=== PATIENT | female | born 1935 | race Caucasian/White ===

== ENCOUNTER 2016-10-31 10:20 | Inpatient (IN) | payer OTHER ==
[~2016-10-31] VITALS: Ht 147.3 cm; Wt 66.2 kg
[2016-10-31 10:36] VITALS: BP 153/90
[2016-10-31] MEDS ORDERED: NACL 0.9% 1,000 ML IV SCH ×2 (10:38)
[2016-10-31] MEDS ORDERED: ONDANSETRON 4 MG/2 ML VIAL IVP ONE ×2 (10:40)
[2016-10-31] MEDS ORDERED: MORPHINE SULFATE 4 MG/ML SYR IVP ONE (10:40)
--- NOTE | 2016-10-31 10:50 | NUR ---
Patient to bed 04.
--- NOTE | 2016-10-31 10:53 | NUR ---
Dr. Mccoy evaluating patient at bedside.
--- NOTE | 2016-10-31 10:55 | NUR ---
PT PRESENTS TO ED DUE TO RUQ PAIN RADIATING TO RIGHT FLANK X 3 DAYS DENIES N/V/D;HX-HTN, HYPERLIPIDEMIA;RX - VIT D3, LOSARTAN/HCT 50-12.5MG, METOPROLOL, ISOSORBIDE, MOTRIN, SIMVASTATIN, ALENDRONATED; SKIN IS PINK/WARM/DRY; AAOX4 WITH EVEN AND STEADY GAIT; LUNGS CLEAR BL; HR EVEN AND REGULAR; PT DENIES ANY FEVER, CP, SOB, OR COUGH AT THIS TIME; PATIENT STATES PAIN OF 10/10 AT THIS TIME;PATIENT POSITIONED FOR COMFORT; HOB ELEVATED; BEDRAILS UP X2; BED DOWN.
--- NOTE | 2016-10-31 10:57 | NUR ---
Patient taken to CT via wheelchair per tech.
[2016-10-31 11:00] LABS: BASOPHILS # (AUTO) 0.2 K/uL (0.00-0.22); BASOPHILS % (AUTO) 1.5 % (0.0-2.0); EOSINOPHILS # (AUTO) 0.2 K/uL (0-0.4); EOSINOPHILS % (AUTO) 1.8 % (0.0-4.0); HEMOGLOBIN 13.9 g/dL (12.0-16.0); LYMPHOCYTES # (AUTO) 2.6 K/uL (2.5-16.5); MEAN CORPUSCULAR HEMOGLOBIN 28 pg (27-31); MEAN CORPUSCULAR HGB CONC 32 g/dL (33-37); MEAN CORPUSCULAR VOLUME 88 fL (80-94); MONOCYTES # (AUTO) 0.9 K/uL (0.8-1.0); MONOCYTES % (AUTO) 7.3 % (1.7-9.3); NEUTROPHILS # (AUTO) 8.6 K/uL (1.8-7.7); NEUTROPHILS % (AUTO) 68.4 % (42.2-75.2); PLATELET COUNT (AUTO) 205 K/uL (140-450); RED CELL DISTRIBUTION WIDTH 13.1 % (11.6-13.7); WHITE BLOOD COUNT (AUTO) 12.5 K/uL (4.8-10.8)
[2016-10-31 11:04] LABS: APPEARANCE,URINE CLEAR (CLEAR); BILIRUBIN,URINE NEGATIVE (NEGATIVE); BLOOD, URINE NEGATIVE (NEGATIVE); COLOR,URINE YELLOW (YELLOW); LEUKOCYTE ESTERASE ,URINE NEGATIVE (NEGATIVE); NITRITE, URINE NEGATIVE (NEGATIVE); PH,URINE 6.5 (5.0-9.0); PROTEIN,URINE NEGATIVE (NEGATIVE); UGLUCOSE NEGATIVE (NEGATIVE); UROBILINOGEN,URINE 0.2 EU/dL (0.2 - 1)
--- NOTE | 2016-10-31 11:07 | NUR ---
Patient back from CT via wheelchair per tech.
[2016-10-31 11:10] LABS: CALCIUM 8.4 mg/dL (8.5-10.1); CARBON DIOXIDE 29.5 mmol/L (21-32); CHLORIDE 103 mmol/L (98-107); CREATININE 0.9 mg/dL (0.6-1.3); GLUCOSE 85 mg/dL (74-106); POTASSIUM 3.5 mmol/L (3.5-5.1); SODIUM SERUM 139 mmol/L (136-145); UREA NITROGEN, BLOOD 14 mg/dL (7-18)
[2016-10-31 11:16] LABS: ALANINE AMINOTRANSFERASE 28 U/L (12-78); ALBUMIN 3.8 g/dL (3.4-5.0); ALKALINE PHOSPHATASE 72 U/L (46-116); AMYLASE 43 U/L (25-115); ASPARTATE AMINOTRANSFERASE 23 U/L (15-37); LIPASE 104 U/L (73-393); TOTAL BILIRUBIN 0.4 mg/dL (0.0-1.0); TOTAL PROTEIN, SERUM 7.8 g/dL (6.4-8.2)
--- NOTE | 2016-10-31 11:24 | NUR ---
ASKED DR BAEZ IF I HAVE TO GIVE THE OTHER DOSE OF ZOFRAN SAID GIVE HER 4 MG ZOFRAN FOR NOW.NO N/V NOTED TO PT.
--- NOTE | 2016-10-31 12:20 | NUR ---
PT RESTING ON BED;VERBALIZES DECREASE OF PAIN FROM 10/10 TO 6/10;NO FACIAL GRIMMACING/MOANING NOTED;
--- NOTE | 2016-10-31 12:41 | NUR ---
Patient will be admitted to care of DR WELLS. Admited to TELE. Will go to room 122 A. Belongings list completed. Report to OFELIA MEDLEY.
[2016-10-31] MEDS: NACL 0.9% 1,000 ML IV SCH (12:42)
[2016-10-31] MEDS ORDERED: ACETAMINOPHEN 325 MG TAB PO PRN (12:45)
[2016-10-31] MEDS ORDERED: ONDANSETRON 4 MG/2 ML VIAL IVP PRN (12:45)
[2016-10-31 13:10] VITALS: BP 156/85
--- NOTE | 2016-10-31 13:10 | NUR ---
PATIENT ADMITTED TO THE UNIT FROM ER. PATIENT AWAKE, ALERT, ORIENTED AND AMBULATORY. NO S/S OF DISTRESS NOTED. NO C/O PAIN AT THIS MOMENT. PATIENT ON 2L O2 VIA NC. SKIN IS INTACT. PATIENT'S GRANDDAUGHTER AT BEDSIDE PROVIDING PATIENT HX. IV LINE NOTED TO THE LEFT AC. PATIENT PLACED ON TELE MONITORING. BED LOWERED WITH CALL LIGHT WITHIN REACH. WILL CONTINUE TO MONITOR
[2016-10-31] MEDS ORDERED: AMPICILLIN/SULBACTAM 3 GM in NACL 0.9% 100 ML IV SCH (13:21)
[2016-10-31 13:22] LABS: PARTIAL THROMBOPLASTIN TIME 26.3 secs (22-35.6); PROTHROMBIN TIME 10.1 secs (10.8-13.4)
[2016-10-31 13:33] LABS: FREE T4 (FREE THYROXINE) 1.01 ng/dL (0.76-1.46); PHOSPHORUS 2.7 mg/dL (2.5-4.9); THYROID STIMULATING HORMONE 9.23 uIU/mL (0.34-3.76)
[2016-10-31] MEDS ORDERED: PNEUMOCOCCAL VACCINE 23 MCG/0.5 ML VIAL IMVAC SCH (14:40)
[2016-10-31 16:00] VITALS: BP 146/78
[2016-10-31] MEDS: MORPHINE SULFATE 2 MG/ML SYR IVP PRN ×2 (16:03→20:59)
--- NOTE | 2016-10-31 16:51 | NUR ---
PATIENT RESTING COMFORTABLY IN BED. GRANDDAUGHTER PRESENT AT BEDSIDE. NO S/S OF DISTRESS NOTED
[2016-10-31] MEDS: AMPICILLIN/SULBACTAM 3 GM in NACL 0.9% 100 ML IV SCH ×2 (17:21→23:55)
[2016-10-31] MEDS: HYDROcodone/APAP 5/325 MG 1 TAB TAB PO PRN (17:21)
[2016-10-31] MEDS ORDERED: CHOL20005 PO (17:54)
[2016-10-31] MEDS ORDERED: HYDR-3423 PO (17:55)
[2016-10-31] MEDS ORDERED: METO25TE2 PO (17:55)
[2016-10-31] MEDS ORDERED: ISOS30TE35 PO (17:56)
[2016-10-31] MEDS ORDERED: SIMV20TA6 PO (17:58)
[2016-10-31] MEDS ORDERED: ALEN70TA52 PO (17:58)
--- NOTE | 2016-10-31 19:25 | NUR ---
PATIENT REPORT GIVEN AT BEDSIDE. PATIENT ENDORSED IN STABLE CONDITION
--- NOTE | 2016-10-31 19:26 | NUR ---
RECEIVED REPORT, ASSUMED CARE. PT AAOX4, CROATIAN SPEAKING. FAMILY AT BEDSIDE. RESPIRATION EVEN AND UNLABORED,NO SOB,NO S/S OF RESPIRATORY DISTRESS AT THIS TIME. IV ACCESS TO LT AC, GAUGE 22, INTACT AND PATENT WITH NO S/S OF INFILTRATION. INFUSING NS @ 70ML/HR. CONTINUE TO MONITOR FOR S/P OVERDOSED. PT ADMITS MARITAL PROBLEM. DENIES FEELING SUICIDAL OR THOUGHTS OF HARMING HERSELF AT THIS TIME. PT ABLE TO CONTRACT FOR SAFETY. EDUCATION PROVIDED RE: SAFETY AD FALL PREVENTION. INSTRUCTED TO SEEK HELP FROM STAFF FOR ANY ONSET OF SI. PT VERBALIZED UNDERSTANDING. ALL NEEDS ANTICIPATED. CALL LIGHT WITHIN EASY REACH. WILL CONTINUE TO MONITOR. Addendum: 10/31/16 at 2245 by Cari Velez RN DISREGARD PREVIOUS CHARTING.
--- NOTE | 2016-10-31 19:27 | NUR ---
RECEIVED REPORT, ASSUMED CARE. PT AAOX4, MALIAN SPEAKING. FAMILY AT BEDSIDE. DENIES PAIN AT THIS TIME. RESPIRATION EVEN AND UNLABORED,NO SOB,NO S/S OF RESPIRATORY DISTRESS AT THIS TIME. IV ACCESS TO LT AC, GAUGE 22, INTACT AND PATENT WITH NO S/S OF INFILTRATION. INFUSING NS @ 70ML/HR. EDUCATION PROVIDED RE: SAFETY AD FALL PREVENTION. INSTRUCTED TO CALL FOR STAFF WHEN GOING TO THE BATHROOM TO PREVENT FROM FALLING. DISCUSSED PLAN OF CARE, TRANSLATED BY STAFF. PT VERBALIZED UNDERSTANDING. ALL NEEDS ANTICIPATED. CALL LIGHT WITHIN EASY REACH. WILL CONTINUE TO MONITOR.
--- NOTE | 2016-10-31 19:55 | NUR ---
CAROTID US BEING DONE AT BEDSIDE.
[2016-10-31 20:00] VITALS: BP 144/72
--- NOTE | 2016-10-31 20:09 | NUR ---
DR. QUINTANILLA IN THE UNIT, SPOKE WITH THE PATIENT AND FAMILY ABOUT THE PLAN SURGERY TOMORROW. PT VERBALIZED UNDERSTANDING AND SIGNED THE CONSENT.
--- NOTE | 2016-10-31 20:50 | NUR ---
SCHEDULED MEDS GIVEN, PT TOLERATED WELL. NO AR.
[2016-10-31] MEDS: SIMVASTATIN 20 MG TAB PO SCH (20:52)
--- NOTE | 2016-10-31 21:21 | NUR ---
PAGED DR. QUINTANILLA TO OBTAIN ORDER FOR TYPE AND SCREEN FOR POSSIBLE BLOOD TRANSFUSION FOR TOMORROW'S SURGERY. MESSAGE LEFT TO ELYSIA. AWAITING FOR CALL BACK.
--- NOTE | 2016-10-31 21:29 | NUR ---
DR. QUINTANILLA CALLED BACK AND ORDERED FOR TYPE AND SCREEN IN AM. NOTED AND CARRIED OUT.
--- NOTE | 2016-10-31 22:20 | NUR ---
ROUTINE ROUNDS, PT SLEEPING AT THIS TIME. RESPIRATION EVEN AND UNLABORED, NO SOB, NO S/S RESPIRATORY DISTRESS. CALL LIGHT KEPT WITHIN REACH. WILL CONTINUE TO MONITOR.
[2016-11-01] VITALS: BP 132/76
[2016-11-01] MEDS: NACL 0.9% 1,000 ML IV SCH (03:00)
[2016-11-01 04:00] VITALS: BP 142/74
--- NOTE | 2016-11-01 04:00 | NUR ---
PT AWAKE AT THIS TIME, WATCHING TV. NO C/O PAIN, NO S/S RESPIRATORY DISTRESS. ENCOURAGED TO GO BACK TO SLEEP. PT VERBALIZED UNDERSTANDING. WILL CONTINUE TO MONITOR.
[2016-11-01] MEDS: AMPICILLIN/SULBACTAM 3 GM in NACL 0.9% 100 ML IV SCH ×3 (05:26→17:56)
--- NOTE | 2016-11-01 07:15 | NUR ---
RECEIVED PATIENT REPORT AT BEDSIDE. PATIENT AWAKE, ALERT AND ORIENTED. NO S/S OF DISTRESS NOTED. PATIENT C/O ABDOMINAL PAIN. WILL MEDICATE. IV LINE TO THE LEFT AC INTACT WITH IVF INFUSING WELL. PATIENT ON TELE MONITORING. BED LOWERED WITH CALL LIGHT WITHIN REACH. WILL CONTINUE TO MONITOR
--- NOTE | 2016-11-01 07:17 | NUR ---
PT AWAKE AND VERBALLY RESPONSIVE. BREATHING EVEN AND UNLABORED,NO SOB, NO S/S OF RESPIRATORY DISTRESS AT THIS TIME. DENIES PAIN. FOR LAP CHOLECYSTECTOMY TODAY. CXR DONE TODAY. ENDORSED TO NEXT SHIFT FOR CONTINUITY OF CARE.
[2016-11-01 07:29] LABS: MAGNESIUM 1.9 mg/dL (1.8-2.4); PHOSPHORUS 2.8 mg/dL (2.5-4.9)
[2016-11-01 07:31] LABS: BASOPHILS # (AUTO) 0.1 K/uL (0.00-0.22); BASOPHILS % (AUTO) 1.5 % (0.0-2.0); EOSINOPHILS # (AUTO) 0.2 K/uL (0-0.4); EOSINOPHILS % (AUTO) 3.1 % (0.0-4.0); HEMOGLOBIN 12.8 g/dL (12.0-16.0); LYMPHOCYTES % (AUTO) 24.6 % (20.5-51.1); MEAN CORPUSCULAR HEMOGLOBIN 30 pg (27-31); MEAN CORPUSCULAR HGB CONC 34 g/dL (33-37); MEAN CORPUSCULAR VOLUME 89 fL (80-94); MONOCYTES # (AUTO) 0.7 K/uL (0.8-1.0); MONOCYTES % (AUTO) 8.2 % (1.7-9.3); NEUTROPHILS % (AUTO) 62.6 % (42.2-75.2); PLATELET COUNT (AUTO) 177 K/uL (140-450); RED CELL DISTRIBUTION WIDTH 13.1 % (11.6-13.7)
[2016-11-01 07:33] LABS: ANION GAP 11.8 (8-16); CALCIUM 7.5 mg/dL (8.5-10.1); CHLORIDE 105 mmol/L (98-107); CREATININE 0.8 mg/dL (0.6-1.3); GLUCOSE 90 mg/dL (74-106); POTASSIUM 3.8 mmol/L (3.5-5.1); SODIUM SERUM 141 mmol/L (136-145); UREA NITROGEN, BLOOD 11 mg/dL (7-18)
[2016-11-01 08:00] VITALS: BP 162/77
[2016-11-01] MEDS: METOPROLOL SUCCINATE 50 MG TABER PO SCH (08:08)
[2016-11-01] MEDS: MORPHINE SULFATE 2 MG/ML SYR IVP PRN (08:09)
[2016-11-01] MEDS: ISOSORBIDE MONONITRATE 30 MG TABER PO SCH (08:09)
[2016-11-01] MEDS ORDERED: NON-FORMULARY ITEM (Losartan/Hydrochlorothiazide (Losartan-Hctz 50-12.5 mg Tab) 1 TAB) PO SCH (09:00)
[2016-11-01] MEDS: CHOLECALCIFEROL 1,000 IU TAB PO SCH (09:02)
[2016-11-01] MEDS: HYDROCHLOROTHIAZIDE 25 MG TAB PO SCH (09:02)
[2016-11-01] MEDS: LOSARTAN 50 MG TAB PO SCH (09:03)
--- NOTE | 2016-11-01 10:15 | NUR ---
PATIENT LEFT THE UNIT FOR SURGERY. PATIENT LEFT IN STABLE CONDITION
[2016-11-01] MEDS ORDERED: ONDANSETRON 4 MG/2 ML VIAL ONE (10:41)
[2016-11-01] MEDS ORDERED: LIDOCAINE 2% 100 MG/5 ML SYR IVP ONE (10:41)
[2016-11-01] MEDS ORDERED: ePHEDrine 50 MG/ML VIAL ONE (10:41)
[2016-11-01] MEDS ORDERED: PROPOFOL 200 MG/20 ML VIAL IV ONE (10:41)
[2016-11-01] MEDS ORDERED: DESFLURANE 240 ML BTL INH ONE (10:41)
[2016-11-01] MEDS ORDERED: DEXAMETHASONE 4 MG/ML VIAL ONE (10:41)
[2016-11-01] MEDS ORDERED: SUCCINYLCHOLINE CHLORIDE 200 MG/10 ML VIAL IVP ONE (10:41)
[2016-11-01] MEDS ORDERED: ROCURONIUM 50 MG/5 ML VIAL IV ONE (10:41)
[2016-11-01] MEDS ORDERED: BUPIVACAINE-MPF 0.25% 30 ML VIAL INJ ONE (10:44)
[2016-11-01] MEDS ORDERED: fentaNYL 0.05 MG/ML VIAL ONE (10:47)
[2016-11-01] MEDS ORDERED: ONDANSETRON 4 MG/2 ML VIAL IVP PRN (11:45)
[2016-11-01] MEDS ORDERED: THROMBIN KIT 20 MU VIAL TP ONE (12:01)
[2016-11-01] MEDS: HYDROmorphone 1 MG/ML AMP IVP PRN ×4 (12:43→13:13)
[2016-11-01] MEDS ORDERED: HYDROmorphone PFS 2 MG/ML SYR ONE (12:56)
--- NOTE | 2016-11-01 13:55 | NUR ---
PATIENT BACK IN THE UNIT FROM SURGERY. PATIENT AWAKE AND ALERT. PATIENT DENIES PAIN AT THIS TIME. 5 LAPAROSCOPIC INCISIONS NOTED TO THE ABD. INCISIONS CLEAN DRY AND INTACT. PATIENT PLACED ON 2L O2. TEMP 97.5 BP: 142/77 HR: 74 O2 SAT: 93%. WILL CONTINUE TO MONITOR
[2016-11-01] MEDS: DEXT 5% / NACL 0.45% 1,000 ML IV SCH (14:27)
[2016-11-01 16:00] VITALS: BP 108/71
--- NOTE | 2016-11-01 18:09 | NUR ---
PATIENT TOLERATED CLEAR LIQUID DIET WELL. NO C/O PAIN
--- NOTE | 2016-11-01 19:25 | NUR ---
PATIENT REPORT GIVEN AT BEDSIDE. PATIENT ENDORSED IN STABLE CONDITION
--- NOTE | 2016-11-01 19:26 | NUR ---
RECEIVED REPORT, ASSUMED CARE. PT AAOX4. RESPIRATION EVEN AND UNLABORED,NO SOB,NO S/S OF RESPIRATORY DISTRESS AT THIS TIME. IV ACCESS TO LT AC, GAUGE 22, INTACT AND PATENT WITH NO S/S OF INFILTRATION. INFUSING D5 1/2 NS @ 90ML/HR. CONTINUE TO MONITOR FOR S/P CHOLECYSTECTOMY. 5 ABDOMINAL SURGICAL INCISION NOTED, CLEAN, NO ACTIVE BLEEDING NOR DRAINAGE AT THIS TIME. OPEN TO AIR. BRUISE NOTED TO RIGHT ABDOMINAL SIDE SURGICAL INCISION. ALL NEEDS ANTICIPATED. PT DENIES PAIN AT THIS TIME. CALL LIGHT WITHIN EASY REACH. WILL CONTINUE TO MONITOR.
[2016-11-01 20:00] VITALS: BP 146/90
--- NOTE | 2016-11-01 20:15 | NUR ---
PT AMBULATES IN THE HALLWAY, ASSISTED BY 2 FAMILY MEMBERS. EDUCATED RE: SAFETY AND FALL PREVENTION. PT VERBALIZED UNDERSTANDING. WILL CONTINUE TO MONITOR.
[2016-11-01] MEDS: SIMVASTATIN 20 MG TAB PO SCH (20:37)
[2016-11-02] VITALS: BP 155/91
[2016-11-02] MEDS: AMPICILLIN/SULBACTAM 3 GM in NACL 0.9% 100 ML IV SCH ×5 (00:24→23:35)
[2016-11-02 04:00] VITALS: BP 158/85
[2016-11-02 06:37] LABS: BASOPHILS % (AUTO) 0.3 % (0.0-2.0); EOSINOPHILS # (AUTO) 0.2 K/uL (0-0.4); EOSINOPHILS % (AUTO) 1.5 % (0.0-4.0); HEMATOCRIT 37.3 % (36-48); HEMOGLOBIN 12.7 g/dL (12.0-16.0); LYMPHOCYTES # (AUTO) 1.3 K/uL (2.5-16.5); LYMPHOCYTES % (AUTO) 9.3 % (20.5-51.1); MEAN CORPUSCULAR HEMOGLOBIN 30 pg (27-31); MEAN CORPUSCULAR HGB CONC 34 g/dL (33-37); MEAN CORPUSCULAR VOLUME 87 fL (80-94); MONOCYTES # (AUTO) 1.1 K/uL (0.8-1.0); MONOCYTES % (AUTO) 7.8 % (1.7-9.3); NEUTROPHILS # (AUTO) 11.8 K/uL (1.8-7.7); NEUTROPHILS % (AUTO) 81.1 % (42.2-75.2); PLATELET COUNT (AUTO) 172 K/uL (140-450); RED BLOOD CELL COUNT(AUTO) 4.29 MIL/uL (4.20-5.40); RED CELL DISTRIBUTION WIDTH 12.7 % (11.6-13.7); WHITE BLOOD COUNT (AUTO) 14.4 K/uL (4.8-10.8)
[2016-11-02 07:08] LABS: ALANINE AMINOTRANSFERASE 86 U/L (12-78); ALBUMIN 3.1 g/dL (3.4-5.0); ALKALINE PHOSPHATASE 52 U/L (46-116); ANION GAP 13.8 (8-16); ASPARTATE AMINOTRANSFERASE 88 U/L (15-37); CARBON DIOXIDE 25.7 mmol/L (21-32); CHLORIDE 97 mmol/L (98-107); GLUCOSE 178 mg/dL (74-106); POTASSIUM 4.5 mmol/L (3.5-5.1); SODIUM SERUM 132 mmol/L (136-145); TOTAL BILIRUBIN 0.7 mg/dL (0.0-1.0); TOTAL PROTEIN, SERUM 7.1 g/dL (6.4-8.2); UREA NITROGEN, BLOOD 12 mg/dL (7-18)
--- NOTE | 2016-11-02 07:16 | NUR ---
PT AWAKE AND VERBALLY RESPONSIVE. NO S/S OF RESPIRATORY DISTRESS. PT C/O ABDOMINAL CRAMPING AND REPORTS OF NOT PASSING GAS YET. OFFERED PAIN MEDS, PT DECLINES. "I AM OKAY." PT IN STABLE CONDITION. ENDORSED TO NEXT SHIFT FOR CONTINUITY OF CARE.
--- NOTE | 2016-11-02 07:17 | NUR ---
PT IS AWAKE, ALERT AN ORIENTED X 4, NIGERIEN SPEAKING. SPEAKS VERY LITTLE [place]. PT C/O SOME DISCOMFORT IN THE ABDOMEN, S/P LAP RHEA 11/01. PT IS AMBULATING WELL. PT WEARS NC 2L O2, HAS SCD'S ON. NOTED THE IV L AC 22G 1/2 NS AT 20ML/HR. WBC INCREASED, SODIUM DECREASED, AST AND ALT ELEVATED. WILL TALK TO MD WHEN THEY GET HERE. ASSISTED TO THE RESTROOM. WILL CONTINUE TO MONITOR PT.
[2016-11-02 08:00] VITALS: BP 174/79
--- NOTE | 2016-11-02 08:30 | NUR ---
DR. QUINTANILLA CAME AND SAW PT. INCISIONAL SITE GOOD. SHE IS CLEARED FOR D/C.
[2016-11-02] MEDS: ISOSORBIDE MONONITRATE 30 MG TABER PO SCH (09:40)
[2016-11-02] MEDS: CHOLECALCIFEROL 1,000 IU TAB PO SCH (09:40)
[2016-11-02] MEDS: LOSARTAN 50 MG TAB PO SCH (09:41)
[2016-11-02] MEDS: HYDROCHLOROTHIAZIDE 25 MG TAB PO SCH (09:41)
[2016-11-02] MEDS: METOPROLOL SUCCINATE 50 MG TABER PO SCH (09:42)
--- NOTE | 2016-11-02 09:45 | NUR ---
ADMINISTERED MORNING MEDS. PT TOLERATED WELL. WILL CONTINUE TO MONITOR PT.
--- NOTE | 2016-11-02 10:15 | NUR ---
AWAKE AND ALERT RESPONSIVE TO IMPRESSION PRINTER VERBAL COMMANDS TOLERATED INCENTIVE SPIROMETRY (IS) WELL WITHOUT INCIDENT ENCOURAGED PATIENT TO USE IS EVERY 2 HOURS WHILE AWAKE
[2016-11-02] MEDS: DEXT 5% / NACL 0.45% 1,000 ML IV SCH (10:32)
[2016-11-02] MEDS: SIMETHICONE 80 MG TAB.CHEW PO PRN ×2 (10:54→14:02)
--- NOTE | 2016-11-02 11:07 | NUR ---
PT LYING IN BED, PRACTICING HER INCENTIVE SPIROMETER. AMBULATED TO THE BATHROOM. PT STILL VERY BLOATED. ADMINISTERED MYLICON. PT TOLERATED WELL. [place] [facility] [place]INUE TO MONIT[place].
--- NOTE | 2016-11-02 13:00 | NUR ---
PT AMBULATING UP AND DOWN THE HALLWAY WITH FAMILY AT SIDE. C/O BLOATING AND UNABLE TO PASS GAS. TALKED TO . DR EXAMINED HER. ORDERED PAIN MED AND GAS RELIEVER.
[2016-11-02 13:22] LABS: BASOPHILS # (AUTO) 0.2 K/uL (0.00-0.22); BASOPHILS % (AUTO) 1.4 % (0.0-2.0); EOSINOPHILS # (AUTO) 0.2 K/uL (0-0.4); EOSINOPHILS % (AUTO) 1.3 % (0.0-4.0); HEMATOCRIT 38.7 % (36-48); HEMOGLOBIN 12.7 g/dL (12.0-16.0); LYMPHOCYTES # (AUTO) 1.8 K/uL (2.5-16.5); MEAN CORPUSCULAR HEMOGLOBIN 29 pg (27-31); MEAN CORPUSCULAR HGB CONC 33 g/dL (33-37); MEAN CORPUSCULAR VOLUME 88 fL (80-94); MONOCYTES # (AUTO) 1.1 K/uL (0.8-1.0); MONOCYTES % (AUTO) 7.1 % (1.7-9.3); NEUTROPHILS # (AUTO) 11.6 K/uL (1.8-7.7); NEUTROPHILS % (AUTO) 78.2 % (42.2-75.2); PLATELET COUNT (AUTO) 190 K/uL (140-450); RED CELL DISTRIBUTION WIDTH 12.8 % (11.6-13.7); WHITE BLOOD COUNT (AUTO) 14.9 K/uL (4.8-10.8)
[2016-11-02] MEDS: MORPHINE SULFATE 2 MG/ML SYR IVP PRN ×2 (14:03→18:07)
--- NOTE | 2016-11-02 14:35 | NUR ---
PT HAVING AN EKG DONE. PT STATES THAT PAIN IS LITTLE BIT BETTER. SHE WILL TRY AND SLEEP. FAMILY IS AT THE LOBBY TO LET PT REST. WILL CONTINUE TO MONITOR PT.
--- NOTE | 2016-11-02 16:00 | NUR ---
PT SLEEPING SOUNDLY. WILL CONTINUE TO MONITOR PT.
--- NOTE | 2016-11-02 18:10 | NUR ---
ADMINISTERED IV ABX AND PAIN MED. PT TOLERATED WELL. FAMILY AT BEDSIDE. WILL CONTINUE TO MONITOR PT.
[2016-11-02 18:15] VITALS: BP 152/82
--- NOTE | 2016-11-02 19:15 | NUR ---
ENDORSED PT TO THE POULTRY PICKING MACHINE TENDER NURSE AT BEDSIDE FOR CONTINUITY OF CARE. PT IS IN STABLE CONDITION.
--- NOTE | 2016-11-02 19:30 | NUR ---
RECEIVED REPORT FROM AM NURSE. PT FAMILY AT BEDSIDE. PT RESTING IN BED, HOB 30 DEGREES, AOX4, ABLE TO VERBALIZED NEEDS. PT DENIES CHEST PAIN, SOB OR S/S OF ACUTE DISTRESS. ABD SOFT AND NONTENDER, HEALING INCISIONS NOTED WITH PINK SURROUNDING TISSUE. PT REPORTS NO GAS AND NO BM SINCE 10/29/16. IV ACCESS ASYMPTOMATIC, PATENT AND INTACT. IVF INFUSING WELL. DISCUSSED AND REVIEWED PLAN OF CARE WITH PT. PT ENCOURAGED TO USE IS HOURLY. PT ENCOURAGED TO AMBULATE TOLERATED. PT VERBALIZED UNDERSTANDING. SAFETY MEASURES ENSURED. CALL LIGHT WITHIN REACH. WILL CONTINUE TO MONITOR.
[2016-11-02 20:00] VITALS: BP 146/70
[2016-11-02] MEDS: SIMVASTATIN 20 MG TAB PO SCH (20:18)
--- NOTE | 2016-11-02 20:21 | NUR ---
PT OBSERVED AMBULATING WELL WITH STANDBY ASSIST. PT BACK SITTING AT BEDSIDE, ADMINISTERED DUE MEDICATION WITH EDUCATION. PT VERBALIZED UNDERSTANDING. PT C/O ABD PAIN, INFORMED PT THAT PAIN MED WAS GIVEN 2 HOURS AGO AND IS NOT DUE YET, PT VERBALIZED THAT SHE IS ABLE TO TOLERATE PAIN AT THIS TIME. PROVIDED CLEAR SODA PER PT REQUEST. SAFETY MEASURES ENSURED. CALL LIGHT WITHIN REACH. WILL CONTINUE TO MONITOR.
[2016-11-03] VITALS: BP 150/69
[2016-11-03] MEDS: MORPHINE SULFATE 2 MG/ML SYR IVP PRN (00:09)
--- NOTE | 2016-11-03 00:15 | NUR ---
TEMP 99.7, COOLING MEASURES AND ICE PACKS ENSURED. WILL CONTINUE TO MONITOR. PT C/O PAIN. SEE PAIN ASSESSMENT. ADMINISTERED IVP MORPHINE 2MG ORDERED. PT RESTING IN BED, SAFETY MEASURES ENSURED. CALL LIGHT WITHIN REACH. WILL CONTINUE TO MONITOR.
--- NOTE | 2016-11-03 02:00 | NUR ---
TEMP RECHECK 98.7; CONDITION STABLE. PT SLEEPING COMFORTABLY.
--- NOTE | 2016-11-03 03:25 | NUR ---
PT SLEEPING COMFORTABLY. CONDITION STABLE. IVF INFUSING WELL. SAFETY MEASURES ENSURED. CALL LIGHT WITHIN REACH. WILL CONTINUE TO MONITOR.
[2016-11-03] MEDS: AMPICILLIN/SULBACTAM 3 GM in NACL 0.9% 100 ML IV SCH ×2 (05:02→12:18)
[2016-11-03 06:31] LABS: BASOPHILS # (AUTO) 0.1 K/uL (0.00-0.22); BASOPHILS % (AUTO) 0.7 % (0.0-2.0); EOSINOPHILS # (AUTO) 0.2 K/uL (0-0.4); EOSINOPHILS % (AUTO) 1.6 % (0.0-4.0); HEMATOCRIT 36.8 % (36-48); HEMOGLOBIN 12.4 g/dL (12.0-16.0); LYMPHOCYTES # (AUTO) 1.5 K/uL (2.5-16.5); LYMPHOCYTES % (AUTO) 14.9 % (20.5-51.1); MEAN CORPUSCULAR HEMOGLOBIN 30 pg (27-31); MEAN CORPUSCULAR HGB CONC 34 g/dL (33-37); MEAN CORPUSCULAR VOLUME 88 fL (80-94); MONOCYTES # (AUTO) 0.8 K/uL (0.8-1.0); MONOCYTES % (AUTO) 8.2 % (1.7-9.3); NEUTROPHILS # (AUTO) 7.8 K/uL (1.8-7.7); NEUTROPHILS % (AUTO) 74.6 % (42.2-75.2); PLATELET COUNT (AUTO) 166 K/uL (140-450); RED CELL DISTRIBUTION WIDTH 12.8 % (11.6-13.7); WHITE BLOOD COUNT (AUTO) 10.4 K/uL (4.8-10.8)
[2016-11-03 07:14] LABS: ANION GAP 11.5 (8-16); CARBON DIOXIDE 27.3 mmol/L (21-32); CHLORIDE 103 mmol/L (98-107); CREATININE 0.8 mg/dL (0.6-1.3); GLUCOSE 107 mg/dL (74-106); POTASSIUM 3.8 mmol/L (3.5-5.1); SODIUM SERUM 138 mmol/L (136-145); UREA NITROGEN, BLOOD 8 mg/dL (7-18)
--- NOTE | 2016-11-03 07:23 | NUR ---
CONDITION STABLE. ENDORSED PLAN OF CARE TO AM NURSE.
--- NOTE | 2016-11-03 07:30 | NUR ---
RECEIVED PT IN BED. ASLEEP. AROUSABLE TO VOICE. ALERT ORIENTED X4. NO SOB NOTED. DENIES ANY PAIN OF DISCOMFORT AT THIS TIME. POSITIVE BOWEL SOUNDS NOTED ON FOUR QUADRANTS. PT AMBULATORY. SAFETY PRECAUTION IN PLACE. CALL LIGHT WITHIN REACH.
[2016-11-03 08:00] VITALS: BP 161/69
[2016-11-03] MEDS: HYDROCHLOROTHIAZIDE 25 MG TAB PO SCH (08:29)
[2016-11-03] MEDS: ISOSORBIDE MONONITRATE 30 MG TABER PO SCH (08:30)
[2016-11-03] MEDS: LOSARTAN 50 MG TAB PO SCH (08:30)
[2016-11-03] MEDS: METOPROLOL SUCCINATE 50 MG TABER PO SCH (08:30)
[2016-11-03] MEDS: CHOLECALCIFEROL 1,000 IU TAB PO SCH (08:31)
[2016-11-03] MEDS: DEXT 5% / NACL 0.45% 1,000 ML IV SCH (08:56)
--- NOTE | 2016-11-03 11:00 | NUR ---
PT WALKED AROUND THE HOSPITAL HALLWAY INDEPENDENTLY, ON STABLE CONDITION. NO SOB, DENIES ANY PAIN OR DISCOMFORT AT THIS TIME.
--- NOTE | 2016-11-03 12:37 | NUR ---
PATIENT HAS BEEN SCREENED AND CATEGORIZED MODERATE NUTRITION RISK. PATIENT WILL BE SEEN WITHIN 3-5 DAYS OF ADMISSION. 11/03/16-11/05/[address]
[2016-11-03] MEDS ORDERED: ACET-2869 PO (14:13)
[2016-11-03] MEDS ORDERED: IBUP800T99 PO (14:13)
[2016-11-03] MEDS ORDERED: DOCU-67 PO (14:14)
[2016-11-03 14:33] VITALS: BP 143/89
--- NOTE | 2016-11-03 14:55 | NUR ---
GRAND DAUGHTER ABDIRAHMAN AT BEDSIDE. PT VERBALIZED SHE HASN'T PASSED GAS AND NO BM YET SINCE THE S/P LAP RHEA. DR. FRASER MADE AWARE.
--- NOTE | 2016-11-03 14:56 | NUR ---
DR. FRASER CAME TO SEE PT. AND PT VERBALIZED SHE IS HAVING SOME ABDOMINAL PAIN. DR. FRASER AWARE AND WILL MEDICATE PRN FOR PAIN ORDERED.
[2016-11-03] MEDS: HYDROcodone/APAP 5/325 MG 1 TAB TAB PO PRN (15:10)
[2016-11-03 16:00] VITALS: BP 121/76
--- NOTE | 2016-11-03 16:30 | NUR ---
PT DENIES ANY PAIN OR DISCOMFORT AT THIS TIME. NO SOB NOTED. DISCHARGE TEACHINGS AND INSTRUCTIONS GIVEN. PT VERBALIZED UNDERSTANDING. FAMILY AT BEDSIDE. PT SIGNED DISCHARGE PAPERS AND DISCHARGE INSTRUCTIONS. IV CANNULA REMOVED AND INTACT. ARMBAND REMOVED. PHOTO TAKEN FOR ABDOMINAL WOUND AND IN TO CHART.
--- NOTE | 2016-11-03 17:05 | NUR ---
PT WHEELED OUT TO THE HOSPITAL PARKING LOT ON STABLE CONDITION TO THEIR PRIVATE OWNED VEHICLE. NO SOB NOTED. DENIES ANY PAIN OR DISCOMFORT AT THIS TIME.
== END 2016-11-03 17:05 | disposition home or self-care (01) | DRG 417 ==
LOC: MED 10:20 → MTU 12:41
PROVIDERS: ADMIT Family Medicine; ATTEND Family Medicine
PROC: 0FT44ZZ Resection of Gallbladder, Percutaneous Endoscopic Approach (ICD-10-PCS; principal; 2016-11-01 11:35)
DX: K80.00 Calculus of gallbladder with acute cholecystitis without obstruction (principal); I50.43 Acute on chronic combined systolic (congestive) and diastolic (congestive) heart failure; E78.5 Hyperlipidemia, unspecified; E02 Subclinical iodine-deficiency hypothyroidism; E66.9 Obesity, unspecified; Z96.653 Presence of artificial knee joint, bilateral; N13.5 Crossing vessel and stricture of ureter without hydronephrosis; K44.9 Diaphragmatic hernia without obstruction or gangrene; N23 Unspecified renal colic; M43.16 Spondylolisthesis, lumbar region; I11.0 Hypertensive heart disease with heart failure; Z88.6 Allergy status to analgesic agent; Z68.30 Body mass index [BMI] 30.0-30.9, adult
CPT/HCPCS: 36415; 71010; 74000; 76705; 80048; 80053; 81003; 82040; 82150; 83036; 83605; 83690; 83735; 83880; 84100; 84439; 84443; 85025; 85610; 85730; 86886; 86900; 86901; 87040; 87081; 90732; 93005; 93880; 96361; 96374; 96375; 99285; J0295; J0330; J1100; J1170; J2001; J2270; J2405; J2704; J3010; J3490; J7030; Q0092

== ENCOUNTER 2016-11-05 14:16 | Emergency (ER) | payer OTHER ==
[~2016-11-05] VITALS: Ht 144.8 cm; Wt 63.5 kg
[~2016-11-05 14:16] MED LIST: ACET-2869 PO; ALEN70TA52 PO; CHOL20005 PO; DOCU-67 PO; HYDR-3423 PO; IBUP800T99 PO; ISOS30TE35 PO; METO25TE2 PO; SIMV20TA6 PO
[2016-11-05 14:17] VITALS: BP 163/77
--- NOTE | 2016-11-05 15:24 | NUR ---
Patient taken to bed 04 via wheelchair per EMT.
--- NOTE | 2016-11-05 15:30 | NUR ---
Patient to OF.
[2016-11-05] MEDS ORDERED: NACL 0.9% 1,000 ML IV SCH (15:37)
[2016-11-05] MEDS ORDERED: ONDANSETRON 4 MG/2 ML VIAL IVP ONE (15:40)
[2016-11-05] MEDS ORDERED: MORPHINE SULFATE 2 MG/ML SYR IVP ONE (15:40)
--- NOTE | 2016-11-05 15:46 | NUR ---
Patient taken to bed 07 via wheelchair per tech.
--- NOTE | 2016-11-05 15:47 | NUR ---
Dr. Rice evalauting patient at bedside.
--- NOTE | 2016-11-05 15:50 | NUR ---
81F BIB FAMILY C/O RT UPPER QUADRANT PAIN, RADIATES TO BACK, SHARP, 10/10 X 2 DAYS S/P LAP RHEA ; HX HTN, HYPERLIPIDEMIA; PT C/O NAUSEA, BUT DENIES VOMITING/DIARRHEA AT THIS TIME; ABDOMEN SOFT, TENDERNESS TO RT UPPER QUADRANT, BOWEL SOUNDS ACTIVE X 4 QUADRANTS; PT NOTED W/ HEALING SURGICAL WOUNDS TO RT ABDOMEN, AND UPPER/LOWER LEFT ABDOMEN; DISCOLORATION NOTED TO SITES WITHOUT BLEEDING OR DRAINAGE AT THIS TIME; PT NOTED W/ DISCOLORATION TO RT A/C FROM PREVIOUS IV INSERTION X 2 DAYS AGO; PT STATES NO PAIN TO SITE AT THIS TIME; PT NOTED W/ HEALED SCARS TO BL KNEES; PT AA&OX4, PERRLA, BL LUNG SOUNDS CLEAR, RR EVEN/UNLABORED, SKIN IS WARM/DRY AT THIS TIME; PT PLACED ON MONITOR, RESTING IN BED W/ HOB ELEVATED AND IN LOWEST POSITION; POSITIONED FOR COMFORT; ER MD MADE AWARE OF STATUS; WILL CONTINUE TO MONITOR.
[2016-11-05 16:46] LABS: BASOPHILS % (AUTO) 0.4 % (0.0-2.0); EOSINOPHILS # (AUTO) 0.2 K/uL (0-0.4); EOSINOPHILS % (AUTO) 1.6 % (0.0-4.0); HEMATOCRIT 38.7 % (36-48); HEMOGLOBIN 12.9 g/dL (12.0-16.0); LYMPHOCYTES # (AUTO) 1.4 K/uL (2.5-16.5); MEAN CORPUSCULAR HEMOGLOBIN 29 pg (27-31); MEAN CORPUSCULAR HGB CONC 33 g/dL (33-37); MEAN CORPUSCULAR VOLUME 87 fL (80-94); MONOCYTES # (AUTO) 0.7 K/uL (0.8-1.0); NEUTROPHILS # (AUTO) 7.8 K/uL (1.8-7.7); PLATELET COUNT (AUTO) 243 K/uL (140-450); RED BLOOD CELL COUNT(AUTO) 4.44 MIL/uL (4.20-5.40); RED CELL DISTRIBUTION WIDTH 12.5 % (11.6-13.7); WHITE BLOOD COUNT (AUTO) 10.1 K/uL (4.8-10.8)
[2016-11-05 16:47] LABS: APPEARANCE,URINE CLEAR (CLEAR); BILIRUBIN,URINE NEGATIVE (NEGATIVE); BLOOD, URINE NEGATIVE (NEGATIVE); COLOR,URINE YELLOW (YELLOW); LEUKOCYTE ESTERASE ,URINE NEGATIVE (NEGATIVE); NITRITE, URINE NEGATIVE (NEGATIVE); PH,URINE 7.5 (5.0-9.0); PROTEIN,URINE NEGATIVE (NEGATIVE); UGLUCOSE NEGATIVE (NEGATIVE)
[2016-11-05 16:57] LABS: ALANINE AMINOTRANSFERASE 38 U/L (14-59); ALKALINE PHOSPHATASE 70 U/L (46-116); AMYLASE 29 U/L (25-115); ANION GAP 12.6 (8-16); ASPARTATE AMINOTRANSFERASE 18 U/L (15-37); CALCIUM 8.3 mg/dL (8.5-10.1); CARBON DIOXIDE 24.6 mmol/L (21-32); CHLORIDE 99 mmol/L (98-107); CREATININE 0.8 mg/dL (0.6-1.3); GLUCOSE 106 mg/dL (74-106); LIPASE 86 U/L (73-393); POTASSIUM 3.2 mmol/L (3.5-5.1); SODIUM SERUM 133 mmol/L (136-145); TOTAL BILIRUBIN 0.6 mg/dL (0.0-1.0); TOTAL PROTEIN, SERUM 7.7 g/dL (6.4-8.2); UREA NITROGEN, BLOOD 6 mg/dL (7-18)
--- NOTE | 2016-11-05 17:01 | NUR ---
US AT BEDSIDE.
--- NOTE | 2016-11-05 17:10 | NUR ---
PT STATES PAIN 8/10 AT THIS TIME; STATES PAIN FEELS BETTER AND WOULD NOT LIKE ADDITIONAL MEDICATION AT THIS TIME, PAIN IS TOLERABLE FOR PT; RR EVEN/UNLABORED; POSITIONED FOR COMFORT; WILL CONTINUE TO MONITOR.
--- NOTE | 2016-11-05 18:01 | NUR ---
PT TAKEN TO CT VIA [facility] ACCOMPANIED BY [employer] AT THIS TIME.
--- NOTE | 2016-11-05 18:01 | NUR ---
Diana caceres in [facility] - 11/05/16 at 1825 by SAULO Patient going to CT via ayesha david tech.
--- NOTE | 2016-11-05 18:25 | NUR ---
Patient back from CT via [facility]
--- NOTE | 2016-11-05 18:57 | NUR ---
ER MD DR. JAQUEZ EVALUATING PT AT BEDSIDE.
[2016-11-05] MEDS ORDERED: PROMETH/CODEINE 6.25-10MG/5ML 5 ML UDC PO ONE (19:05)
--- NOTE | 2016-11-05 19:16 | NUR ---
GOT REPORT FROM OFELIA DENNY. PT. RESTING IN BED, NO S/SX OF DISTRESS AT THIS TIME.
--- NOTE | 2016-11-05 19:16 | NUR ---
Pt report given to OFELIA SONG. Transfer of care at this time.
--- NOTE | 2016-11-05 20:10 | NUR ---
Patient discharged with v/s stable. Written and verbal after care instructions given and explained. Patient alert, oriented and verbalized understanding of instructions. Ambulatory with steady gait. All questions addressed prior to discharge. ID band removed. Patient advised to follow up with PMD. Rx of PROMETHAZINE VC WITH CODEINE 10/6.25/5/5ML given. Patient educated on indication of medication including possible reaction and side effects. Opportunity to ask questions provided and answered.
[2016-11-05 20:35] VITALS: BP 158/77
== END 2016-11-05 20:10 | disposition home or self-care (01) ==
LOC: MED 14:16
DX: G89.18 Other acute postprocedural pain (principal); I10 Essential (primary) hypertension; Z90.49 Acquired absence of other specified parts of digestive tract; Z88.6 Allergy status to analgesic agent
CPT/HCPCS: 36415; 74177; 76705; 80053; 81003; 82150; 83690; 85025; 96361; 96374; 96375; 99285; J2270; J2405; J7030; Q0092; Q9967

== ENCOUNTER 2018-11-02 16:35 | Inpatient (IN) | payer OTHER ==
[~2018-11-02] VITALS: Ht 139.7 cm; Wt 61.7 kg
[~2018-11-02 16:35] MED LIST changes: -ACET-2869 PO; -ALEN70TA52 PO; +ALEN70TA9 PO; -CHOL20005 PO; +CHOL200072 PO; +DOCU-299 PO; -DOCU-67 PO; +HYDR-3293 PO; -HYDR-3423 PO; +HYDR-5122 PO; +IBUP-2218 PO; -IBUP800T99 PO; -ISOS30TE35 PO; +ISOS30TE68 PO
[2018-11-02 16:42] VITALS: BP 115/61
[2018-11-02] MEDS ORDERED: HYDR-3298 PO (18:14)
[2018-11-02] MEDS ORDERED: METO1TAB8 PO (18:14)
[2018-11-02] MEDS ORDERED: ISOS10TA9 PO (18:14)
[2018-11-02] MEDS ORDERED: AMLO10TA87 PO (18:14)
[2018-11-02] MEDS ORDERED: SYN.05 PO ×2 (18:14→21:22)
[2018-11-02] MEDS ORDERED: fentaNYL 0.05 MG/ML VIAL IVP ONE (18:30)
[2018-11-02 18:49] LABS: BASOPHILS % (AUTO) 0.2 % (0.0-2.0); EOSINOPHILS % (AUTO) 0.6 % (0.0-4.0); HEMATOCRIT 32.8 % (36-48); LYMPHOCYTES # (AUTO) 1.6 K/uL (2.5-16.5); LYMPHOCYTES % (AUTO) 27.1 % (20.5-51.1); MEAN CORPUSCULAR HEMOGLOBIN 31 pg (27-31); MEAN CORPUSCULAR HGB CONC 34 g/dL (33-37); MEAN CORPUSCULAR VOLUME 91.6 fL (80-94); MONOCYTES # (AUTO) 0.3 K/uL (0.8-1.0); MONOCYTES % (AUTO) 5.3 % (1.7-9.3); NEUTROPHILS % (AUTO) 66.8 % (42.2-75.2); PLATELET COUNT (AUTO) 180 K/uL (140-450); RED BLOOD CELL COUNT(AUTO) 3.58 MIL/uL (4.20-5.40); RED CELL DISTRIBUTION WIDTH 17.6 % (11.6-13.7); WHITE BLOOD COUNT (AUTO) 6.1 K/uL (4.8-10.8)
[2018-11-02] MEDS ORDERED: fentaNYL 0.05 MG/ML VIAL IVP STA (18:51)
[2018-11-02 18:58] LABS: ANION GAP 11.8 (8-16); CARBON DIOXIDE 22.8 mmol/L (21-32); CHLORIDE 99 mmol/L (98-107); CREATININE 0.7 mg/dL (0.6-1.3); GLUCOSE 111 mg/dL (74-106); POTASSIUM 3.6 mmol/L (3.5-5.1); SODIUM SERUM 130 mmol/L (136-145); UREA NITROGEN, BLOOD 8 mg/dL (7-18)
[2018-11-02] MEDS ORDERED: fentaNYL 0.05 MG/ML VIAL ONE (18:59)
[2018-11-02 19:03] LABS: ALBUMIN 2.7 g/dL (3.4-5.0); ASPARTATE AMINOTRANSFERASE 25 U/L (15-37); TOTAL BILIRUBIN 0.6 mg/dL (0.0-1.0)
[2018-11-02] MEDS ORDERED: NACL 0.9% 1,000 ML IV ONE (20:05)
[2018-11-02] MEDS ORDERED: MORPHINE SULFATE 2 MG/ML SYR IVP ONE (20:05)
[2018-11-02] MEDS ORDERED: ASPIRIN 325 MG TAB PO ONE (20:05)
[2018-11-02] MEDS ORDERED: HYDROcodone/APAP 7.5/325 MG 1 TAB PO PRN (20:15)
[2018-11-02] MEDS ORDERED: ACETAMINOPHEN 325 MG TAB PO PRN (20:15)
[2018-11-02 20:40] VITALS: BP 135/70
[2018-11-02] MEDS ORDERED: MEDICATION REC. PHARMACY CONS. 1 EA MISC MC PRN (20:40)
[2018-11-02 22:48] LABS: PROTHROMBIN TIME 10.4 secs (10.8-13.4)
[2018-11-02 22:57] LABS: FREE T4 (FREE THYROXINE) 1.6 ng/dL (0.76-1.46); MAGNESIUM 1.7 mg/dL (1.8-2.4); PHOSPHORUS 1.4 mg/dL (2.5-4.9); THYROID STIMULATING HORMONE 2.71 uIU/mL (0.34-3.74)
[2018-11-02] MEDS ORDERED: MAG SULF 2000 MG/WATER PREMIX 100 ML IV ONE (23:20)
[2018-11-02] MEDS ORDERED: SODIUM PHOS / POTASSIUM PHOS 1 PKT PDR PO ONE (23:20)
[2018-11-03] MEDS: DOCUSATE SODIUM 100 MG GELCAP PO SCH ×3 (00:02→22:25)
[2018-11-03 00:19] VITALS: BP 105/69
[2018-11-03] MEDS ORDERED: hePARIN / DEXT 5% PREMIX 250 ML IV SCH ×3 (01:05→22:55)
[2018-11-03] MEDS ORDERED: HEPARIN PER PHARMACY MC PRN ×3 (01:05→22:05)
[2018-11-03 04:00] VITALS: BP 109/70
[2018-11-03] MEDS: LEVOTHYROXINE 0.05 MG TAB PO SCH (06:05)
[2018-11-03 06:56] LABS: CHOL/HDL RATIO 1.8 (1-4.5)
[2018-11-03] MEDS ORDERED: BENZOCAINE 20% 57 GM CAN MC SCH (07:30)
[2018-11-03 08:00] VITALS: BP 116/72
[2018-11-03] MEDS: CHLORHEXADINE GLUC 2% CLOTH TP SCH (09:00)
[2018-11-03] MEDS: LOSARTAN 50 MG TAB PO SCH (09:00)
[2018-11-03] MEDS ORDERED: SODIUM FERRIC GLUCONATE 125 MG in NACL 0.9% 100 ML IV ONE (09:00)
[2018-11-03] MEDS ORDERED: amLODIPine 5 MG TAB PO SCH (09:00)
[2018-11-03] MEDS ORDERED: ISOSORBIDE MONONITRATE 30 MG TABER PO SCH (09:00)
[2018-11-03] MEDS ORDERED: SODIUM FERRIC GLUCONATE 125 MG in NACL 0.9% 100 ML IV SCH (10:32)
[2018-11-03] MEDS: BENZOCAINE 20% 57 GM CAN MC SCH ×3 (10:37→17:32)
[2018-11-03] MEDS: CHOLECALCIFEROL 1,000 IU TAB PO SCH (10:38)
[2018-11-03] MEDS ORDERED: NACL 0.9% 1,000 ML IV SCH (11:55)
[2018-11-03 12:00] VITALS: BP 103/59
[2018-11-03] MEDS ORDERED: PIPER/TAZO 3.375GM/D5W PREMIX 50 ML IV SCH (13:00)
[2018-11-03] MEDS: PIPER/TAZO 2.25GM/D5W PREMIX 50 ML IV SCH ×2 (13:09→17:31)
[2018-11-03 16:00] VITALS: BP 105/56
[2018-11-03] MEDS: NACL 0.9% 1,000 ML IV SCH (22:05)
[2018-11-03 23:23] LABS: BASOPHILS % (AUTO) 0.1 % (0.0-2.0); EOSINOPHILS % (AUTO) 0.3 % (0.0-4.0); HEMATOCRIT 27.8 % (36-48); HEMOGLOBIN 9.3 g/dL (12.0-16.0); LYMPHOCYTES # (AUTO) 1.2 K/uL (2.5-16.5); LYMPHOCYTES % (AUTO) 26.1 % (20.5-51.1); MEAN CORPUSCULAR HEMOGLOBIN 31 pg (27-31); MEAN CORPUSCULAR HGB CONC 34 g/dL (33-37); MEAN CORPUSCULAR VOLUME 91.3 fL (80-94); MONOCYTES # (AUTO) 0.5 K/uL (0.8-1.0); MONOCYTES % (AUTO) 10.1 % (1.7-9.3); NEUTROPHILS # (AUTO) 2.8 K/uL (1.8-7.7); NEUTROPHILS % (AUTO) 63.4 % (42.2-75.2); PLATELET COUNT (AUTO) 172 K/uL (140-450); RED BLOOD CELL COUNT(AUTO) 3.05 MIL/uL (4.20-5.40); RED CELL DISTRIBUTION WIDTH 18.1 % (11.6-13.7); WHITE BLOOD COUNT (AUTO) 4.5 K/uL (4.8-10.8)
[2018-11-03 23:39] LABS: ANION GAP 10.7 (8-16); CHLORIDE 100 mmol/L (98-107); CREATININE 0.9 mg/dL (0.6-1.3); GLUCOSE 148 mg/dL (74-106); POTASSIUM 3.7 mmol/L (3.5-5.1); SODIUM SERUM 130 mmol/L (136-145); UREA NITROGEN, BLOOD 11 mg/dL (7-18)
[2018-11-03 23:41] LABS: PROTHROMBIN TIME 11.5 secs (10.8-13.4)
[2018-11-04] VITALS: BP 127/62
[2018-11-04] MEDS: PIPER/TAZO 2.25GM/D5W PREMIX 50 ML IV SCH ×4 (00:07→18:11)
[2018-11-04] MEDS: ONDANSETRON 4 MG/2 ML VIAL IVP PRN (00:41)
[2018-11-04 04:00] VITALS: BP 101/57
[2018-11-04 05:52] LABS: APPEARANCE,URINE CLEAR (CLEAR); BILIRUBIN,URINE NEGATIVE (NEGATIVE); BLOOD, URINE NEGATIVE (NEGATIVE); COLOR,URINE YELLOW (YELLOW); LEUKOCYTE ESTERASE ,URINE NEGATIVE (NEGATIVE); NITRITE, URINE NEGATIVE (NEGATIVE); UGLUCOSE NEGATIVE (NEGATIVE)
[2018-11-04] MEDS: LEVOTHYROXINE 0.05 MG TAB PO SCH (06:06)
[2018-11-04] MEDS: BENZOCAINE 20% 57 GM CAN MC SCH ×3 (06:14→16:36)
[2018-11-04 07:31] LABS: MAGNESIUM 1.7 mg/dL (1.8-2.4); PHOSPHORUS 2.2 mg/dL (2.5-4.9)
[2018-11-04 08:00] VITALS: BP 120/71
[2018-11-04 08:02] LABS: ANION GAP 10.4 (8-16); CARBON DIOXIDE 21.9 mmol/L (21-32); CHLORIDE 102 mmol/L (98-107); CREATININE 0.8 mg/dL (0.6-1.3); GLUCOSE 121 mg/dL (74-106); POTASSIUM 3.3 mmol/L (3.5-5.1); SODIUM SERUM 131 mmol/L (136-145)
[2018-11-04] MEDS ORDERED: HYDROCHLOROTHIAZIDE 25 MG TAB PO SCH (09:00)
[2018-11-04] MEDS ORDERED: RIVAROXABAN 15 MG TAB PO SCH (09:00)
[2018-11-04] MEDS: LOSARTAN 50 MG TAB PO SCH (09:05)
[2018-11-04] MEDS: CHOLECALCIFEROL 1,000 IU TAB PO SCH (09:05)
[2018-11-04] MEDS: DOCUSATE SODIUM 100 MG GELCAP PO SCH ×2 (09:05→20:39)
[2018-11-04] MEDS ORDERED: SODIUM PHOS / POTASSIUM PHOS 1 PKT PDR PO SCH (09:06)
[2018-11-04] MEDS: CHLORHEXADINE GLUC 2% CLOTH TP SCH (09:12)
[2018-11-04 09:15] LABS: TRANSFERRIN 234 mg/dL (200-370)
[2018-11-04] MEDS ORDERED: POTASSIUM CHLORIDE 10 MEQ TABER PO SCH (09:30)
[2018-11-04] MEDS ORDERED: MAGNESIUM OXIDE 400 MG TAB PO SCH (09:30)
[2018-11-04 09:53] LABS: UREA NITROGEN, BLOOD 10 mg/dL (7-18)
[2018-11-04] MEDS ORDERED: HEPARIN PER PHARMACY MC PRN (10:10)
[2018-11-04 10:20] LABS: BASOPHILS % (AUTO) 0.5 % (0.0-2.0); EOSINOPHILS % (AUTO) 0.5 % (0.0-4.0); HEMOGLOBIN 9.3 g/dL (12.0-16.0); LYMPHOCYTES # (AUTO) 1.1 K/uL (2.5-16.5); LYMPHOCYTES % (AUTO) 29.7 % (20.5-51.1); MEAN CORPUSCULAR HEMOGLOBIN 31 pg (27-31); MEAN CORPUSCULAR HGB CONC 33 g/dL (33-37); MEAN CORPUSCULAR VOLUME 92.7 fL (80-94); MONOCYTES # (AUTO) 0.4 K/uL (0.8-1.0); MONOCYTES % (AUTO) 11.2 % (1.7-9.3); NEUTROPHILS # (AUTO) 2.1 K/uL (1.8-7.7); NEUTROPHILS % (AUTO) 58.1 % (42.2-75.2); PLATELET COUNT (AUTO) 172 K/uL (140-450); RED BLOOD CELL COUNT(AUTO) 3.02 MIL/uL (4.20-5.40); RED CELL DISTRIBUTION WIDTH 18.2 % (11.6-13.7); WHITE BLOOD COUNT (AUTO) 3.6 K/uL (4.8-10.8)
[2018-11-04 12:00] VITALS: BP 104/62
[2018-11-04 16:00] VITALS: BP 126/72
[2018-11-04] MEDS ORDERED: SENNA 8.6 MG TAB PO SCH (18:00)
[2018-11-04] MEDS ORDERED: PANTOPRAZOLE 40 MG INJ VIAL IVP SCH (18:10)
[2018-11-04] MEDS: NACL 0.9% 1,000 ML IV SCH (18:14)
[2018-11-04 20:00] VITALS: BP 138/77
[2018-11-04] MEDS: LACTULOSE 20 GM/30 ML UDC PO SCH (20:37)
[2018-11-04] MEDS: POLYETHYLENE GLYCOL 17 GM/PKT PO SCH (20:38)
[2018-11-04] MEDS: SUPREP BOWEL PREP KIT 354 ML SOLN.RECON PO SCH (20:40)
[2018-11-04] MEDS ORDERED: hePARIN / DEXT 5% PREMIX 250 ML IV SCH (21:00)
[2018-11-04] MEDS: SODIUM PHOS / POTASSIUM PHOS 1 PKT PDR PO SCH (21:15)
[2018-11-05] VITALS: BP 114/76
[2018-11-05] MEDS: PIPER/TAZO 2.25GM/D5W PREMIX 50 ML IV SCH ×5 (00:45→23:36)
[2018-11-05] MEDS ORDERED: PIPERACILLIN/TAZOBACTAM 2.25 GM VIAL IV ONE (00:51)
[2018-11-05 04:00] VITALS: BP 120/75
[2018-11-05 04:28] LABS: HEMATOCRIT 31.2 % (36-48); HEMOGLOBIN 10.4 g/dL (12.0-16.0); MEAN CORPUSCULAR HEMOGLOBIN 31 pg (27-31); MEAN CORPUSCULAR HGB CONC 33 g/dL (33-37); PLATELET COUNT (AUTO) 175 K/uL (140-450); RED BLOOD CELL COUNT(AUTO) 3.36 MIL/uL (4.20-5.40); RED CELL DISTRIBUTION WIDTH 18.1 % (11.6-13.7); WHITE BLOOD COUNT (AUTO) 3.3 K/uL (4.8-10.8)
[2018-11-05 04:44] LABS: LYMPHOCYTES % (MANUAL) 33 % (20-46); MONOCYTES % (MANUAL) 14 % (5-12)
[2018-11-05 04:55] LABS: ANION GAP 14.2 (8-16); CHLORIDE 110 mmol/L (98-107); CREATININE 0.8 mg/dL (0.6-1.3); GLUCOSE 121 mg/dL (74-106); POTASSIUM 4.2 mmol/L (3.5-5.1); SODIUM SERUM 143 mmol/L (136-145); UREA NITROGEN, BLOOD 8 mg/dL (7-18)
[2018-11-05 04:58] LABS: MAGNESIUM 1.7 mg/dL (1.8-2.4); PHOSPHORUS 2.6 mg/dL (2.5-4.9)
[2018-11-05] MEDS: LEVOTHYROXINE 0.05 MG TAB PO SCH (05:53)
[2018-11-05] MEDS ORDERED: PANTOPRAZOLE 40 MG INJ VIAL IVP SCH (06:30)
[2018-11-05 08:00] VITALS: BP 131/72
[2018-11-05] MEDS ORDERED: FERROUS SULFATE 325 MG TABEC PO SCH (08:00)
[2018-11-05] MEDS: DOCUSATE SODIUM 100 MG GELCAP PO SCH (08:11)
[2018-11-05] MEDS: ASCORBIC ACID 500 MG TAB PO SCH (08:11)
[2018-11-05] MEDS: CHOLECALCIFEROL 1,000 IU TAB PO SCH (08:12)
[2018-11-05] MEDS: LOSARTAN 50 MG TAB PO SCH (08:12)
[2018-11-05] MEDS: LACTULOSE 20 GM/30 ML UDC PO SCH (08:12)
[2018-11-05] MEDS: POLYETHYLENE GLYCOL 17 GM/PKT PO SCH (08:12)
[2018-11-05] MEDS: SODIUM PHOS / POTASSIUM PHOS 1 PKT PDR PO SCH ×2 (08:13→21:05)
[2018-11-05] MEDS: SUPREP BOWEL PREP KIT 354 ML SOLN.RECON PO SCH (08:20)
[2018-11-05] MEDS: BENZOCAINE 20% 57 GM CAN MC SCH ×3 (08:25→17:13)
[2018-11-05] MEDS: CHLORHEXADINE GLUC 2% CLOTH TP SCH (08:26)
[2018-11-05] MEDS ORDERED: MIDAZOLAM 2 MG/2 ML VIAL ONE (10:29)
[2018-11-05] MEDS ORDERED: fentaNYL 0.05 MG/ML VIAL ONE (10:29)
[2018-11-05] MEDS ORDERED: fentaNYL 0.05 MG/ML VIAL IVP ONE (11:55)
[2018-11-05] MEDS ORDERED: MIDAZOLAM 2 MG/2 ML VIAL IVP ONE (11:55)
[2018-11-05 12:00] VITALS: BP 139/63
[2018-11-05] MEDS ORDERED: HEPARIN PER PHARMACY MC PRN (12:00)
[2018-11-05] MEDS: SUCRALFATE 1 GM TAB PO SCH ×3 (13:06→21:05)
[2018-11-05] MEDS: FERROUS SULFATE 325 MG TABEC PO SCH ×2 (13:07→17:12)
[2018-11-05] MEDS: hePARIN / DEXT 5% PREMIX 250 ML IV SCH (15:05)
[2018-11-05 15:46] LABS: FOLIC ACID > 20.00 ng/mL (>3.0)
[2018-11-05 16:00] VITALS: BP 132/67
[2018-11-05] MEDS ORDERED: MAGNESIUM OXIDE 400 MG TAB PO SCH (16:30)
[2018-11-05 20:00] VITALS: BP 130/70
[2018-11-06] VITALS: BP 125/69
[2018-11-06 04:00] VITALS: BP_SYST 122; BP_DIAS 60; BP_DIAS 82
[2018-11-06 06:59] LABS: ANION GAP 12.5 (8-16); CARBON DIOXIDE 24.1 mmol/L (21-32); CHLORIDE 104 mmol/L (98-107); CREATININE 0.8 mg/dL (0.6-1.3); GLUCOSE 131 mg/dL (74-106); POTASSIUM 3.6 mmol/L (3.5-5.1); SODIUM SERUM 137 mmol/L (136-145); UREA NITROGEN, BLOOD 10 mg/dL (7-18)
[2018-11-06 07:04] LABS: MAGNESIUM 1.6 mg/dL (1.8-2.4); PHOSPHORUS 1.9 mg/dL (2.5-4.9)
[2018-11-06] MEDS: BENZOCAINE 20% 57 GM CAN MC SCH ×3 (07:30→17:23)
[2018-11-06] MEDS: PIPER/TAZO 2.25GM/D5W PREMIX 50 ML IV SCH ×3 (07:45→17:22)
[2018-11-06] MEDS: LEVOTHYROXINE 0.05 MG TAB PO SCH (07:47)
[2018-11-06 07:58] LABS: HEMATOCRIT 29.5 % (36-48); HEMOGLOBIN 9.9 g/dL (12.0-16.0); MEAN CORPUSCULAR HEMOGLOBIN 31 pg (27-31); MEAN CORPUSCULAR HGB CONC 34 g/dL (33-37); MEAN CORPUSCULAR VOLUME 92.3 fL (80-94); PLATELET COUNT (AUTO) 184 K/uL (140-450); RED CELL DISTRIBUTION WIDTH 18.3 % (11.6-13.7); WHITE BLOOD COUNT (AUTO) 2.1 K/uL (4.8-10.8)
[2018-11-06] MEDS: LANSOPRAZOLE 30 MG CAPDR PO SCH (07:58)
[2018-11-06 08:00] VITALS: BP 142/67
[2018-11-06] MEDS: CHLORHEXADINE GLUC 2% CLOTH TP SCH (09:00)
[2018-11-06] MEDS: POLYETHYLENE GLYCOL 17 GM/PKT PO SCH (09:00)
[2018-11-06 09:04] LABS: LYMPHOCYTES % (MANUAL) 50 % (20-46)
[2018-11-06 09:05] LABS: MONOCYTES % (MANUAL) 15 % (5-12)
[2018-11-06] MEDS: SUCRALFATE 1 GM TAB PO SCH ×4 (10:15→21:28)
[2018-11-06] MEDS: LOSARTAN 50 MG TAB PO SCH (10:15)
[2018-11-06] MEDS: FERROUS SULFATE 325 MG TABEC PO SCH ×3 (10:16→17:23)
[2018-11-06] MEDS: ASCORBIC ACID 500 MG TAB PO SCH (10:16)
[2018-11-06] MEDS: CHOLECALCIFEROL 1,000 IU TAB PO SCH (10:16)
[2018-11-06] MEDS: SODIUM PHOS / POTASSIUM PHOS 1 PKT PDR PO SCH ×2 (10:17→18:30)
[2018-11-06] MEDS: ONDANSETRON 4 MG/2 ML VIAL IVP PRN (10:18)
[2018-11-06 12:00] VITALS: BP 136/65
[2018-11-06 16:00] VITALS: BP 132/66
[2018-11-06] MEDS ORDERED: SIMETHICONE 80 MG TAB.CHEW PO PRN (17:25)
[2018-11-06] MEDS ORDERED: SIMETHICONE 80 MG TAB.CHEW PO ONE (17:25)
[2018-11-06] MEDS ORDERED: METOCLOPRAMIDE 10 MG TAB PO SCH (17:25)
[2018-11-06] MEDS ORDERED: MAG SULF 2000 MG/WATER PREMIX 100 ML IV ONE (17:35)
[2018-11-06] MEDS ORDERED: KETOROLAC 15 MG/ML VIAL IVP ONE (17:35)
[2018-11-06] MEDS ORDERED: KETOROLAC 15 MG/ML VIAL IVP PRN (17:35)
[2018-11-06] MEDS ORDERED: SODIUM PHOS / POTASSIUM PHOS 1 PKT PDR ONE (18:29)
[2018-11-06] MEDS ORDERED: KETOROLAC 15 MG/ML VIAL ONE (18:30)
[2018-11-06] MEDS: hePARIN / DEXT 5% PREMIX 250 ML IV SCH (20:08)
[2018-11-07] VITALS: BP 113/62
[2018-11-07] MEDS: PIPER/TAZO 2.25GM/D5W PREMIX 50 ML IV SCH ×3 (00:43→11:21)
[2018-11-07] MEDS: hePARIN / DEXT 5% PREMIX 250 ML IV SCH (04:54)
[2018-11-07] MEDS: LEVOTHYROXINE 0.05 MG TAB PO SCH (05:30)
[2018-11-07] MEDS: LANSOPRAZOLE 30 MG CAPDR PO SCH (05:30)
[2018-11-07 06:39] LABS: BASOPHILS % (AUTO) 0.3 % (0.0-2.0); EOSINOPHILS # (AUTO) 0.1 K/uL (0-0.4); HEMATOCRIT 25.9 % (36-48); HEMOGLOBIN 8.7 g/dL (12.0-16.0); LYMPHOCYTES # (AUTO) 1.1 K/uL (2.5-16.5); LYMPHOCYTES % (AUTO) 45.9 % (20.5-51.1); MEAN CORPUSCULAR HEMOGLOBIN 31 pg (27-31); MEAN CORPUSCULAR HGB CONC 34 g/dL (33-37); MEAN CORPUSCULAR VOLUME 92.6 fL (80-94); MONOCYTES # (AUTO) 0.9 K/uL (0.8-1.0); MONOCYTES % (AUTO) 37.6 % (1.7-9.3); NEUTROPHILS # (AUTO) 0.3 K/uL (1.8-7.7); NEUTROPHILS % (AUTO) 13.2 % (42.2-75.2); PLATELET COUNT (AUTO) 166 K/uL (140-450); RED CELL DISTRIBUTION WIDTH 18.4 % (11.6-13.7); WHITE BLOOD COUNT (AUTO) 2.4 K/uL (4.8-10.8)
[2018-11-07 06:44] LABS: ANION GAP 10.6 (8-16); CARBON DIOXIDE 24.8 mmol/L (21-32); CHLORIDE 100 mmol/L (98-107); GLUCOSE 110 mg/dL (74-106); POTASSIUM 4.4 mmol/L (3.5-5.1); SODIUM SERUM 131 mmol/L (136-145); UREA NITROGEN, BLOOD 13 mg/dL (7-18)
[2018-11-07] MEDS: BENZOCAINE 20% 57 GM CAN MC SCH ×2 (07:30→11:22)
[2018-11-07 08:00] VITALS: BP 113/62
[2018-11-07] MEDS: POLYETHYLENE GLYCOL 17 GM/PKT PO SCH (08:30)
[2018-11-07] MEDS: SODIUM PHOS / POTASSIUM PHOS 1 PKT PDR PO SCH ×2 (08:31→11:20)
[2018-11-07] MEDS: SUCRALFATE 1 GM TAB PO SCH ×2 (08:33→12:42)
[2018-11-07] MEDS: CHOLECALCIFEROL 1,000 IU TAB PO SCH (08:33)
[2018-11-07] MEDS: ASCORBIC ACID 500 MG TAB PO SCH (08:33)
[2018-11-07] MEDS: FERROUS SULFATE 325 MG TABEC PO SCH ×2 (08:33→12:42)
[2018-11-07] MEDS: LOSARTAN 50 MG TAB PO SCH (08:34)
[2018-11-07] MEDS: METOCLOPRAMIDE 10 MG TAB PO SCH ×2 (08:35→11:21)
[2018-11-07] MEDS: CHLORHEXADINE GLUC 2% CLOTH TP SCH (08:46)
[2018-11-07] MEDS ORDERED: SIME80CT27 PO (10:34)
[2018-11-07] MEDS ORDERED: FER325 PO (10:34)
[2018-11-07] MEDS ORDERED: VITC500 PO (10:34)
[2018-11-07] MEDS ORDERED: METO10TA98 PO (10:34)
[2018-11-07] MEDS ORDERED: RIVA15TA1 PO (10:34)
[2018-11-07] MEDS ORDERED: TRAM50TA1 PO (10:34)
== END 2018-11-07 15:34 | disposition home or self-care (01) | DRG 981 ==
LOC: MED 16:35 → MTU 20:15 → MMU 20:40 → MTU 11-07 11:33
PROVIDERS: ADMIT General Practice; ATTEND General Practice
PROC: 0DB68ZX Excision of Stomach, Via Natural or Artificial Opening Endoscopic, Diagnostic (ICD-10-PCS; principal; 2018-11-05 10:00)
PROC: 0W3P4ZZ Control Bleeding in Gastrointestinal Tract, Percutaneous Endoscopic Approach (ICD-10-PCS; 2018-11-05 10:00)
PROC: 0DJD8ZZ Inspection of Lower Intestinal Tract, Via Natural or Artificial Opening Endoscopic (ICD-10-PCS; 2018-11-05 10:00)
DX: I26.99 Other pulmonary embolism without acute cor pulmonale (principal); E43 Unspecified severe protein-calorie malnutrition; C78.89 Secondary malignant neoplasm of other digestive organs; E87.1 Hypo-osmolality and hyponatremia; C78.00 Secondary malignant neoplasm of unspecified lung; C25.9 Malignant neoplasm of pancreas, unspecified; N13.30 Unspecified hydronephrosis; M94.0 Chondrocostal junction syndrome [Tietze]; E66.9 Obesity, unspecified; D50.9 Iron deficiency anemia, unspecified; D69.6 Thrombocytopenia, unspecified; E03.9 Hypothyroidism, unspecified; E83.39 Other disorders of phosphorus metabolism; E83.42 Hypomagnesemia; E87.6 Hypokalemia; I10 Essential (primary) hypertension; K57.30 Diverticulosis of large intestine without perforation or abscess without bleeding; K64.8 Other hemorrhoids; M81.0 Age-related osteoporosis without current pathological fracture; E86.0 Dehydration; D64.9 Anemia, unspecified; K12.0 Recurrent oral aphthae; K83.8 Other specified diseases of biliary tract; Z68.31 Body mass index [BMI] 31.0-31.9, adult; Z71.3 Dietary counseling and surveillance; Z79.01 Long term (current) use of anticoagulants; Z85.07 Personal history of malignant neoplasm of pancreas
CPT/HCPCS: 36415; 71045; 71046; 71275; 74018; 80048; 80053; 81003; 82150; 82272; 82607; 82728; 82746; 83036; 83540; 83690; 83735; 83880; 84100; 84439; 84443; 84484; 85025; 85045; 85610; 85730; 86677; 87081; 92610; 93005; 96374; 96375; 97163-GP; 99285; C9113; J1644; J1885; J2250; J2270; J2405; J2543; J2916; J3010; J3475; J7030; J7060; J8597; Q0092; Q9967

== ENCOUNTER 2018-11-22 13:50 | Emergency (ER) | payer OTHER ==
[~2018-11-22] VITALS: Ht 139.7 cm; Wt 58.6 kg
[~2018-11-22 13:50] MED LIST changes: -ALEN70TA9 PO; +AMLO10TA87 PO; +FER325 PO; -HYDR-3293 PO; +HYDR-3298 PO; -HYDR-5122 PO; -IBUP-2218 PO; +METO10TA98 PO; -METO25TE2 PO; +RIVA15TA1 PO; +SIME80CT27 PO; -SIMV20TA6 PO; +SYN.05 PO; +TRAM50TA1 PO; +VITC500 PO
[2018-11-22 14:06] VITALS: BP 118/72
--- NOTE | 2018-11-22 14:20 | NUR ---
PT C/O ASSISTED TO BED 7.
--- NOTE | 2018-11-22 14:38 | NUR ---
C/O GENERALIZED BACK PAIN & SOB ACCOMPANIED BY BILAT UPPER QUADRANT ABD PAIN 7/10 AND DULL X 1 WEEK. PT REPORTS RECTAL BLEEDING X 1 WEEK WHEN HAVING A BM. DENIES N/V/D/FEVER/CP. PT CURRENTLY RECEIVING CHEMOTHERAPY, LAST TREATMENT WAS 1 WEEK AGO.
--- NOTE | 2018-11-22 14:50 | NUR ---
DR. DAILEY AT BEDSIDE EVALUATING PT
[2018-11-22] MEDS ORDERED: ONDANSETRON 4 MG/2 ML VIAL IVP ONE (15:05)
[2018-11-22] MEDS ORDERED: MORPHINE SULFATE 2 MG/ML SYR IVP ONE (15:05)
[2018-11-22 15:19] LABS: BASOPHILS % (AUTO) 0.1 % (0.0-2.0); EOSINOPHILS % (AUTO) 0.3 % (0.0-4.0); HEMATOCRIT 29.9 % (36-48); HEMOGLOBIN 9.8 g/dL (12.0-16.0); LYMPHOCYTES # (AUTO) 1.2 K/uL (2.5-16.5); MEAN CORPUSCULAR HEMOGLOBIN 30 pg (27-31); MEAN CORPUSCULAR HGB CONC 33 g/dL (33-37); MEAN CORPUSCULAR VOLUME 92.4 fL (80-94); MONOCYTES # (AUTO) 0.7 K/uL (0.8-1.0); MONOCYTES % (AUTO) 5.4 % (1.7-9.3); NEUTROPHILS # (AUTO) 11.2 K/uL (1.8-7.7); NEUTROPHILS % (AUTO) 85.2 % (42.2-75.2); PLATELET COUNT (AUTO) 230 K/uL (140-450); RED BLOOD CELL COUNT(AUTO) 3.24 MIL/uL (4.20-5.40); WHITE BLOOD COUNT (AUTO) 13.2 K/uL (4.8-10.8)
--- NOTE | 2018-11-22 15:30 | NUR ---
20G IV INSERTED TO L FOREARM, PT TOLERATED PROCEDURE WELL
[2018-11-22 15:35] LABS: ANION GAP 11.9 (8-16); CARBON DIOXIDE 24.2 mmol/L (21-32); CHLORIDE 100 mmol/L (98-107); CREATININE 0.8 mg/dL (0.6-1.3); GLUCOSE 104 mg/dL (74-106); POTASSIUM 3.1 mmol/L (3.5-5.1); SODIUM SERUM 133 mmol/L (136-145); UREA NITROGEN, BLOOD 16 mg/dL (7-18)
[2018-11-22 15:41] LABS: ALBUMIN 2.6 g/dL (3.4-5.0); ASPARTATE AMINOTRANSFERASE 22 U/L (15-37); PROTHROMBIN TIME 14.9 secs (10.8-13.4); TOTAL BILIRUBIN 0.4 mg/dL (0.0-1.0)
--- NOTE | 2018-11-22 16:08 | NUR ---
PT RESTING IN BED, NO NEW NEEDS AT THIS TIME
--- NOTE | 2018-11-22 16:15 | NUR ---
PT STATES THE PAIN MEDICATION IS HELPING AND HER PAIN IS RELIEVED TO 3/10
[2018-11-22 17:00] VITALS: BP 96/51
--- NOTE | 2018-11-22 17:00 | NUR ---
Patient discharged with v/s stable. Written and verbal after care instructions given and explained. Rx of NORCO, MIRALAX given. Patient educated on indication of medication including possible reaction and side effects.All questions addressed prior to discharge. ID band removed. IV SITE REMOVED, Patient advised to follow up with PMD.
== END 2018-11-22 17:00 | disposition home or self-care (01) ==
LOC: MED 13:50
DX: G89.29 Other chronic pain (principal); R10.13 Epigastric pain; R07.89 Other chest pain; K59.00 Constipation, unspecified; C25.9 Malignant neoplasm of pancreas, unspecified; I10 Essential (primary) hypertension; E03.9 Hypothyroidism, unspecified; Z96.653 Presence of artificial knee joint, bilateral; Z86.711 Personal history of pulmonary embolism; Z88.6 Allergy status to analgesic agent; Z79.891 Long term (current) use of opiate analgesic; Z79.01 Long term (current) use of anticoagulants; Z79.899 Other long term (current) drug therapy
CPT/HCPCS: 36415; 36600; 71045; 80053; 82803; 83690; 83880; 84484; 85025; 85610; 85730; 93005; 96374; 96375; 99284; J2270; J2405; Q0092

== ENCOUNTER 2019-01-04 11:24 | Inpatient (IN) | payer OTHER ==
[~2019-01-04] VITALS: Ht 142.2 cm; Wt 56.7 kg
[2019-01-04 11:39] VITALS: BP 133/70
[2019-01-04] MEDS ORDERED: MORPHINE SULFATE 4 MG/ML SYR IM ONE (13:50)
[2019-01-04] MEDS ORDERED: NACL 0.9% 1,000 ML IV ONE ×3 (13:50→15:30)
[2019-01-04 14:48] LABS: BASOPHILS % (AUTO) 0.1 % (0.0-2.0); EOSINOPHILS % (AUTO) 0.1 % (0.0-4.0); HEMATOCRIT 33.3 % (36-48); HEMOGLOBIN 10.9 g/dL (12.0-16.0); LYMPHOCYTES # (AUTO) 0.5 K/uL (2.5-16.5); LYMPHOCYTES % (AUTO) 3.6 % (20.5-51.1); MEAN CORPUSCULAR HEMOGLOBIN 30 pg (27-31); MEAN CORPUSCULAR HGB CONC 33 g/dL (33-37); MEAN CORPUSCULAR VOLUME 92.9 fL (80-94); MONOCYTES # (AUTO) 0.7 K/uL (0.8-1.0); MONOCYTES % (AUTO) 5.2 % (1.7-9.3); NEUTROPHILS # (AUTO) 11.7 K/uL (1.8-7.7); PLATELET COUNT (AUTO) 266 K/uL (140-450); RED BLOOD CELL COUNT(AUTO) 3.58 MIL/uL (4.20-5.40); RED CELL DISTRIBUTION WIDTH 16.2 % (11.6-13.7); WHITE BLOOD COUNT (AUTO) 12.8 K/uL (4.8-10.8)
[2019-01-04 14:51] LABS: APPEARANCE,URINE CLEAR (CLEAR); BILIRUBIN,URINE 2+ (NEGATIVE); BLOOD, URINE NEGATIVE (NEGATIVE); COLOR,URINE BROWN (YELLOW); LEUKOCYTE ESTERASE ,URINE NEGATIVE (NEGATIVE); NITRITE, URINE POSITIVE (NEGATIVE); UGLUCOSE TRACE (NEGATIVE)
[2019-01-04 15:06] LABS: ANION GAP 17.6 (8-16); CARBON DIOXIDE 19.4 mmol/L (21-32); CHLORIDE 104 mmol/L (98-107); CREATININE 1.3 mg/dL (0.6-1.3); GLUCOSE 146 mg/dL (74-106); SODIUM SERUM 138 mmol/L (136-145); UREA NITROGEN, BLOOD 24 mg/dL (7-18)
[2019-01-04 15:19] LABS: ASPARTATE AMINOTRANSFERASE 31 U/L (15-37); LIPASE 49 U/L (73-393); TOTAL BILIRUBIN 1.2 mg/dL (0.0-1.0)
[2019-01-04 15:25] LABS: RBC,URINE 0-5 /HPF (0-5)
[2019-01-04] MEDS ORDERED: VANCOMYCIN 1GM/DEXT 5% PREMIX 200 ML IV ONE (15:25)
[2019-01-04] MEDS ORDERED: PIPERACILLIN/TAZOBACTAM 3.375 GM in DEXTROSE 5% 50 ML IV ONE (15:25)
[2019-01-04] MEDS ORDERED: METO25TA PO (15:35)
[2019-01-04] MEDS ORDERED: PIPERACILLIN/TAZOBACTAM 3.375 GM VIAL IV ONE (15:52)
[2019-01-04] MEDS ORDERED: KCL 20 MEQ/WATER INJ PREMIX 200 ML IV ONE (16:00)
[2019-01-04] MEDS ORDERED: VANCOMYCIN 1,000 MG in DEXTROSE 5% 250 ML IV SCH (16:30)
[2019-01-04] MEDS ORDERED: VANCOMYCIN 1,000 MG VIAL ONE (16:40)
[2019-01-04] MEDS ORDERED: metroNIDAZOLE 500 MG/NS PREMIX 100 ML IV ONE (17:05)
[2019-01-04] MEDS ORDERED: MORPHINE SULFATE 2 MG/ML SYR IVP PRN (17:25)
[2019-01-04] MEDS ORDERED: HYDROcodone/APAP 5/325 MG 1 TAB TAB PO PRN (17:25)
[2019-01-04] MEDS ORDERED: ONDANSETRON 4 MG/2 ML VIAL IM/IVP PRN (17:25)
[2019-01-04] MEDS ORDERED: LORazepam 2 MG/ML VIAL IM/IVP PRN (17:25)
[2019-01-04] MEDS ORDERED: ZOLPIDEM 5 MG TAB PO PRN (17:25)
[2019-01-04] MEDS ORDERED: DOCUSATE SODIUM 100 MG GELCAP PO PRN (17:25)
[2019-01-04] MEDS ORDERED: ACETAMINOPHEN 325 MG TAB PO PRN (17:25)
[2019-01-04] MEDS ORDERED: POTASSIUM CHLORIDE 10 MEQ TABER PO SCH (17:40)
[2019-01-04] MEDS ORDERED: VANCOMYCIN PER PHARMACY MC PRN (17:40)
[2019-01-04 18:18] VITALS: BP 111/49
[2019-01-04 18:55] LABS: MAGNESIUM 2.3 mg/dL (1.8-2.4); PHOSPHORUS 4.3 mg/dL (2.5-4.9); THYROID STIMULATING HORMONE 4.27 uIU/mL (0.34-3.74)
[2019-01-04] MEDS ORDERED: ALBUTEROL SULFATE/IPRATROPIU 3 ML SOL IH PRN (19:25)
[2019-01-04 19:30] VITALS: BP 108/58
[2019-01-04] MEDS ORDERED: PHENYLEPHRINE 0.25% 1 EA SUPP RC PRN (20:25)
[2019-01-04] MEDS ORDERED: MELATONIN 3 MG TAB PO PRN (20:40)
[2019-01-04] MEDS ORDERED: MEDICATION REC. PHARMACY CONS. 1 EA MISC MC PRN (20:40)
[2019-01-04] MEDS ORDERED: METO25TE2 PO (20:43)
[2019-01-04] MEDS ORDERED: RIVA15TA1 PO (20:43)
[2019-01-04] MEDS ORDERED: hydrALAZINE 20 MG/ML VIAL IVP PRN (20:50)
[2019-01-04] MEDS ORDERED: PIPERACILLIN/TAZOBACTAM 3.375 GM in DEXTROSE 5% 50 ML IV SCH (21:00)
[2019-01-04] MEDS ORDERED: KCL 20 MEQ/WATER INJ PREMIX 100 ML IV SCH (22:00)
[2019-01-04] MEDS: PIPERACILLIN/TAZOBACTAM 2.25 GM in DEXTROSE 5% 50 ML IV SCH (22:15)
[2019-01-04] MEDS: DEXT 5% /NACL 0.9% 1,000 ML IV SCH (22:19)
[2019-01-05] VITALS: BP 108/45
[2019-01-05] MEDS ORDERED: TRIAMCINOLONE 0.1% CRM 15 GM TUBE TP SCH ×2 (02:25→10:50)
[2019-01-05] MEDS ORDERED: INSULIN LISPRO SLIDING SCALE 100 UNITS/ML VIAL SUBQ PRN (02:45)
[2019-01-05] MEDS ORDERED: DEXTROSE 50% 50 ML SYR IVP PRN (02:45)
[2019-01-05] MEDS ORDERED: GLUCAGON 1 MG VIAL IVP PRN (02:45)
[2019-01-05 04:00] VITALS: BP 146/76
[2019-01-05] MEDS: BLOOD GLUCOSE MONITORING 1 DEV DEV FS SCH ×4 (05:11→22:00)
[2019-01-05] MEDS ORDERED: ALBUTEROL SULFATE/IPRATROPIU 3 ML SOL IH SCH (06:00)
[2019-01-05] MEDS: LEVOTHYROXINE 0.05 MG TAB PO SCH (06:01)
[2019-01-05] MEDS: PIPERACILLIN/TAZOBACTAM 2.25 GM in DEXTROSE 5% 50 ML IV SCH ×2 (06:01→12:35)
[2019-01-05 06:54] LABS: BASOPHILS % (AUTO) 0.1 % (0.0-2.0); EOSINOPHILS % (AUTO) 0.3 % (0.0-4.0); HEMATOCRIT 25.8 % (36-48); HEMOGLOBIN 8.5 g/dL (12.0-16.0); LYMPHOCYTES # (AUTO) 1.5 K/uL (2.5-16.5); LYMPHOCYTES % (AUTO) 10.3 % (20.5-51.1); MEAN CORPUSCULAR HEMOGLOBIN 30 pg (27-31); MEAN CORPUSCULAR HGB CONC 33 g/dL (33-37); MEAN CORPUSCULAR VOLUME 92.2 fL (80-94); MONOCYTES # (AUTO) 1.2 K/uL (0.8-1.0); MONOCYTES % (AUTO) 8.4 % (1.7-9.3); NEUTROPHILS # (AUTO) 11.7 K/uL (1.8-7.7); NEUTROPHILS % (AUTO) 80.9 % (42.2-75.2); PLATELET COUNT (AUTO) 179 K/uL (140-450); RED CELL DISTRIBUTION WIDTH 16.6 % (11.6-13.7); WHITE BLOOD COUNT (AUTO) 14.5 K/uL (4.8-10.8)
[2019-01-05 07:03] LABS: CHOL/HDL RATIO 1.8 (1-4.5); MAGNESIUM 1.8 mg/dL (1.8-2.4); PHOSPHORUS 3.7 mg/dL (2.5-4.9)
[2019-01-05 07:04] LABS: CARBON DIOXIDE 18.6 mmol/L (21-32); CHLORIDE 110 mmol/L (98-107); CREATININE 0.9 mg/dL (0.6-1.3); GLUCOSE 124 mg/dL (74-106); POTASSIUM 3.6 mmol/L (3.5-5.1); SODIUM SERUM 140 mmol/L (136-145); UREA NITROGEN, BLOOD 26 mg/dL (7-18)
[2019-01-05 08:00] VITALS: BP 130/55
[2019-01-05 09:07] LABS: T4 (THYROXINE) 12.3 ug/dL (4.5-12.0)
[2019-01-05] MEDS: amLODIPine 5 MG TAB PO SCH (09:51)
[2019-01-05] MEDS: RIVAROXABAN 10 MG TAB PO SCH (09:52)
[2019-01-05] MEDS: METOPROLOL 25 MG TAB PO SCH ×2 (09:53→20:58)
[2019-01-05] MEDS: ISOSORBIDE MONONITRATE 30 MG TABER PO SCH (09:53)
[2019-01-05] MEDS: FERROUS SULFATE 325 MG TABEC PO SCH (09:53)
[2019-01-05] MEDS: DEXT 5% /NACL 0.9% 1,000 ML IV SCH ×2 (10:01→21:59)
[2019-01-05] MEDS ORDERED: NON-FORMULARY ITEM (Losartan/Hydrochlorothiazide (Losartan-Hctz 100-12.5 mg Tab) 1 TAB) PO SCH (10:50)
[2019-01-05] MEDS ORDERED: MELATONIN 3 MG TAB PO PRN (11:10)
[2019-01-05] MEDS ORDERED: BENZOCAINE 20% 57 GM CAN MC PRN (11:10)
[2019-01-05] MEDS ORDERED: PHENOL/MENTHOL 177 ML BTL MM PRN (11:55)
[2019-01-05 12:00] VITALS: BP 118/55
[2019-01-05] MEDS ORDERED: ASCORBIC ACID 500 MG TAB PO SCH (12:00)
[2019-01-05] MEDS ORDERED: PSYLLIUM 12.2 GM/PKT PO SCH (12:00)
[2019-01-05] MEDS: ALBUTEROL SULFATE/IPRATROPIU 3 ML SOL IH SCH ×2 (14:01→20:19)
[2019-01-05 16:00] VITALS: BP 92/50
[2019-01-05 20:00] VITALS: BP 104/55
[2019-01-05] MEDS ORDERED: LEVOFLOXACIN 500 MG/D5W PREMIX 100 ML IV SCH (20:30)
[2019-01-05] MEDS: metroNIDAZOLE 500 MG/NS PREMIX 100 ML IV SCH (22:30)
[2019-01-06] VITALS: BP 108/46
[2019-01-06 04:00] VITALS: BP 106/67
[2019-01-06] MEDS: DEXT 5% /NACL 0.9% 1,000 ML IV SCH (06:08)
[2019-01-06] MEDS: metroNIDAZOLE 500 MG/NS PREMIX 100 ML IV SCH ×2 (06:08→13:08)
[2019-01-06] MEDS: BLOOD GLUCOSE MONITORING 1 DEV DEV FS SCH ×4 (06:10→20:24)
[2019-01-06] MEDS: LEVOTHYROXINE 0.05 MG TAB PO SCH (06:17)
[2019-01-06] MEDS: ALBUTEROL SULFATE/IPRATROPIU 3 ML SOL IH SCH ×3 (06:55→20:28)
[2019-01-06 07:53] LABS: EOSINOPHILS # (AUTO) 0.1 K/uL (0-0.4); EOSINOPHILS % (AUTO) 1.1 % (0.0-4.0); HEMATOCRIT 26.1 % (36-48); HEMOGLOBIN 8.6 g/dL (12.0-16.0); LYMPHOCYTES # (AUTO) 1.1 K/uL (2.5-16.5); LYMPHOCYTES % (AUTO) 8.8 % (20.5-51.1); MEAN CORPUSCULAR HEMOGLOBIN 30 pg (27-31); MEAN CORPUSCULAR HGB CONC 33 g/dL (33-37); MEAN CORPUSCULAR VOLUME 91.7 fL (80-94); MONOCYTES # (AUTO) 0.8 K/uL (0.8-1.0); NEUTROPHILS # (AUTO) 10.6 K/uL (1.8-7.7); NEUTROPHILS % (AUTO) 84.1 % (42.2-75.2); PLATELET COUNT (AUTO) 199 K/uL (140-450); RED BLOOD CELL COUNT(AUTO) 2.84 MIL/uL (4.20-5.40); RED CELL DISTRIBUTION WIDTH 16.3 % (11.6-13.7); WHITE BLOOD COUNT (AUTO) 12.6 K/uL (4.8-10.8)
[2019-01-06 08:00] VITALS: BP 116/81
[2019-01-06 08:20] LABS: ANION GAP 14.9 (8-16); CARBON DIOXIDE 19.2 mmol/L (21-32); CHLORIDE 110 mmol/L (98-107); CREATININE 0.9 mg/dL (0.6-1.3); GLUCOSE 103 mg/dL (74-106); POTASSIUM 3.1 mmol/L (3.5-5.1); SODIUM SERUM 141 mmol/L (136-145); UREA NITROGEN, BLOOD 15 mg/dL (7-18)
[2019-01-06] MEDS ORDERED: LACTULOSE 20 GM/30 ML UDC PO SCH (09:00)
[2019-01-06 09:15] LABS: MAGNESIUM 1.8 mg/dL (1.8-2.4); PHOSPHORUS 2.7 mg/dL (2.5-4.9)
[2019-01-06] MEDS: RIVAROXABAN 10 MG TAB PO SCH (09:51)
[2019-01-06] MEDS: amLODIPine 5 MG TAB PO SCH (09:52)
[2019-01-06] MEDS: ASCORBIC ACID 500 MG TAB PO SCH (09:53)
[2019-01-06] MEDS: METOPROLOL 25 MG TAB PO SCH ×2 (09:56→20:25)
[2019-01-06] MEDS: ISOSORBIDE MONONITRATE 30 MG TABER PO SCH (09:56)
[2019-01-06] MEDS: FERROUS SULFATE 325 MG TABEC PO SCH (09:56)
[2019-01-06] MEDS: PSYLLIUM 12.2 GM/PKT PO SCH (09:57)
[2019-01-06] MEDS ORDERED: POTASSIUM CHLORIDE 10 MEQ TABER PO SCH (11:30)
[2019-01-06 12:00] VITALS: BP 149/68
[2019-01-06] MEDS ORDERED: HYDROCHLOROTHIAZIDE 25 MG TAB PO SCH (12:00)
[2019-01-06] MEDS ORDERED: LOSARTAN 50 MG TAB PO SCH (12:00)
[2019-01-06] MEDS ORDERED: POTASSIUM CHLORIDE 40 MEQ, LIDOCAINE MPF 1% - 5 mL VIAL 25 MG in NACL 0.9% 250 ML IV ONE (14:25)
[2019-01-06 16:00] VITALS: BP 105/58
[2019-01-06] MEDS ORDERED: VANCOMYCIN 750 MG in NACL 0.9% 250 ML IV SCH ×2 (16:00→17:00)
[2019-01-06] MEDS: LEVOFLOXACIN 250 MG/D5 PREMIX 50 ML IV SCH (20:25)
[2019-01-07] VITALS: BP 107/44
[2019-01-07] MEDS: LEVOTHYROXINE 0.025 MG TAB PO SCH (06:21)
[2019-01-07] MEDS: BLOOD GLUCOSE MONITORING 1 DEV DEV FS SCH ×4 (06:48→21:32)
[2019-01-07] MEDS: ALBUTEROL SULFATE/IPRATROPIU 3 ML SOL IH SCH ×3 (07:00→19:00)
[2019-01-07 07:57] LABS: BASOPHILS % (AUTO) 0.1 % (0.0-2.0); EOSINOPHILS # (AUTO) 0.1 K/uL (0-0.4); EOSINOPHILS % (AUTO) 2.3 % (0.0-4.0); HEMATOCRIT 24.8 % (36-48); HEMOGLOBIN 8.2 g/dL (12.0-16.0); LYMPHOCYTES # (AUTO) 1.3 K/uL (2.5-16.5); LYMPHOCYTES % (AUTO) 24.2 % (20.5-51.1); MEAN CORPUSCULAR HEMOGLOBIN 30 pg (27-31); MEAN CORPUSCULAR HGB CONC 33 g/dL (33-37); MONOCYTES # (AUTO) 0.5 K/uL (0.8-1.0); MONOCYTES % (AUTO) 9.9 % (1.7-9.3); NEUTROPHILS # (AUTO) 3.5 K/uL (1.8-7.7); NEUTROPHILS % (AUTO) 63.5 % (42.2-75.2); PLATELET COUNT (AUTO) 189 K/uL (140-450); RED BLOOD CELL COUNT(AUTO) 2.72 MIL/uL (4.20-5.40); RED CELL DISTRIBUTION WIDTH 16.6 % (11.6-13.7); WHITE BLOOD COUNT (AUTO) 5.6 K/uL (4.8-10.8)
[2019-01-07 08:00] VITALS: BP 129/70
[2019-01-07 08:25] LABS: SODIUM SERUM 140 mmol/L (136-145)
[2019-01-07 08:27] LABS: ANION GAP 12.5 (8-16); CARBON DIOXIDE 20.3 mmol/L (21-32); CHLORIDE 110 mmol/L (98-107); CREATININE 0.9 mg/dL (0.6-1.3); GLUCOSE 94 mg/dL (74-106); POTASSIUM 2.8 mmol/L (3.5-5.1); UREA NITROGEN, BLOOD 11 mg/dL (7-18)
[2019-01-07 08:28] LABS: MAGNESIUM 1.5 mg/dL (1.8-2.4); PHOSPHORUS 2.6 mg/dL (2.5-4.9)
[2019-01-07] MEDS ORDERED: POTASSIUM CHLORIDE 40 MEQ, LIDOCAINE MPF 1% - 5 mL VIAL 25 MG in NACL 0.9% 250 ML IV ONE (08:45)
[2019-01-07] MEDS ORDERED: POTASSIUM CHLORIDE 10 MEQ TABER PO SCH (08:45)
[2019-01-07] MEDS ORDERED: MAG SULF 2000 MG/WATER PREMIX 50 ML IV ONE (08:45)
[2019-01-07] MEDS: ISOSORBIDE MONONITRATE 30 MG TABER PO SCH (10:36)
[2019-01-07] MEDS: RIVAROXABAN 10 MG TAB PO SCH (10:36)
[2019-01-07] MEDS: LOSARTAN 50 MG TAB PO SCH (10:37)
[2019-01-07] MEDS: FERROUS SULFATE 325 MG TABEC PO SCH (10:37)
[2019-01-07] MEDS: ASCORBIC ACID 500 MG TAB PO SCH (10:37)
[2019-01-07] MEDS: amLODIPine 5 MG TAB PO SCH (10:38)
[2019-01-07] MEDS: PSYLLIUM 12.2 GM/PKT PO SCH (10:38)
[2019-01-07] MEDS: METOPROLOL 25 MG TAB PO SCH ×2 (10:38→21:41)
[2019-01-07] MEDS: HYDROCHLOROTHIAZIDE 25 MG TAB PO SCH (10:38)
[2019-01-07] MEDS: NACL 0.9% 1,000 ML IV SCH (15:25)
[2019-01-07 16:00] VITALS: BP 128/69
[2019-01-07] MEDS ORDERED: VANCOMYCIN HCL 750 MG in NACL 0.9% 250 ML IV SCH (17:00)
[2019-01-07 19:15] LABS: ANION GAP 10.9 (8-16); CARBON DIOXIDE 22.5 mmol/L (21-32); CHLORIDE 110 mmol/L (98-107); POTASSIUM 3.4 mmol/L (3.5-5.1); SODIUM SERUM 140 mmol/L (136-145)
[2019-01-07 19:16] LABS: CREATININE 0.9 mg/dL (0.6-1.3); GLUCOSE 145 mg/dL (74-106); UREA NITROGEN, BLOOD 11 mg/dL (7-18)
[2019-01-07 20:00] VITALS: BP 111/62
[2019-01-07] MEDS: LEVOFLOXACIN 250 MG/D5 PREMIX 50 ML IV SCH (21:42)
[2019-01-07] MEDS ORDERED: VANCOMYCIN PER PHARMACY MC PRN (22:50)
[2019-01-07] MEDS ORDERED: KCL 20 MEQ/WATER INJ PREMIX 100 ML IV SCH (23:00)
[2019-01-08] MEDS: ALBUTEROL SULFATE/IPRATROPIU 3 ML SOL IH SCH ×2 (06:50→13:00)
[2019-01-08 07:01] LABS: BASOPHILS % (AUTO) 0.2 % (0.0-2.0); EOSINOPHILS # (AUTO) 0.2 K/uL (0-0.4); EOSINOPHILS % (AUTO) 3.7 % (0.0-4.0); HEMATOCRIT 26.2 % (36-48); HEMOGLOBIN 8.8 g/dL (12.0-16.0); LYMPHOCYTES # (AUTO) 1.3 K/uL (2.5-16.5); LYMPHOCYTES % (AUTO) 25.8 % (20.5-51.1); MEAN CORPUSCULAR HEMOGLOBIN 30 pg (27-31); MEAN CORPUSCULAR HGB CONC 34 g/dL (33-37); MEAN CORPUSCULAR VOLUME 90.9 fL (80-94); MONOCYTES # (AUTO) 0.6 K/uL (0.8-1.0); MONOCYTES % (AUTO) 11.8 % (1.7-9.3); NEUTROPHILS % (AUTO) 58.5 % (42.2-75.2); PLATELET COUNT (AUTO) 206 K/uL (140-450); RED BLOOD CELL COUNT(AUTO) 2.88 MIL/uL (4.20-5.40); RED CELL DISTRIBUTION WIDTH 16.4 % (11.6-13.7); WHITE BLOOD COUNT (AUTO) 5.1 K/uL (4.8-10.8)
[2019-01-08] MEDS: LEVOTHYROXINE 0.025 MG TAB PO SCH (07:01)
[2019-01-08] MEDS: BLOOD GLUCOSE MONITORING 1 DEV DEV FS SCH ×3 (07:06→17:26)
[2019-01-08 07:17] LABS: MAGNESIUM 1.6 mg/dL (1.8-2.4); PHOSPHORUS 2.6 mg/dL (2.5-4.9)
[2019-01-08 08:00] VITALS: BP 123/65
[2019-01-08 08:19] LABS: ANION GAP 13.9 (8-16); CARBON DIOXIDE 20.2 mmol/L (21-32); CHLORIDE 109 mmol/L (98-107); GLUCOSE 103 mg/dL (74-106); POTASSIUM 3.1 mmol/L (3.5-5.1); SODIUM SERUM 140 mmol/L (136-145); UREA NITROGEN, BLOOD 10 mg/dL (7-18)
[2019-01-08 09:46] VITALS: BP 108/64
[2019-01-08] MEDS ORDERED: POTASSIUM CHLORIDE 40 MEQ, LIDOCAINE MPF 1% - 5 mL VIAL 25 MG in NACL 0.9% 250 ML IV ONE (10:05)
[2019-01-08] MEDS ORDERED: MAG SULF 2000 MG/WATER PREMIX 100 ML IV ONE (10:05)
[2019-01-08] MEDS ORDERED: METR500T1 PO (10:16)
[2019-01-08] MEDS ORDERED: VITC500 PO (10:16)
[2019-01-08] MEDS ORDERED: AZIT250T3 PO (10:16)
[2019-01-08] MEDS ORDERED: ASCO1CAP75 PO (10:16)
[2019-01-08] MEDS: ASCORBIC ACID 500 MG TAB PO SCH (10:29)
[2019-01-08] MEDS: PSYLLIUM 12.2 GM/PKT PO SCH (10:29)
[2019-01-08] MEDS: FERROUS SULFATE 325 MG TABEC PO SCH (10:29)
[2019-01-08] MEDS: HYDROCHLOROTHIAZIDE 25 MG TAB PO SCH (10:30)
[2019-01-08] MEDS: LOSARTAN 50 MG TAB PO SCH (10:30)
[2019-01-08] MEDS: METOPROLOL 25 MG TAB PO SCH (10:30)
[2019-01-08] MEDS: ISOSORBIDE MONONITRATE 30 MG TABER PO SCH (10:30)
[2019-01-08] MEDS: amLODIPine 5 MG TAB PO SCH (10:30)
[2019-01-08] MEDS: RIVAROXABAN 10 MG TAB PO SCH (10:31)
[2019-01-08] MEDS: NACL 0.9% 1,000 ML IV SCH (11:20)
[2019-01-08 16:00] VITALS: BP 113/64
[2019-01-08 16:14] LABS: ANION GAP 12.5 (8-16); CARBON DIOXIDE 21.6 mmol/L (21-32); CHLORIDE 107 mmol/L (98-107); GLUCOSE 127 mg/dL (74-106); POTASSIUM 4.1 mmol/L (3.5-5.1); SODIUM SERUM 137 mmol/L (136-145); UREA NITROGEN, BLOOD 10 mg/dL (7-18)
== END 2019-01-08 17:29 | disposition home or self-care (01) | DRG 871 ==
LOC: MED 11:24 → MTU 17:23 → MMU 01-05 04:33
PROVIDERS: ADMIT General Practice; ATTEND General Practice
DX: A41.9 Sepsis, unspecified organism (principal); J69.0 Pneumonitis due to inhalation of food and vomit; N17.0 Acute kidney failure with tubular necrosis; I26.99 Other pulmonary embolism without acute cor pulmonale; A09 Infectious gastroenteritis and colitis, unspecified; C25.9 Malignant neoplasm of pancreas, unspecified; C78.89 Secondary malignant neoplasm of other digestive organs; N13.6 Pyonephrosis; C78.02 Secondary malignant neoplasm of left lung; C78.01 Secondary malignant neoplasm of right lung; E44.0 Moderate protein-calorie malnutrition; R65.20 Severe sepsis without septic shock; D64.9 Anemia, unspecified; E03.9 Hypothyroidism, unspecified; E11.51 Type 2 diabetes mellitus with diabetic peripheral angiopathy without gangrene; I10 Essential (primary) hypertension; K76.0 Fatty (change of) liver, not elsewhere classified; M43.16 Spondylolisthesis, lumbar region; E87.6 Hypokalemia; E11.65 Type 2 diabetes mellitus with hyperglycemia; K64.4 Residual hemorrhoidal skin tags; K12.0 Recurrent oral aphthae; E86.0 Dehydration; M81.0 Age-related osteoporosis without current pathological fracture; E83.42 Hypomagnesemia; D63.8 Anemia in other chronic diseases classified elsewhere; K64.8 Other hemorrhoids; K57.30 Diverticulosis of large intestine without perforation or abscess without bleeding; Z68.28 Body mass index [BMI] 28.0-28.9, adult; Z90.49 Acquired absence of other specified parts of digestive tract; Z88.6 Allergy status to analgesic agent; Z79.899 Other long term (current) drug therapy
CPT/HCPCS: 36415; 71045; 76705; 76770; 80048; 80053; 80202; 81001; 82150; 82272; 82948; 83036; 83605; 83690; 83735; 83880; 84100; 84134; 84436; 84443; 84484; 85025; 85610; 85730; 87015; 87040; 87045; 87070; 87081; 87086; 87205; 92610; 93005; 93925; 93970; 94640; 96361; 96365; 96375; 97110; 97116; 97161-GP; 97530; 99285; J1815; J1956; J2001; J2270; J2405; J2543; J3370; J3475; J3480; J3490; J7030; J7042; J7060; J7620; Q0092

== ENCOUNTER 2019-04-05 12:52 | Emergency (ER) | payer OTHER ==
[~2019-04-05] VITALS: Ht 139.7 cm; Wt 54.4 kg
[~2019-04-05 12:52] MED LIST changes: +ASCO1CAP75 PO; +AZIT250T3 PO; -CHOL200072 PO; -DOCU-299 PO; -METO10TA98 PO; +METO25TE2 PO; +METR500T1 PO; -SIME80CT27 PO; -TRAM50TA1 PO
[2019-04-05 12:55] VITALS: BP 133/73
--- NOTE | 2019-04-05 13:06 | NUR ---
PT AMBULATED TO BED WITH GRANDDAUGHTER
--- NOTE | 2019-04-05 13:20 | NUR ---
PATIENT PRESENTS TO ED C/O LEFT RIB PAIN SINCE THIS MORNING. PATIENT WAS REACHING FOR SOMETHING ON THE SIDE WHEN SHE STRETCHED HER LEFT ARM AND HEARD A POPPING SOUND, FOLLOWED BY SHARP PAIN OF 8/10. PAIN AGGRAVATED BY BREATHING. +H/A, -N/V, FEVER. NO MEDS TAKEN. L ARM WITH FULL ROM. VSS; PATIENT POSITIONED FOR COMFORT; HOB ELEVATED; BEDRAILS UP X2; BED DOWN. ER MD MADE AWARE OF PT STATUS. PMH: HTN, PANCREATIC CA, HYPOTHYROID METOPROLOL, ISOSORBIDE, LASIX, AMLODIPINE, DEXAMETHASONE, ZOFRAN, LEVOTHYROXINE, XARELTO ALLERGIES: ASPIRIN
--- NOTE | 2019-04-05 13:51 | NUR ---
Patient taken to XRAY by tech.
--- NOTE | 2019-04-05 13:58 | NUR ---
Patient returned from XRAY.
[2019-04-05 14:22] LABS: BASOPHILS % (AUTO) 0.2 % (0.0-2.0); EOSINOPHILS % (AUTO) 0.6 % (0.0-4.0); HEMOGLOBIN 11.7 g/dL (12.0-16.0); LYMPHOCYTES # (AUTO) 1.4 K/uL (2.5-16.5); MEAN CORPUSCULAR HEMOGLOBIN 30 pg (27-31); MEAN CORPUSCULAR HGB CONC 33 g/dL (33-37); MEAN CORPUSCULAR VOLUME 91.3 fL (80-94); MONOCYTES # (AUTO) 0.5 K/uL (0.8-1.0); MONOCYTES % (AUTO) 6.2 % (1.7-9.3); NEUTROPHILS # (AUTO) 5.6 K/uL (1.8-7.7); PLATELET COUNT (AUTO) 191 K/uL (140-450); RED BLOOD CELL COUNT(AUTO) 3.94 MIL/uL (4.20-5.40); RED CELL DISTRIBUTION WIDTH 16.7 % (11.6-13.7); WHITE BLOOD COUNT (AUTO) 7.6 K/uL (4.8-10.8)
[2019-04-05 14:57] LABS: ANION GAP 15.4 (8-16); CARBON DIOXIDE 26.4 mmol/L (21-32); CHLORIDE 104 mmol/L (98-107); GLUCOSE 110 mg/dL (74-106); POTASSIUM 3.8 mmol/L (3.5-5.1); SODIUM SERUM 142 mmol/L (136-145); UREA NITROGEN, BLOOD 18 mg/dL (7-18)
[2019-04-05 15:06] LABS: ALBUMIN 3.5 g/dL (3.4-5.0); ASPARTATE AMINOTRANSFERASE 23 U/L (15-37); TOTAL BILIRUBIN 0.5 mg/dL (0.0-1.0)
[2019-04-05 15:50] VITALS: BP 108/65
== END 2019-04-05 15:50 | disposition home or self-care (01) ==
LOC: MED 12:52
DX: R07.89 Other chest pain (principal); I10 Essential (primary) hypertension; E03.9 Hypothyroidism, unspecified; Z79.899 Other long term (current) drug therapy; Z85.07 Personal history of malignant neoplasm of pancreas
CPT/HCPCS: 36415; 71046; 80053; 85025; 93005; 99284

== ENCOUNTER 2019-08-01 21:16 | Emergency (ER) | payer OTHER ==
[~2019-08-01] VITALS: Ht 149.9 cm; Wt 58.1 kg
[2019-08-01 21:34] VITALS: BP 132/80
--- NOTE | 2019-08-01 21:35 | NUR ---
PT AMBULATED TO BED 11 WITH STEADY GAIT.
--- NOTE | 2019-08-01 21:40 | NUR ---
UA COLLECTED AND GIVEN TO RAFTER CUTTING MACHINE OPERATOR.
--- NOTE | 2019-08-01 21:40 | NUR ---
PT BIB SELF FOR C/O RLQ ABD PAIN X1 DAY. PT AAO X4. PT STATES PAIN IS SHARP AND RADIATES TO R FLANK. ABD IS ROUND, SOFT, AND NON-TENDER TO TOUCH. PT STATES LAST BM WAS TODAY AND "NORMAL". BS PRESENT X 4. PT DENIES PAINFUL URINATION. AFEBRILE. RESPIRATIONS ARE EVEN AND UNLABORED. PT DENIES N/V/D. PT ON MONITOR. PT IS ALBANIAN SPEASKING AND LICENSED DISPENSING OPTICIAN PROVIDED. MEDHX: PANCRATIC CA, HERNIA, HTN ALLERGIES: ASPRIN
[2019-08-01] MEDS ORDERED: MORPHINE SULFATE 2 MG/ML SYR IVP ONE (22:05)
[2019-08-01] MEDS ORDERED: ONDANSETRON 4 MG/2 ML VIAL IVP ONE (22:05)
[2019-08-01] MEDS ORDERED: NACL 0.9% 500 ML IV ONE (22:05)
--- NOTE | 2019-08-01 22:25 | NUR ---
IV 20G PLACED IN L AC. IV IS PATENT. NO SWELLING OR C/O PAIN NOTED.
[2019-08-01 22:28] LABS: EOSINOPHILS % (AUTO) 0.5 % (0.0-4.0); HEMATOCRIT 35.4 % (36-48); HEMOGLOBIN 11.7 g/dL (12.0-16.0); LYMPHOCYTES # (AUTO) 1.8 K/uL (2.5-16.5); LYMPHOCYTES % (AUTO) 19.4 % (20.5-51.1); MEAN CORPUSCULAR HEMOGLOBIN 29 pg (27-31); MEAN CORPUSCULAR HGB CONC 33 g/dL (33-37); MEAN CORPUSCULAR VOLUME 87.9 fL (80-94); MONOCYTES # (AUTO) 0.6 K/uL (0.8-1.0); MONOCYTES % (AUTO) 6.3 % (1.7-9.3); NEUTROPHILS % (AUTO) 73.8 % (42.2-75.2); PLATELET COUNT (AUTO) 298 K/uL (140-450); RED BLOOD CELL COUNT(AUTO) 4.03 MIL/uL (4.20-5.40); RED CELL DISTRIBUTION WIDTH 17.2 % (11.6-13.7); WHITE BLOOD COUNT (AUTO) 9.5 K/uL (4.8-10.8)
[2019-08-01 22:32] LABS: APPEARANCE,URINE SL CLOUDY (CLEAR); BILIRUBIN,URINE NEGATIVE (NEGATIVE); BLOOD, URINE NEGATIVE (NEGATIVE); COLOR,URINE YELLOW (YELLOW); LEUKOCYTE ESTERASE ,URINE 2+ (NEGATIVE); NITRITE, URINE NEGATIVE (NEGATIVE); PH,URINE 6.5 (5.0-9.0); UGLUCOSE NEGATIVE (NEGATIVE)
--- NOTE | 2019-08-01 22:40 | NUR ---
PT HAD C/O 10/ RLQ PAIN. ERMD MADE AWARE AND MORPHINE 2 MG, ZOFRAN 4 MG, NS 0.9% 500ML GIVEN @ 1000ML/HR.
[2019-08-01 22:43] LABS: ALBUMIN 2.9 g/dL (3.4-5.0); ANION GAP 14.9 (8-16); ASPARTATE AMINOTRANSFERASE 26 U/L (15-37); CARBON DIOXIDE 23.5 mmol/L (21-32); CHLORIDE 99 mmol/L (98-107); GLUCOSE 129 mg/dL (74-106); POTASSIUM 3.4 mmol/L (3.5-5.1); SODIUM SERUM 134 mmol/L (136-145); TOTAL BILIRUBIN 0.4 mg/dL (0.0-1.0); UREA NITROGEN, BLOOD 20 mg/dL (7-18)
[2019-08-01 23:03] LABS: RBC,URINE 0-5 /HPF (0-5); WBC,URINE 20-60 /HPF (0-5)
[2019-08-01] MEDS ORDERED: traMADol 50 MG TAB PO ONE (23:50)
--- NOTE | 2019-08-01 23:50 | NUR ---
PT STATES PAIN HAS NOT IMPROVED. ERMD MADE AWARE AND GAVE NEW ORDERS.
[2019-08-02] MEDS ORDERED: cefTRIAXone 1,000 MG VIAL ONE (00:12)
--- NOTE | 2019-08-02 00:24 | NUR ---
PATIENT TAKEN TO CT IN [facility]
--- NOTE | 2019-08-02 01:31 | NUR ---
PT AMBULATED TO RESTROOM WITH STEADY GAIT.
--- NOTE | 2019-08-02 02:16 | NUR ---
PT RESPONDS TO VERBAL STIMULI. RESPIRATIONS ARE EVEN AND UNLABORED. VSS. PT STATES PAIN HAS DECREASED TO A 5/10 IN RLQ. "ITS TOLERABLE."
--- NOTE | 2019-08-02 02:25 | NUR ---
Note omrris in EDM - 08/02/19 at 0230 by [email or web address] IV 20G PLACED IN L AC. IV IS PATENT. NO SWELLING OR C/O PAIN NOTED.
[2019-08-02 03:30] VITALS: BP 121/68
--- NOTE | 2019-08-02 03:30 | NUR ---
Patient discharged with v/s stable. Written and verbal after care instructions given and explained. Patient alert, oriented and verbalized understanding of instructions. Ambulatory with steady gait. All questions addressed prior to discharge. ID band removed. Patient advised to follow up with PMD. Rx of TRAMADOL, CIPRO given. Patient educated on indication of medication including possible reaction and side effects. Opportunity to ask questions provided and answered.
== END 2019-08-02 03:30 | disposition home or self-care (01) ==
LOC: MED 21:16
DX: N39.0 Urinary tract infection, site not specified (principal); C25.9 Malignant neoplasm of pancreas, unspecified; I10 Essential (primary) hypertension; E03.9 Hypothyroidism, unspecified; Z88.6 Allergy status to analgesic agent; Z79.899 Other long term (current) drug therapy
CPT/HCPCS: 36415; 74177; 80053; 81001; 85025; 87086; 96361; 96365; 96375; 99285; J0696; J2270; J2405; J7030; J7060; Q9967

== ENCOUNTER 2019-08-16 12:46 | Emergency (ER) | payer OTHER ==
[~2019-08-16] VITALS: Ht 144.8 cm; Wt 53.5 kg
[2019-08-16 13:04] VITALS: BP 112/72
[2019-08-16] MEDS ORDERED: NACL 0.9% 1,000 ML IV ONE (13:25)
[2019-08-16 13:39] LABS: BASOPHILS % (AUTO) 0.1 % (0.0-2.0); EOSINOPHILS # (AUTO) 0.2 K/uL (0-0.4); EOSINOPHILS % (AUTO) 3.7 % (0.0-4.0); HEMATOCRIT 32.6 % (36-48); HEMOGLOBIN 10.6 g/dL (12.0-16.0); LYMPHOCYTES # (AUTO) 1.4 K/uL (2.5-16.5); LYMPHOCYTES % (AUTO) 26.2 % (20.5-51.1); MEAN CORPUSCULAR HEMOGLOBIN 28 pg (27-31); MEAN CORPUSCULAR HGB CONC 33 g/dL (33-37); MEAN CORPUSCULAR VOLUME 86.9 fL (80-94); MONOCYTES # (AUTO) 0.3 K/uL (0.8-1.0); MONOCYTES % (AUTO) 6.3 % (1.7-9.3); NEUTROPHILS # (AUTO) 3.4 K/uL (1.8-7.7); NEUTROPHILS % (AUTO) 63.7 % (42.2-75.2); PLATELET COUNT (AUTO) 292 K/uL (140-450); RED BLOOD CELL COUNT(AUTO) 3.74 MIL/uL (4.20-5.40); RED CELL DISTRIBUTION WIDTH 17.2 % (11.6-13.7); WHITE BLOOD COUNT (AUTO) 5.3 K/uL (4.8-10.8)
[2019-08-16 14:10] LABS: ALBUMIN 2.9 g/dL (3.4-5.0); ASPARTATE AMINOTRANSFERASE 20 U/L (15-37); CARBON DIOXIDE 25.2 mmol/L (21-32); CHLORIDE 103 mmol/L (98-107); CREATININE 1.2 mg/dL (0.6-1.3); GLUCOSE 121 mg/dL (74-106); LIPASE 91 U/L (73-393); POTASSIUM 3.2 mmol/L (3.5-5.1); SODIUM SERUM 139 mmol/L (136-145); TOTAL BILIRUBIN 0.4 mg/dL (0.0-1.0); UREA NITROGEN, BLOOD 15 mg/dL (7-18)
[2019-08-16 14:51] LABS: APPEARANCE,URINE SL CLOUDY (CLEAR); BILIRUBIN,URINE NEGATIVE (NEGATIVE); BLOOD, URINE NEGATIVE (NEGATIVE); COLOR,URINE YELLOW (YELLOW); LEUKOCYTE ESTERASE ,URINE NEGATIVE (NEGATIVE); NITRITE, URINE NEGATIVE (NEGATIVE); UGLUCOSE NEGATIVE (NEGATIVE)
[2019-08-16 16:45] VITALS: BP 128/80
== END 2019-08-16 16:45 | disposition home or self-care (01) ==
LOC: MED 12:46
DX: I10 Essential (primary) hypertension (principal); R10.9 Unspecified abdominal pain; Z85.07 Personal history of malignant neoplasm of pancreas; Z88.6 Allergy status to analgesic agent; Z79.899 Other long term (current) drug therapy
CPT/HCPCS: 36415; 74176; 80053; 81003; 83690; 85025; 99284; J7030

== ENCOUNTER 2019-08-28 03:25 | Inpatient (IN) | payer OTHER ==
[~2019-08-28] VITALS: Ht 152.4 cm; Wt 54.4 kg
[2019-08-28 03:36] VITALS: BP 172/107
--- NOTE | 2019-08-28 03:40 | NUR ---
83 YEAR OLD FEMALE COMPLAINS OF 10/10 ABDOMINAL PAIN X 1 DAY. PATIENT BOWEL SOUNDS ACTIVE X4, RUQ TENDER, SOFT, NONDISTENDED. BP 172/107 PATIENT DENIES CHEST PAIN, HEADACHE, OR ANY OTHER COMPLAINTS. NO DIARRHEA. PATIENT AOX4, BREATHING EVEN AND UNLABORED, SKIN WARM AND DRY. BED IN LOWEST POSITION, LOCKED, BED RAIL UPX1. PATIENT STATES SHE IS UNDERGOING TREATMENT FOR PANCREATIC CANCER. PMH - HTN, PANCREATIOC CANCER ALLERGIES - ASA
--- NOTE | 2019-08-28 03:40 | NUR ---
PATIENT MALAWIAN SPEAKING, TRANSLATION USED
--- NOTE | 2019-08-28 03:45 | NUR ---
PT AMBUALTED TO BED 11 WITH STEADY GAIT. PT NEGATIVE FOR COVID SCREEN. PT WEARING MASK.
[2019-08-28] MEDS ORDERED: NACL 0.9% 500 ML IV SCH (03:46)
--- NOTE | 2019-08-28 03:51 | NUR ---
PT AMBUALTED TO RESTROOM WITH STEADY GAIT. UA COLLECTED AND GIVEN TO ROLLER CHECKER.
--- NOTE | 2019-08-28 03:51 | NUR ---
LAB AT BEDSIDE.
--- NOTE | 2019-08-28 03:53 | NUR ---
Dr. Saenz examining patient.
[2019-08-28] MEDS ORDERED: ONDANSETRON 4 MG/2 ML VIAL IVP ONE (04:00)
[2019-08-28] MEDS ORDERED: MORPHINE SULFATE 2 MG/ML SYR IVP ONE ×3 (04:00→05:55)
[2019-08-28 04:12] LABS: APPEARANCE,URINE CLEAR (CLEAR); BILIRUBIN,URINE NEGATIVE (NEGATIVE); BLOOD, URINE NEGATIVE (NEGATIVE); COLOR,URINE YELLOW (YELLOW); LEUKOCYTE ESTERASE ,URINE NEGATIVE (NEGATIVE); NITRITE, URINE NEGATIVE (NEGATIVE); PH,URINE 8.5 (5.0-9.0); UGLUCOSE TRACE (NEGATIVE)
[2019-08-28 04:12] LABS: BASOPHILS % (AUTO) 0.2 % (0.0-2.0); EOSINOPHILS # (AUTO) 0.3 K/uL (0-0.4); EOSINOPHILS % (AUTO) 3.7 % (0.0-4.0); HEMATOCRIT 32.7 % (36-48); HEMOGLOBIN 10.5 g/dL (12.0-16.0); LYMPHOCYTES # (AUTO) 1.7 K/uL (2.5-16.5); MEAN CORPUSCULAR HEMOGLOBIN 28 pg (27-31); MEAN CORPUSCULAR HGB CONC 32 g/dL (33-37); MEAN CORPUSCULAR VOLUME 86.7 fL (80-94); MONOCYTES # (AUTO) 0.3 K/uL (0.8-1.0); NEUTROPHILS # (AUTO) 5.2 K/uL (1.8-7.7); NEUTROPHILS % (AUTO) 69.1 % (42.2-75.2); PLATELET COUNT (AUTO) 240 K/uL (140-450); RED BLOOD CELL COUNT(AUTO) 3.77 MIL/uL (4.20-5.40); RED CELL DISTRIBUTION WIDTH 17.3 % (11.6-13.7); WHITE BLOOD COUNT (AUTO) 7.5 K/uL (4.8-10.8)
--- NOTE | 2019-08-28 04:17 | NUR ---
XR AT BEDSIDE.
--- NOTE | 2019-08-28 04:23 | NUR ---
BP 171/95, ERMD MADE AWARE
[2019-08-28 04:24] LABS: ANION GAP 14.1 (8-16); ASPARTATE AMINOTRANSFERASE 19 U/L (15-37); CARBON DIOXIDE 25.2 mmol/L (21-32); CHLORIDE 100 mmol/L (98-107); GLUCOSE 141 mg/dL (74-106); POTASSIUM 3.3 mmol/L (3.5-5.1); SODIUM SERUM 136 mmol/L (136-145); TOTAL BILIRUBIN 0.5 mg/dL (0.0-1.0); UREA NITROGEN, BLOOD 20 mg/dL (7-18)
[2019-08-28 04:31] LABS: PROTHROMBIN TIME 10.8 secs (10.8-13.4)
--- NOTE | 2019-08-28 04:32 | NUR ---
PER PATIENT SHE STATES SHE TAKES NO MEDICATIONS AT HOME, TRANSLATION USED.
[2019-08-28 04:39] LABS: RBC,URINE 0-5 /HPF (0-5)
--- NOTE | 2019-08-28 04:48 | NUR ---
PT TRANSFERRED TO CT VIA [facility].
[2019-08-28] MEDS ORDERED: cefTRIAXone 1,000 MG VIAL ONE (04:51)
--- NOTE | 2019-08-28 05:05 | NUR ---
PT RETURN FROM CT
--- NOTE | 2019-08-28 05:10 | NUR ---
PT BP 194/93, ERMD MADE AWARE
[2019-08-28] MEDS ORDERED: hydrALAZINE 20 MG/ML VIAL IVP ONE (05:15)
--- NOTE | 2019-08-28 05:53 | NUR ---
BP 143/79. PT STATES STILL ALOT OF PAIN. TRD MADE AWARE
--- NOTE | 2019-08-28 06:09 | NUR ---
PT STATES STILL ALOT OF PAIN, ERMD MADE AWARE
[2019-08-28] MEDS ORDERED: fentaNYL 0.05 MG/ML VIAL IVP ONE (06:10)
[2019-08-28] MEDS: DEXT 5% /NACL 0.9% 1,000 ML IV SCH ×2 (06:23→17:30)
[2019-08-28] MEDS ORDERED: ONDANSETRON 4 MG/2 ML VIAL IM/IVP PRN (06:25)
[2019-08-28] MEDS ORDERED: HYDROcodone/APAP 5/325 MG 1 TAB TAB PO PRN (06:25)
[2019-08-28] MEDS ORDERED: ACETAMINOPHEN 325 MG TAB PO PRN (06:25)
[2019-08-28] MEDS ORDERED: LORazepam 2 MG/ML VIAL IM/IVP PRN (06:25)
[2019-08-28] MEDS ORDERED: MORPHINE SULFATE 2 MG/ML SYR IVP PRN ×2 (06:25→08:30)
[2019-08-28] MEDS ORDERED: DOCUSATE SODIUM 100 MG GELCAP PO PRN (06:25)
[2019-08-28] MEDS ORDERED: hydrALAZINE 20 MG/ML VIAL IVP PRN (06:35)
--- NOTE | 2019-08-28 06:35 | NUR ---
Patient will be admitted to care of DR Bloom. Admited to Tele. Will go to room 121B. Belongings list completed. Report to Bere GILBERT.
--- NOTE | 2019-08-28 06:35 | NUR ---
RECEIVED PT FROM ED,VIA ZEESHAN, PT AAO X 4 WITH IV ON THE LEFT AC G 20, SLAINE LOCK, PATENT. VITAL SIGNS TAKEN, MRSA SWAB DONE, WILL ENDORSE TO NEXT SHIFT FOR CONTINUITY OF CARE.
--- NOTE | 2019-08-28 06:57 | NUR ---
INITIAL VS TAKEN : 151/81; 100 HIGH; 98.4, 100% O2 SAT 22 RR PAIN 10/10. PER ENDORSEMENT OF ED WAS GIVEN SUBLIMAZE 20 MINS AGO.
--- NOTE | 2019-08-28 07:18 | NUR ---
RECEIVED PATIENT FROM JUNIOR HIGH MATH TEACHER NURSE FOR CONTINUITY OF CARE. PATIENT IS AAOX4. AMHARIC SPEAKING. NO SIGNS OF DISTRESS NOTED. RESPIRATIONS EVEN AND UNLABORED, ROOM AIR. HAS SURGICAL MASK ON. VISIBLE CHEST RISE NOTED. ON TELE MONITORING. ABDOMEN SOFT AND NONTENDER. SKIN WARM, DRY, AND INTACT. IV SITE LEFT AC GAUGE 20, SALINE LOCK IV IS FLUSHING WELL. NO SIGNS OF INFILTRATION. HAS RIGHT CHEST PORTACATH FOR CHEMOTHERAPY. LAST CHEMO WAS 08/21/2019. PATIENT IS AMBULATORY. CONTINENT. NPO EXCEPT MEDICATIONS. STANDARD ISOLATION. BED IN LOW POSITION. CALL LIGHT IS WITHIN REACH. WILL CONTINUE TO MONITOR.
--- NOTE | 2019-08-28 07:45 | NUR ---
HANG D5NS AT A RATE OF 90 ML/HR. IV FLUSHED WELL. WILL CONTINUE TO MONITOI
--- NOTE | 2019-08-28 08:03 | NUR ---
GIVEN MORPHINE FOR 8/10 ABDOMINAL PAIN. EXPLAINED MEDICATION. VS CHECKED PRIOR TO ADMINISTRATION: BP 151/87, HR 98, 02SAT 100%, RESP 18, TEMP: 97.9. WILL REASSESS FOR PAIN.
[2019-08-28] MEDS ORDERED: MEDICATION REC. PHARMACY CONS. 1 EA MISC MC PRN (08:25)
[2019-08-28 08:59] LABS: FREE T4 (FREE THYROXINE) 1.23 ng/dL (0.76-1.46); MAGNESIUM 1.5 mg/dL (1.8-2.4); PHOSPHORUS 2.1 mg/dL (2.5-4.9); THYROID STIMULATING HORMONE 4.87 uIU/mL (0.34-3.74)
--- NOTE | 2019-08-28 09:03 | NUR ---
PER DR. JONAS, GIVE ANOTHER DOSE OF MORPHINE 2MG AND IF PAIN IS STILL THE LEVEL OF 4-5, GIVE NORCO. WILL CARRY OUT ORDER
--- NOTE | 2019-08-28 09:08 | NUR ---
GIVEN MORPHINE VIA IVP. EXPLAINED MEDICATION. PATIENT VERBALIZED UNDERSTANDING. BED IN LOW POSITION. WILL CONTINUE TO MONITOR.
--- NOTE | 2019-08-28 09:22 | NUR ---
DC PLANN[age] YRS OLD FEMALE PATIENT WAS ADMITTED FROM HOME WITH A DX OF ABDOMINAL PAIN, MOD-SEVER HYDRONEPHROSIS, PANCREATIC CANCER. PT HAS A HX OF PANCREATIC CANCER AND ON CHEMOTHERAPY AND HTN. CXRAY NO ACUTE PULMONARY DISEASE , UA (+) FOR UTI ,CT ABD/PELVIS PERSISTANT FOCAL THICKENING OF THE POSTERIOR INFERIOR GASTRIC WALL F/U TO EXCLUDE A NEOPLASM. ADMINISTERED MORPHINE 3MG IV AND FENTANYL IV FOR SEVER PAIN. CONSULTED WITH GI, NEPHRO . CM TO FOLLOW Addendum: 08/29/19 at 1513 by Lisa Kirkland CM DC PLANNING: SEEN BY UROLOGIST S/P URETERAL STENT PLACEMENT , DISCUSSED WITH THE PATIENT REGARDING [facility] MANAGEMENT OF HER URETERAL STRICTURE ANTICIPATED EVERY 3 MONTH STENT EXCHANGE. DC PLAN OUT PATIENT FOLLOW UP INFORMATION PROVIDED TO PATIENT/ FAMILY. CONTINUE IV ABX ROCEPHIN . CM TO FOLLOW
--- NOTE | 2019-08-28 09:51 | NUR ---
BLADDER SCAN: [address]. WILL INFORM [address]. JONAS.
[2019-08-28] MEDS ORDERED: MAG SULF 2000 MG/WATER PREMIX 50 ML IV SCH (10:00)
--- NOTE | 2019-08-28 10:11 | NUR ---
GIVEN BCNX RIDER FOR MAGNESIUM LEVEL 1.5. GIVEN NORCO FOR ABDOMINAL PAIN EXPLAINED MEDICATIONS. BED IN LOW POSITION. CALL LIGHT IS WITHIN REACH. WILL CONTINUE TO MONITOR
[2019-08-28] MEDS ORDERED: ZOLP5TAB1 PO (10:52)
[2019-08-28] MEDS ORDERED: METO25TA14 PO (10:52)
[2019-08-28] MEDS ORDERED: ISOS30TA23 PO (10:52)
[2019-08-28] MEDS ORDERED: BEN10 PO (10:52)
[2019-08-28] MEDS ORDERED: AMLO10TA PO (10:52)
[2019-08-28] MEDS ORDERED: DICYCLOMINE 10 MG CAP PO PRN (11:10)
--- NOTE | 2019-08-28 11:18 | NUR ---
PAIN REASSESSED. PATIENT STATED 2/10 ABDOMINAL PAIN THAT IS TOLERABLE. WILL CONTINUE TO MONITOR.
--- NOTE | 2019-08-28 11:37 | NUR ---
Carry In Worker Note: Basic Screen: Yes High Risk DC Screen Yes Name: ABDIRAHMAN DU Home Relationship: GRANDDAUGHTER Pre-Admission Living Arrangements: Lives with Other Prior ADL Independent Current Home Health Name/Tel: YES (GRANDDAUGHTER WAS UNSURE FROM WHERE) Current /02 Name/Tel: [facility], CANE Current Hospice Name/Tel: N/A Current Dialysis Name/Tel: N/A Healthcare Decision Maker: Patient Advance Directive No Physician Orders for Life Sustaining Treatment Form No Patient/Family Have Educational Needs No Discipline: Case Mgt/Social Svcs Tentative Discharge Plan/Destination: No Needs Identified Will require assistance post discharge: No Referred to Motor Equipment Commanding Officer: No Tentative Discharge Plan Summary: Patient is an 83-year-old female admitted for abdominal pain. Patient has PMHX of HTN and metastatic pancreatic cancer. Patient was admitted from home where she lives with granddaughter and daughter. SW contacted patient's granddaughter Abdirahman Du to verify demographics [phone]. Per Abdirahman, patient is independent with some ADLs. Abdirahman stated that patient's daughter, Emy Du assists with bathing, preparing meals, cooking, and cleaning. Abdirahman stated that patient is independent with ambulating with the use of her walker/cane and other ADLs. SW inquired about who assists patient with caregiving primarily, and Abdirahman stated that she and her mother, Emy assist primarily as caregivers. Abdirahman reported no history of mental health and no history of substance abuse. Tentative discharge plan is for patient to return home. No further needs identified. Signature: LUAN Hurley Date: Aug 28, 2019 Time: 11:37
--- NOTE | 2019-08-28 11:43 | NUR ---
BLADDER SCAN: [address] JONAS.
--- NOTE | 2019-08-28 11:57 | NUR ---
C/O NAUSEA AND VOMITING. ADMINISTERED ZOFRAN FOR N/V. EXPLAINED MEDICATION. BED IN LOW POSITION. CALL LIGHT IS WITHIN REACH. WILL CONTINUE TO MONITOR.
[2019-08-28 12:00] VITALS: BP 159/86
[2019-08-28] MEDS ORDERED: HYDROcodone/APAP 10/325 MG 1 TAB TAB PO PRN (12:00)
--- NOTE | 2019-08-28 12:05 | NUR ---
CHECKED VITAL SIGNS. GIVEN BENTYL FOR ABDOMINAL PAIN. EXPLAINED MEDICATION. WILL REASSESS FOR PAIN.
[2019-08-28] MEDS: ISOSORBIDE DINITRATE 10 MG TAB PO SCH ×2 (12:12→21:03)
--- NOTE | 2019-08-28 12:12 | NUR ---
GIVEN ISORDIL ORDERED BY MD FOR BP 159/86, HR 91, O2SAT 99%, RESP 20, TEMP 98.3.
[2019-08-28] MEDS ORDERED: POTASSIUM CHLORIDE 40 MEQ, LIDOCAINE MPF 1% 25 MG in NACL 0.9% 250 ML IV SCH (13:00)
--- NOTE | 2019-08-28 13:06 | NUR ---
HANG K RIDER VIA IVF FOR POTASSIUM LEVEL 3.3 PER ORDER. EXPLAINED MEDICATION. PATIENT VERBALIZED UNDERSTANDING. BED IN LOW POSITION. CALL LIGHT IS WITHIN REACH. WILL CONTINUE TO MONITOR.
[2019-08-28] MEDS: MORPHINE SULFATE 2 MG/ML SYR IVP PRN ×2 (13:18→18:15)
--- NOTE | 2019-08-28 13:18 | NUR ---
GIVEN MORPHINE VIA IVP. EXPLAINED MEDICATION. RESPIRATIONS 17, UNLABORED. BED IN LOW POSITION. CALL LIGHT IS WITHIN REACH. WILL CONTINUE TO MONITOR.
--- NOTE | 2019-08-28 13:43 | NUR ---
DR. PARIKH MADE ROUNDS. SPOKE WITH THE PATIENTS ABOUT OPTIONS TO DRAIN URINE FROM HER RIGHT KIDNEY
--- NOTE | 2019-08-28 14:02 | NUR ---
PATIENT SIGNED CONSENT FOR CYSTOSCOPY RIGHT URETERAL STENT PLACEMENT. [employer] CHRISTIANO #[id number] WAS USED FOR KHMER TRANSLATION.
--- NOTE | 2019-08-28 15:03 | NUR ---
FNS CONSULT HAS BEEN RECEIVED. RD WILL COMPLETE A NUTRITION ASSESSMENT FOR PATIENT WITHIN 1-2 DAYS OF ADMISSION. 08/28/19-08/29/[address]
--- NOTE | 2019-08-28 15:03 | NUR ---
PATIENT IS SLEEPING AT THIS TIME. NO SIGNS OF DISTRESS NOTED. BED IN LOW POSITION. CALL LIGHT IS WITHIN REACH. WILL CONTINUE TO MONITOR
[2019-08-28] MEDS ORDERED: BUPIVACAINE-MPF 0.25% 30 ML VIAL INJ ONE (15:32)
[2019-08-28] MEDS ORDERED: LIDOCAINE 1% 500 MG/50 ML VIAL ONE (15:32)
[2019-08-28 16:00] VITALS: BP 145/83
--- NOTE | 2019-08-28 17:03 | NUR ---
PATIENT IS SLEEPING AT THIS TIME. NO SIGNS OF DISTRESS NOTED. WILL CONTINUE TO MONITOR
--- NOTE | 2019-08-28 18:15 | NUR ---
GIVEN MORPHINE FOR PAIN 8 ABDOMINAL PAIN. EXPLAINED MEDICATION. PATIENT VERBALIZED UNDERSTANDING. BED IN LOW POSITION. CALL LIGHT IS WITHIN REACH. WILL CONTINUE TO MONITOR.
--- NOTE | 2019-08-28 18:38 | NUR ---
OFF UNIT TO OR FOR CYSTOSCOPY RIGHT URETERAL STENT PLACEMENT
--- NOTE | 2019-08-28 19:10 | NUR ---
ENDORSED PATIENT TO THE HOUSEKEEPING ASSISTANT NURSE FOR CONTINUITY OF CARE. PATIENT IS STILL IN THE OR FOR SURGERY.
[2019-08-28] MEDS ORDERED: PROPOFOL 200 MG/20 ML VIAL IV ONE (19:11)
[2019-08-28] MEDS ORDERED: ONDANSETRON 4 MG/2 ML VIAL ONE (19:11)
[2019-08-28] MEDS ORDERED: DESFLURANE 240 ML BTL INH ONE (19:11)
[2019-08-28] MEDS ORDERED: DEXAMETHASONE 4 MG/ML VIAL ONE (19:11)
[2019-08-28] MEDS ORDERED: fentaNYL 0.05 MG/ML VIAL ONE (19:11)
--- NOTE | 2019-08-28 19:11 | NUR ---
RECEIVE REPORT FRO DAY SHIFT NURSE. PT OFF THE UNIT FOR SURGERY. WILL ASSESS WHEN PT COMES BACK TO UNIT.
[2019-08-28] MEDS ORDERED: ONDANSETRON 4 MG/2 ML VIAL IVP PRN (19:40)
[2019-08-28 20:00] VITALS: BP 144/82
--- NOTE | 2019-08-28 20:50 | NUR ---
PT CAME BACK FROM OR. NO SOB OR ACUTE RESPIRATORY DISTRESS NOTED. BREATHING EVEN AND UNLABORED. SKIN WARM AND DRY TO TOUCH. IV SITE ON LAC 20G, PATENT, INTACT, AND ASYMPTOMATIC. 2/10 PAIN NOTED. TOLERABLE PAIN. BED IN LOW POSITION, CALL LIGHT WITHIN REACH. WILL CONTINUE TO MONITOR.
[2019-08-28] MEDS: METOPROLOL 25 MG TAB PO SCH (21:03)
[2019-08-28] MEDS: ZOLPIDEM 5 MG TAB PO SCH (21:03)
--- NOTE | 2019-08-28 21:03 | NUR ---
GIVEN ZOLPIDEM, ISORDIL, METOPROLOL MD ORDERED. PT TOLERATED WELL.
--- NOTE | 2019-08-28 21:20 | NUR ---
VS CHECKED, WITHIN NORMAL RANGE. WILL CONTINUE TO MONITOR.
--- NOTE | 2019-08-28 21:35 | NUR ---
VS CHECKED, WITHIN NORMAL RANGE. WILL CONTINUE TO MONITOR.
--- NOTE | 2019-08-28 22:05 | NUR ---
VS CHECKED, WITHIN NORMAL RANGE. WILL CONTINUE TO MONITOR.
[2019-08-29] VITALS: BP 114/65
--- NOTE | 2019-08-29 00:05 | NUR ---
VS WITHIN NORMAL RANGE. WILL CONTINUE TO MONITOR.
--- NOTE | 2019-08-29 02:19 | NUR ---
PT SLEEPING IN BED COMFORTABLY. NO ACUTE DISTRESS NOTED.
[2019-08-29 04:00] VITALS: BP 127/85
[2019-08-29] MEDS: DEXT 5% /NACL 0.9% 1,000 ML IV SCH ×2 (04:32→15:44)
[2019-08-29] MEDS: ISOSORBIDE DINITRATE 10 MG TAB PO SCH ×3 (04:32→20:17)
--- NOTE | 2019-08-29 04:33 | NUR ---
GIVEN ROCEPHIN AND ISORDIL MD ORDERED. PT TOLERATED WELL.
--- NOTE | 2019-08-29 05:36 | NUR ---
PT SLEEPING IN BED COMFORTABLY. NO ACUTE DISTRESS NOTED.
[2019-08-29 06:16] LABS: BASOPHILS % (AUTO) 0.1 % (0.0-2.0); EOSINOPHILS % (AUTO) 0.1 % (0.0-4.0); HEMATOCRIT 27.1 % (36-48); HEMOGLOBIN 8.9 g/dL (12.0-16.0); LYMPHOCYTES # (AUTO) 0.6 K/uL (2.5-16.5); LYMPHOCYTES % (AUTO) 11.3 % (20.5-51.1); MEAN CORPUSCULAR HEMOGLOBIN 29 pg (27-31); MEAN CORPUSCULAR HGB CONC 33 g/dL (33-37); MEAN CORPUSCULAR VOLUME 87.1 fL (80-94); MONOCYTES # (AUTO) 0.1 K/uL (0.8-1.0); NEUTROPHILS # (AUTO) 4.7 K/uL (1.8-7.7); NEUTROPHILS % (AUTO) 86.5 % (42.2-75.2); PLATELET COUNT (AUTO) 212 K/uL (140-450); RED BLOOD CELL COUNT(AUTO) 3.11 MIL/uL (4.20-5.40); WHITE BLOOD COUNT (AUTO) 5.5 K/uL (4.8-10.8)
[2019-08-29 06:32] LABS: ANION GAP 12.4 (8-16); CARBON DIOXIDE 23.2 mmol/L (21-32); CHLORIDE 101 mmol/L (98-107); CREATININE 1.2 mg/dL (0.6-1.3); GLUCOSE 200 mg/dL (74-106); POTASSIUM 4.6 mmol/L (3.5-5.1); SODIUM SERUM 132 mmol/L (136-145); UREA NITROGEN, BLOOD 17 mg/dL (7-18)
[2019-08-29 06:44] LABS: MAGNESIUM 1.7 mg/dL (1.8-2.4); PHOSPHORUS 2.9 mg/dL (2.5-4.9)
--- NOTE | 2019-08-29 06:56 | NUR ---
PT IN STABLE CONDITION. WILL ENDORSE PT TO DAY SHIFT NURSEGILMER FOR CONTINUOUS CARE.
--- NOTE | 2019-08-29 07:10 | NUR ---
RECEIVED REPORT FROM SPANISH PROFESSOR NURSE. PT CURRENTLY LAYING IN BED, PT IS ALERT, AWAKE, AND DOES NOT COMPLAIN OF ANY PAIN AT THIS MOMENT. RESPIRATIONS ARE EVEN AND UNLABORED ON ROOM AIR WITH NO SIGNS OF DISTRESS. SKIN IS INTACT WITH IV SITE ASYMPTOMATIC PATENT, IN RIGHT AC, FLUIDS INFUSING PER ORDER AND TOLERATING WELL. SAFETY MEASURES IN PLACE AND WILL CONTINUE TO MONITOR.
[2019-08-29 08:00] VITALS: BP 130/74
[2019-08-29] MEDS ORDERED: MAG SULF 2000 MG/WATER PREMIX 50 ML IV SCH (09:00)
[2019-08-29] MEDS ORDERED: SODIUM PHOS / POTASSIUM PHOS 1 PKT PDR PO SCH (09:00)
[2019-08-29] MEDS: amLODIPine 5 MG TAB PO SCH (09:34)
[2019-08-29] MEDS ORDERED: CRUSHER, PILL MC ONE (09:48)
[2019-08-29] MEDS: METOPROLOL 25 MG TAB PO SCH ×2 (09:51→20:17)
--- NOTE | 2019-08-29 09:54 | NUR ---
ADMINISTERED MEDICATIONS PER ORDER AND TOLERATED WELL. NO COMPLAINTS OF PAIN AT THIS TIME AND NO SIGNS OF DISTRESS NOTED. SAFETY MEASURES IN PLACE AND WILL CONTINUE TO MONITOR.
--- NOTE | 2019-08-29 11:57 | NUR ---
* ST NOTE * Pt seen at bedside. Pt alert, cooperative and engaged throughout session, reporting no c/o pain at this time. Bedside dysphagia and oral mechanism exams completed. See evaluation report for further details. Pt also alert and oriented x4 at this time. Pt presenting with adequate sensation on both cheecks, forehead & chin at this time, w/gag reflex WFL upon stimulation of posterior lingua as well as bilateral faucial pillars. Pt presenting with productive and strong volitional throat clear and cough as well. Pt tolerating 8/8 successive sips of thin liquid apple juice via a straw w/o overt s/s of aspiration. Pt also tolerating 5/5 po trials of regular solid saltine crackers w/o overt s/s of aspiration. Pt reporting no difficulty masticating or swallowing trialed textures. Pt and nsg education completed re: aspiration precautions and safe swallow compensatory strategies pt and caregivers could utilize to aid pt w/swallow function, w/pt and nsg Jowie agreeable. It is thus recommended pt's PO diet consistency be modified to mechanical soft textures w/thin liquids for all meals w/aspiration precautions in place. No further ST follow up recommended at this time. Pt and caregiver/Charge Nurse Jowie education completed re: results of evaluation; benefits of abiding by aspiration precautions and safe swallow guidelines; and prognosis for improvement; with pt and caregiver/Charge Nurse Jowie verbalizing understanding and agreement w/clinician's recommendations. Recommend: - PO DIET CONSISTENCY OF MECHANICAL SOFT-CHOPPED TEXTURES W/THIN LIQUIDS FOR ALL MEALS - WHOLE PILL PO MEDICATION ADMINISTRATION OKAY - MAINTAIN ASPIRATION PRECAUTIONS DURING PT'S PO INTAKE - Pt may require setup assistance w/tray or cueing - CUE/REMIND PT TO SIT UP AT 80-90 DEGREE ANGLE DURING PO INTAKE; TAKE SMALL BITES/SIPS; EAT/DRINK SLOWLY; ALTERNATE BTWN SOLIDS & LIQUIDS No further ST follow up recommended at this time. NOMS Level 2 Time In/Out 11:20 - 11: 50
--- NOTE | 2019-08-29 11:57 | NUR ---
PT NEEDED ASSISTANCE GETTING OUT OF BED TO USE THE RESTROOM. PT GAIT IS STEADY AND DOES NOT COMPLAIN OF ANY PAIN AT THIS TIME SAFETY MEASURES IN PLACE AND WILL CONTINUE TO MONITOR.
[2019-08-29 12:00] VITALS: BP 144/75
--- NOTE | 2019-08-29 13:58 | NUR ---
ADMINISTERED MEDICATIONS PER ORDER AND TOLERATED WELL. PT JUST WET TO THE RESTROOM AND GAIT WAS STEADY. PT STATES THAT SHE FEELS PAIN WHEN URINATING BUT GOES AWAY SLOWLY AND DOES NOT REQUEST ANY PAIN MEDICATION. SAFETY ,MEASURES IN PLACE AND WILL CONTINUE TO MONITOR.
--- NOTE | 2019-08-29 15:51 | NUR ---
PT IS CURRENTLY LAYING IN BED WITH NO COMPLAINTS OF PAIN. REMOVED PT FROM [facility]MET[facility] TO [facility]. NO COMPLAINTS OF PAIN AT THIS TIME AND WILL CONTINUE TO MONITOR.
--- NOTE | 2019-08-29 15:58 | NUR ---
08/29/19 RD INITIAL ASSESSMENT COMPLETED PLEASE REFER TO NUTRITION ASSESSMENT UNDER CARE ACTIVITY FOR ESTIMATED NUTRITIONAL NEEDS. 1. CONTINUE NPO MEDICALLY APPROPRIATE 2. IF/WHEN PATIENT IS MEDICALLY STABLE FOR PO INTAKE CONSIDER A FULL LIQUID DIET 3. AVOID CITRUS, SPICY AND SEASONED FOODS 4. ADVANCE DIET TO LOW FAT AND MECHANICAL SOFT DIET PER SEDIMENTATIONIST 5. RD TO FOLLOW-UP 2-3 DAYS, HIGH RISK ALEXANDRA MIN, FRAN
--- NOTE | 2019-08-29 17:50 | NUR ---
PT JUST GOT OFF PHONE WITH FAMILY MEMBERS. PT DOES NOT COMPLAIN OF ANY PAIN AT THIS TIME AND WILL CONTINUE TO MONITOR. SAFETY MEASURES IN PLACE.
[2019-08-29] MEDS: RIVAROXABAN 10 MG TAB PO SCH (17:59)
--- NOTE | 2019-08-29 18:00 | NUR ---
PT FINISHED THE USING THE RESTROOM AND COMPLAIN OF ABD PAIN OF 6. NORCO WAS GIVEN PER ORDERS AND TOLERATED WELL.
--- NOTE | 2019-08-29 18:58 | NUR ---
PT IS CURRENTLY EATING APPLESAUCE AND SITTING AT BEDSIDE. STATES THAT PAIN HAS REDUCED. NO OTHER SIGNS OF DISTRESS AT THIS TIME. SAFETY MEASURES IN PLACE AND WILL ENDORSED PT TO RECOOPERER NURSE.
--- NOTE | 2019-08-29 19:25 | NUR ---
RECEIVED BEDSIDE REPORT FROM AM SHIFT RN FOR PT'S CONTINUITY OF CARE. PT IS AAOX4, LUXEMBOURGISH SPEAKING ONLY, SITTING UP IN BED, IS ON ROOM AIR, HAS RIGHT FA 22G SALINE LOCK, PT DENIES ANY PAIN AT THIS TIME. EXPLAINED TO PT THE METHOD CONSULTANT ROUTINE, PT VERBALIZED UNDERSTANDING. SAFETY MEASURES IN PLACE AND CALL LIGHT IS WITHIN REACH. WILL MONITOR PT THROUGHOUT SHIFT.
[2019-08-29] MEDS: ZOLPIDEM 5 MG TAB PO SCH (20:18)
--- NOTE | 2019-08-29 20:20 | NUR ---
ADMINISTERED SCHEDULED MEDICATIONS ORDERED. PT TOLERATED IT WELL. PT EDUCATION GIVEN, PT VERBALIZED UNDERSTANDING. PT DENIES PAIN, EXPLAINED SHE FELT ABD CRAMPING IN THE AFTERNOON. INSTRUCTED PT TO USE THE CALL LIGHT WHEN NEEDED. PT VERBALIZED UNDERSTANDING. WILL CONTINUE TO MONITOR PT.
--- NOTE | 2019-08-29 23:00 | NUR ---
PT ASLEEP WITH NO SIGNS OF DISTRESS. WILL CONTINUE TO MONITOR PT.
[2019-08-30] VITALS: BP 104/57
--- NOTE | 2019-08-30 01:30 | NUR ---
PT ASLEEP WITH NO SIGNS OF DISTRESS. WILL CONTINUE TO MONITOR PT.
--- NOTE | 2019-08-30 03:27 | NUR ---
MADE ROUNDS. PT ASLEEP WITH NO SIGNS OF DISTRESS OR DISCOMFORT. WILL CONTINUE TO MONITOR PT.
--- NOTE | 2019-08-30 05:15 | NUR ---
ADMINISTERED SCHEDULED MEDICATIONS ORDERED. PT ASLEEP, WOKE UP FOR MED ADMINISTRATION AND LAB DRAW. PT TOLERATED THEM WELL. PT'S BP 116/71. PT WENT BACK TO SLEEP. WILL CONTINUE TO MONITOR PT.
[2019-08-30] MEDS: ISOSORBIDE DINITRATE 10 MG TAB PO SCH ×2 (05:16→13:31)
[2019-08-30 06:28] LABS: BASOPHILS % (AUTO) 0.2 % (0.0-2.0); EOSINOPHILS # (AUTO) 0.1 K/uL (0-0.4); EOSINOPHILS % (AUTO) 1.9 % (0.0-4.0); HEMATOCRIT 23.2 % (36-48); HEMOGLOBIN 7.5 g/dL (12.0-16.0); LYMPHOCYTES # (AUTO) 1.5 K/uL (2.5-16.5); LYMPHOCYTES % (AUTO) 23.6 % (20.5-51.1); MEAN CORPUSCULAR HEMOGLOBIN 28 pg (27-31); MEAN CORPUSCULAR HGB CONC 32 g/dL (33-37); MONOCYTES # (AUTO) 0.4 K/uL (0.8-1.0); MONOCYTES % (AUTO) 7.2 % (1.7-9.3); NEUTROPHILS # (AUTO) 4.2 K/uL (1.8-7.7); NEUTROPHILS % (AUTO) 67.1 % (42.2-75.2); PLATELET COUNT (AUTO) 186 K/uL (140-450); RED BLOOD CELL COUNT(AUTO) 2.67 MIL/uL (4.20-5.40); RED CELL DISTRIBUTION WIDTH 16.9 % (11.6-13.7); WHITE BLOOD COUNT (AUTO) 6.2 K/uL (4.8-10.8)
[2019-08-30] MEDS: MORPHINE SULFATE 2 MG/ML SYR IVP PRN (06:48)
--- NOTE | 2019-08-30 06:48 | NUR ---
PT C/O ABD PAIN 12/17 AFTER MD ASSESSED HER ABD. ADMINISTERED PRN IVP PAIN MEDICATION ORDERED. PT TOLERATED IT WELL. STATES TAPE AROUND IV SITE IS MAKING HER ARM ITCHY. PT IN STABLE CONDITION, STATES HAD LOOSE BM AROUND 0615. WILL ENDORSE TO AM SHIFT RN TO ENDORSE TO AM MD, AND FOR PT'S CONTINUITY OF CARE.
[2019-08-30 06:57] LABS: CARBON DIOXIDE 23.2 mmol/L (21-32); CHLORIDE 106 mmol/L (98-107); CREATININE 1.3 mg/dL (0.6-1.3); GLUCOSE 99 mg/dL (74-106); POTASSIUM 4.2 mmol/L (3.5-5.1); SODIUM SERUM 136 mmol/L (136-145); UREA NITROGEN, BLOOD 16 mg/dL (7-18)
[2019-08-30 07:16] LABS: MAGNESIUM 1.9 mg/dL (1.8-2.4); PHOSPHORUS 2.4 mg/dL (2.5-4.9)
--- NOTE | 2019-08-30 07:20 | NUR ---
RECEIVED BEDSIDE REPORT FROM NIGHTSHIFT NURSE. PT RESTING IN BED. ABLE TO MAKE NEEDS KNOWN. RESPIRATIONS EVEN AND UNLABORED WITH NO SOB OR RESPIRATORY DISTRESS. SKIN WARM AND DRY TO TOUCH. IV SITE IN RFA 22G IS CLEAN, DRY, AND INTACT. SAFETY MEASURES IN PLACE. WILL CONTINUE TO MONITOR N
[2019-08-30 08:00] VITALS: BP 141/75
[2019-08-30] MEDS: RIVAROXABAN 10 MG TAB PO SCH (08:36)
[2019-08-30] MEDS: amLODIPine 5 MG TAB PO SCH (08:37)
[2019-08-30] MEDS: METOPROLOL 25 MG TAB PO SCH (08:38)
--- NOTE | 2019-08-30 08:40 | NUR ---
ADMINISTERED SCHED MED PRESCRIBED PER MD ORDER. MEDICATION EDUCATION PERFORMED. PT VERBALIZED UNDERSTANDING. SAFETY MEASURES IN PLACE. WILL CONTINUE TO MONITOR
--- NOTE | 2019-08-30 10:15 | NUR ---
HOURLY ROUNDING. PT RESTING IN BED. ABLE TO MAKE NEEDS KNOWN. RESPIRATIONS EVEN AND UNLABORED WITH NO SOB OR RESPIRATORY DISTRESS. SKIN WARM AND DRY TO TOUCH. SAFETY MEASURES IN PLACE. WILL CONTINUE TO MONITOR
--- NOTE | 2019-08-30 12:45 | NUR ---
PT IS AWARE THAT SHE IS NOT GOING HOME TODAY DUE TO LOW HGB AND HCT. SAFETY MEASURES IN PLACE. WILL CONTINUE TO MONITOR
[2019-08-30 12:50] LABS: HEMATOCRIT 27.3 % (36-48); HEMOGLOBIN 8.7 g/dL (12.0-16.0)
--- NOTE | 2019-08-30 13:30 | NUR ---
ADMINISTERED SCHED MED PRESCRIBED PER MD ORDER. MEDICATION EDUCATION PERFORMED. PT VERBALIZED UNDERSTANDING. SAFETY MEASURES IN PLACE. WILL CONTINUE TO MONITOR
--- NOTE | 2019-08-30 14:30 | NUR ---
COLLECTED URINE SAMPLE FOR UA AND SENT SPECIMEN TO LAB. SAFETY MEASURES IN PLACE. WILL CONTINUE TO MONITOR
[2019-08-30 15:08] LABS: APPEARANCE,URINE HAZY (CLEAR); BILIRUBIN,URINE 1+ (NEGATIVE); BLOOD, URINE 3+ (NEGATIVE); COLOR,URINE RED (YELLOW); LEUKOCYTE ESTERASE ,URINE 2+ (NEGATIVE); NITRITE, URINE POSITIVE (NEGATIVE); UGLUCOSE NEGATIVE (NEGATIVE)
--- NOTE | 2019-08-30 15:26 | NUR ---
P.T. NOTES D/C FROM P.T. AFTER TX, ENDORSED TO NURSING. Addendum: 08/30/19 at 1527 by Khalida Alford PT Amended: Links added.
[2019-08-30 15:51] LABS: RBC,URINE >100 /HPF (0-5)
[2019-08-30 16:00] VITALS: BP 104/57
[2019-08-30 18:25] LABS: HEMATOCRIT 27.9 % (36-48)
[2019-08-30 18:32] VITALS: BP 104/57
--- NOTE | 2019-08-30 19:22 | NUR ---
WENT OVER DISCHARGE INSTRUCTIONS WITH PT USING [employer] HOME SUPPORT WORKER. HOME SUPPORT WORKER STEPHANIE [phone] WAS ABLE TO TRANSLATE THE CONVERSATION. PT SIGNED APPROPRIATE DOCUMENTS. INSTRUCTED PT TO VISIT ED FOR ANY SIGNS OF DISTRESS. PT VERBALIZED UNDERSTANDING. PT REFUSED PNA AND FLU VACCINE. REMOVED INTACT IV CANNULA, ID BAND, AND ALLERGY BAND. PT GATHERED HER BELONGINGS AND CHANGED INTO HER OWN CLOTHES. PT WHEELED OUT TO PRIVATE VEHICLE. PT IS STABLE
== END 2019-08-30 19:30 | disposition home or self-care (01) | DRG 660 ==
LOC: MED 03:25 → MTU 06:22
PROVIDERS: ADMIT General Practice; ATTEND General Practice
PROC: BT1D1ZZ Fluoroscopy of Right Kidney, Ureter and Bladder using Low Osmolar Contrast (ICD-10-PCS; 2019-08-28)
PROC: 0T768DZ Dilation of Right Ureter with Intraluminal Device, Via Natural or Artificial Opening Endoscopic (ICD-10-PCS; principal; 2019-08-28 17:00)
DX: N13.0 Hydronephrosis with ureteropelvic junction obstruction (principal); E44.0 Moderate protein-calorie malnutrition; C25.9 Malignant neoplasm of pancreas, unspecified; E87.1 Hypo-osmolality and hyponatremia; Z68.23 Body mass index [BMI] 23.0-23.9, adult; I16.0 Hypertensive urgency; E87.6 Hypokalemia; E83.39 Other disorders of phosphorus metabolism; Z88.6 Allergy status to analgesic agent; I10 Essential (primary) hypertension; G47.00 Insomnia, unspecified; Z90.49 Acquired absence of other specified parts of digestive tract; Z96.653 Presence of artificial knee joint, bilateral; D63.8 Anemia in other chronic diseases classified elsewhere; D64.9 Anemia, unspecified; R00.0 Tachycardia, unspecified; E02 Subclinical iodine-deficiency hypothyroidism; E83.42 Hypomagnesemia; Z86.711 Personal history of pulmonary embolism; R31.9 Hematuria, unspecified
CPT/HCPCS: 36415; 71045; 74450; 77003; 80048; 80053; 81001; 82140; 82150; 83036; 83605; 83615; 83690; 83735; 83880; 84100; 84439; 84443; 84484; 85018; 85025; 85610; 85730; 87040; 87081; 87086; 92610; 96361; 96365; 96375; 96376; 97110; 97112; 97116; 97161-GP; 97530; 99285; C1758; C1769; C2617; J0360; J0696; J1100; J2001; J2270; J2405; J2704; J3010; J3475; J3480; J3490; J7030; J7042; J7060; J7120; Q0092

== ENCOUNTER 2019-10-13 18:08 | Emergency (ER) | payer OTHER ==
[~2019-10-13] VITALS: Ht 149.9 cm; Wt 45.4 kg
[~2019-10-13 18:08] MED LIST changes: +AMLO10TA PO; -AMLO10TA87 PO; -ASCO1CAP75 PO; -AZIT250T3 PO; +BEN10 PO; -FER325 PO; -HYDR-3298 PO; +ISOS30TA23 PO; -ISOS30TE68 PO; +METO25TA14 PO; -METO25TE2 PO; -METR500T1 PO; -RIVA15TA1 PO; -SYN.05 PO; -VITC500 PO; +ZOLP5TAB1 PO
--- NOTE | 2019-10-13 18:08 | NUR ---
SAUL SIMPSON ALS TO ER BED 09
[2019-10-13 18:12] VITALS: BP 115/67
--- NOTE | 2019-10-13 18:22 | NUR ---
84 y/o female biba als c/o sudden onset epigastric pain 45 min prior to arrival. pt states burning sensation "it felt like tearing". was given 100mcg fentanyl and 4mg zofran iv push by ems. denies n/v/d. rr even and unlabored. 20g iv placed to lt ac placed by ems. vss. placed on animal control specialist, pulse ox, and bp cuff placed. medhx: pancreatic cancer, htn allergies: aspirin
[2019-10-13 18:51] LABS: BASOPHILS % (AUTO) 0.2 % (0.0-2.0); EOSINOPHILS # (AUTO) 0.2 K/uL (0-0.4); HEMATOCRIT 31.3 % (36-48); HEMOGLOBIN 10.1 g/dL (12.0-16.0); LYMPHOCYTES # (AUTO) 2.1 K/uL (2.5-16.5); LYMPHOCYTES % (AUTO) 24.2 % (20.5-51.1); MEAN CORPUSCULAR HEMOGLOBIN 28 pg (27-31); MEAN CORPUSCULAR HGB CONC 32 g/dL (33-37); MEAN CORPUSCULAR VOLUME 85.6 fL (80-94); MONOCYTES % (AUTO) 11.3 % (1.7-9.3); NEUTROPHILS # (AUTO) 5.5 K/uL (1.8-7.7); NEUTROPHILS % (AUTO) 62.3 % (42.2-75.2); PLATELET COUNT (AUTO) 219 K/uL (140-450); RED BLOOD CELL COUNT(AUTO) 3.66 MIL/uL (4.20-5.40); RED CELL DISTRIBUTION WIDTH 19.4 % (11.6-13.7); WHITE BLOOD COUNT (AUTO) 8.8 K/uL (4.8-10.8)
--- NOTE | 2019-10-13 18:59 | NUR ---
ABDIRAHMAN-- GRANDDAUGHTER [phone] WANTS PT TO CALL WHEN AVAILABLE
[2019-10-13 19:05] LABS: ANION GAP 14.6 (8-16); ASPARTATE AMINOTRANSFERASE 47 U/L (15-37); CARBON DIOXIDE 24.8 mmol/L (21-32); CHLORIDE 102 mmol/L (98-107); GLUCOSE 121 mg/dL (74-106); LIPASE 45 U/L (73-393); POTASSIUM 3.4 mmol/L (3.5-5.1); SODIUM SERUM 138 mmol/L (136-145); TOTAL BILIRUBIN 0.4 mg/dL (0.0-1.0); UREA NITROGEN, BLOOD 11 mg/dL (7-18)
--- NOTE | 2019-10-13 19:15 | NUR ---
RECEIVED REPORT FROM OFELIA FLORES. WILL CONT CARE AT THIS TIME.
[2019-10-13 20:24] VITALS: BP 112/63
--- NOTE | 2019-10-13 20:24 | NUR ---
Patient discharged with v/s stable. Written and verbal after care instructions given and explained. Patient alert, oriented and verbalized understanding of instructions. Ambulatory with steady gait. All questions addressed prior to discharge. ID band removed. Patient advised to follow up with PMD. Rx of CIPRO, NORCO given. Patient educated on indication of medication including possible reaction and side effects. Opportunity to ask questions provided and answered.
[2019-10-13 21:01] LABS: APPEARANCE,URINE CLEAR (CLEAR); BILIRUBIN,URINE NEGATIVE (NEGATIVE); BLOOD, URINE 3+ (NEGATIVE); COLOR,URINE YELLOW (YELLOW); LEUKOCYTE ESTERASE ,URINE NEGATIVE (NEGATIVE); NITRITE, URINE POSITIVE (NEGATIVE); PH,URINE 7.5 (5.0-9.0); UGLUCOSE NEGATIVE (NEGATIVE)
[2019-10-13 21:06] LABS: RBC,URINE 80-100 /HPF (0-5); WBC,URINE 0-5 /HPF (0-5)
[2019-10-13 21:07] LABS: TRIPLE PHOSPHATE CRYSTAL,UR 0-10 /HPF (None Seen)
== END 2019-10-13 20:24 | disposition home or self-care (01) ==
LOC: MED 18:08
DX: N39.0 Urinary tract infection, site not specified (principal); C25.9 Malignant neoplasm of pancreas, unspecified; I10 Essential (primary) hypertension; Z88.6 Allergy status to analgesic agent; Z79.899 Other long term (current) drug therapy
CPT/HCPCS: 36415; 80053; 81001; 83690; 85025; 87086; 99284

== ENCOUNTER 2019-10-18 07:24 | Inpatient (IN) | payer OTHER, SELFPAY ==
[~2019-10-18] VITALS: Ht 152.4 cm; Wt 55.8 kg
--- NOTE | 2019-10-18 07:28 | NUR ---
BIBA TAKEN TO BED 10
[2019-10-18 07:36] VITALS: BP 112/65
[2019-10-18] MEDS ORDERED: ACETAMINOPHEN EXTRA STRENGTH 500 MG TAB PO ONE (07:40)
[2019-10-18] MEDS ORDERED: NACL 0.9% 1,000 ML IV ONE (08:00)
--- NOTE | 2019-10-18 08:00 | NUR ---
84 Y/O FEMALE BIBA FROM HOME C/P EPIGASTRIC PAIN X2 DAYS. LAST BM: 3 DAYS AGO. ABD SOFT/TENDER AT EPIGASTRIC REGION, NON DISTENDED. BOWEL SOUNDS NORMOACTIVE IN ALL QUADRANTS. FAMILY REPORTED TO EMS THAT PT HAD 4 EPISODES OF N/V THIS MORNING, PT DENIES ANY N/V. AAOX4. FEBRILE: TEMP 103 VIA ORAL TEMP. RESP EVEN AND UNLABORED. LUNG SOUNDS CLEAR IN BILAT LOBES. PMH: PANCREATIC CX, HTN, DIABETES
--- NOTE | 2019-10-18 08:06 | NUR ---
COVID SWAB PERFORMED AT BEDSIDE, GIVEN TO LIFE SCIENCE TAXONOMIST LEON
--- NOTE | 2019-10-18 08:06 | NUR ---
LAB AT BEDSIDE
--- NOTE | 2019-10-18 08:24 | NUR ---
GRANDDAUGHTER OF PT (ABDIRAHMAN) CALLED FOR STATUS UPDATE, WILL CALL BACK [phone]
[2019-10-18 08:25] LABS: HEMATOCRIT 29.4 % (36-48); HEMOGLOBIN 9.4 g/dL (12.0-16.0); MEAN CORPUSCULAR HEMOGLOBIN 27 pg (27-31); MEAN CORPUSCULAR HGB CONC 32 g/dL (33-37); PLATELET COUNT (AUTO) 176 K/uL (140-450); RED BLOOD CELL COUNT(AUTO) 3.46 MIL/uL (4.20-5.40)
[2019-10-18 08:49] LABS: ANION GAP 16.1 (8-16); ASPARTATE AMINOTRANSFERASE 45 U/L (15-37); CARBON DIOXIDE 22.1 mmol/L (21-32); CHLORIDE 102 mmol/L (98-107); CREATININE 1.4 mg/dL (0.6-1.3); GLUCOSE 141 mg/dL (74-106); POTASSIUM 3.2 mmol/L (3.5-5.1); SODIUM SERUM 137 mmol/L (136-145); TOTAL BILIRUBIN 0.6 mg/dL (0.0-1.0); UREA NITROGEN, BLOOD 14 mg/dL (7-18)
[2019-10-18 08:50] LABS: BILIRUBIN,URINE NEGATIVE (NEGATIVE); BLOOD, URINE 3+ (NEGATIVE); COLOR,URINE AMBER (YELLOW); LEUKOCYTE ESTERASE ,URINE TRACE (NEGATIVE); NITRITE, URINE NEGATIVE (NEGATIVE); PH,URINE 7.5 (5.0-9.0); UGLUCOSE TRACE (NEGATIVE)
[2019-10-18 08:50] LABS: ALBUMIN 2.7 g/dL (3.4-5.0); FIBRINOGEN 438 mg/dL (200-400); PROTHROMBIN TIME 14.6 secs (10.8-13.4)
[2019-10-18 08:51] LABS: D-DIMER > 5000 ng/ml (0-400)
[2019-10-18 08:52] LABS: APPEARANCE,URINE HAZY (CLEAR)
[2019-10-18 08:52] LABS: RSV NEGATIVE (NEGATIVE)
[2019-10-18 08:54] LABS: RBC,URINE >100 /HPF (0-5); WBC,URINE 0-5 /HPF (0-5)
[2019-10-18] MEDS ORDERED: AZITHROMYCIN 500 MG in DEXTROSE 5% 250 ML IV ONE (08:55)
[2019-10-18 08:57] LABS: LYMPHOCYTES % (MANUAL) 3 % (20-46); MONOCYTES % (MANUAL) 4 % (5-12)
[2019-10-18 08:59] LABS: C-REACTIVE PROTEIN QUANT 15.3 mg/dL (0.0-0.9); LACTATE DEHYDROGENASE 273 U/L (81-234)
[2019-10-18] MEDS ORDERED: ONDANSETRON 4 MG/2 ML VIAL IM/IVP PRN (09:20)
[2019-10-18] MEDS ORDERED: DOCUSATE SODIUM 100 MG GELCAP PO PRN (09:20)
[2019-10-18] MEDS ORDERED: ACETAMINOPHEN 325 MG TAB PO PRN (09:20)
[2019-10-18] MEDS ORDERED: cefTRIAXone 1,000 MG VIAL ONE (09:22)
[2019-10-18] MEDS ORDERED: FURO-572 PO (09:36)
[2019-10-18] MEDS ORDERED: RIVA20TA PO (09:36)
--- NOTE | 2019-10-18 09:41 | NUR ---
UPDATED JEFFY ON CONDITION OF PT
--- NOTE | 2019-10-18 09:43 | NUR ---
TEMP RECHECKED, PT TEMP: 98.9
[2019-10-18] MEDS ORDERED: AZITHROMYCIN 500 MG INJ VIAL IV ONE (09:53)
[2019-10-18 10:00] LABS: FREE T4 (FREE THYROXINE) 1.14 ng/dL (0.76-1.46); MAGNESIUM 1.6 mg/dL (1.8-2.4); PHOSPHORUS 1.3 mg/dL (2.5-4.9); THYROID STIMULATING HORMONE 2.92 uIU/mL (0.34-3.74)
[2019-10-18] MEDS ORDERED: ONDANSETRON 4 MG/2 ML VIAL IVP PRN (10:10)
[2019-10-18] MEDS ORDERED: MORPHINE SULFATE 2 MG/ML SYR ONE (10:13)
[2019-10-18] MEDS ORDERED: VANCOMYCIN PER PHARMACY MC PRN (10:15)
[2019-10-18] MEDS ORDERED: MORPHINE SULFATE 2 MG/ML SYR IVP SCH (10:15)
--- NOTE | 2019-10-18 10:35 | NUR ---
DISCHARGE PLANNING: THIS IS AN 84 Y/O FEMALE PATIENT FROM HOME, WHO WAS BIBA DUE TO FLU LIKE SYMPTOMS. INITIAL DIAGNOSIS OF SEPSIS, R/O COVID. CURRENT LABS INCLUDE WBC 19.0, H/H 9.4/29.4, NA/K 137/3.2, BUN/CREA 14/1.4, LACTIC ACID 3.3 ABD ALB 2.7. COVID TEST PENDING. BLOOD AND URINE CS PENDING. CHEST X RAY ON ADMISSION SHOWED MILD BIBASILAR ATELECTASIS. SUPERIMPOSED INFILTRATE IS NOT EXCLUDED. RIGHT CHEST MAXWELL CATH AND RIGHT URETERAL STENT PRESENT. PULMO CONSULT IN PLACE-NOT SEEN YET. ON ROOM AIR - SAT 100%. DC PLAN PENDING ON PATIENT'S RESPONSE TO TREATMENT. Addendum: 10/23/19 at 1206 by Christiane Mosley CM SPOKE TO [facility] AT [facility] [phone] PATIENT HAS BEEN ACCEPTED UNDER DR. MOSS ROOM [address]. NOTIFIED DR[address] MALHOTRA Addendum: 10/23/19 at 1338 by Christiane Mosley CM TRIED CONTACTING FAMILY MEMBER MULTIPLE TIMES AT [phone] AND THERE IS A BUSY SIGNAL. Addendum: 10/23/19 at 1409 by Christiane Mosley CM [facility] PROVIDED AUTH # FOR TRANSPORTATION. TRANSPORTATION # [id number], WILL SET UP TRANSPORTATION ONCE WE HAVE AN AGREEMENT FROM FAMILY MEMBER. Addendum: 10/23/19 at 1554 by Christiane Mosley CM STILL UNABLE TO REACH FAMILY MEMBER ON DECISION, SPOKE TO DR. ROSCOE MIRAMONTES ADVISED THAT WE WAIT A COUPLE MORE HOURS BEFORE TRANSPORTING PATIENT TO SNF. Addendum: 10/23/19 at 1651 by Christiane Mosley CM SPOKE TO DAUGHTER ABDIRAHMAN [phone]. SHE AGREED TO MOTHER GOING TO [facility] FOR IV ABX. [facility]SPORTATION WILL BE HERE BETWEEN 6:00-6:30 TO TRANSPORT PATIENT. NOTIFIED OFEILA
--- NOTE | 2019-10-18 10:42 | NUR ---
PT C/O EPIGASTRIC PAIN 10/10 AFTER 2MG MORPHINE ADMINISTRATION. TACHYPNEIC, SLIGHTLY LABORED. VSS, 2L NC APPLIED
--- NOTE | 2019-10-18 11:15 | NUR ---
received report from er nurse augie-rn. pt arrived via gurney. aox4-russian speaking. on room air, with iv site left ca #20g running ns @ 60ml/hr. discussed plan of care and pt verbalized understanding. mrsa nares swab collected. call light within reach. no s/s of respiratory distress or discomfort noted at this time. will continue to monitor.
[2019-10-18] MEDS ORDERED: DICYCLOMINE 10 MG CAP PO PRN (11:20)
[2019-10-18] MEDS ORDERED: HYDROmorphone PFS 2 MG/ML SYR IVP PRN (11:20)
--- NOTE | 2019-10-18 11:26 | NUR ---
Patient will be admitted to care of [facility]. Admited to TELE. Will go to room 127A. Belongings list completed. Report to VERONICA GILBERT.
[2019-10-18 12:00] VITALS: BP 100/50
[2019-10-18] MEDS: NACL 0.9% 1,000 ML IV SCH ×2 (12:50→20:32)
--- NOTE | 2019-10-18 12:50 | NUR ---
ivf, zosyn and dulcolax suppository given and tolerated well. call light within reach. no s/s of respiratory distress or discomfort noted at this time. will continue to monitor.
[2019-10-18] MEDS: PIPERACILLIN/TAZOBACTAM 2.25 GM in DEXTROSE 5% 50 ML IV SCH ×2 (12:51→18:24)
[2019-10-18] MEDS ORDERED: BISACODYL 10 MG SUPP RC SCH (13:00)
[2019-10-18] MEDS: VANCOMYCIN 750 MG in DEXTROSE 5% 250 ML IV SCH (13:50)
--- NOTE | 2019-10-18 13:50 | NUR ---
vancocin given and tolerated well. call light within reach. no s/s of respiratory distress or discomfort noted at this time. will continue to monitor.
[2019-10-18] MEDS ORDERED: MAG SULF 2000 MG/WATER PREMIX 50 ML IV SCH (15:00)
[2019-10-18] MEDS: ENOXAPARIN 60 MG/0.6 ML SYR SUBQ SCH (15:36)
--- NOTE | 2019-10-18 15:36 | NUR ---
lovenox and mag rider given and tolerated well. call light within reach. no s/s of respiratory distress or discomfort noted at this time. will continue to monitor.
[2019-10-18] MEDS ORDERED: SODIUM FERRIC GLUCONATE 125 MG in NACL 0.9% 100 ML IV SCH (15:50)
[2019-10-18 16:00] VITALS: BP 105/63
[2019-10-18] MEDS ORDERED: POTASSIUM CHLORIDE 40 MEQ, LIDOCAINE MPF 1% 25 MG in NACL 0.9% 250 ML IV SCH (17:00)
--- NOTE | 2019-10-18 18:04 | NUR ---
ST CLARIFICATION NOTE Pt DEMONSTRATED FUNCTIONAL SWALLOW FOR ALL TRIALS OF ICE CHIPS, PUREE, MSFC, MSC (W/ PROLONGED MASTICATION), AND THIN LIQUIDS BY CUP AND STRAW W/O OVERT S/S OF ASPIRATION OR PENETRATION NOTED. AP TRANSFER AND SWALLOW RESPONSE WERE TIMELY W/ FULL LARYNGEAL ELEVATION AND EXCURSION. Pt REQUIRED ADDITIONAL TIME FOR MASTICATION OF MSC AND REPORTED PREFERENCE OF MSFC TO EASE MASTICATION. Pt IS ABLE TO FEED SELF W/ TRAY SET UP. REC MSFC AND THIN LIQUID BY CUP/STRAW DIET. ASPIRATION PRECAUTIONS, ORAL CARE, TRAY SET UP, AND INTERMITTENT SUPERVISION NEEDED. D/C SKILLED ST FOR SWALLOW. Pt IS AT [facility]. TRINITY KHAN MS, CCC-BUSINESS TRAVEL CONSULTANT
--- NOTE | 2019-10-18 18:24 | NUR ---
zosyn given and tolerated well. call light within reach. no s/s of respiratory distress or discomfort noted at this time. will continue to monitor.
--- NOTE | 2019-10-18 18:55 | NUR ---
kcl given and tolerated well. call light within reach. no s/s of respiratory distress or discomfort noted at this time. will continue to monitor.
--- NOTE | 2019-10-18 19:22 | NUR ---
vancocin given and tolerated well. call light within reach. no s/s of respiratory distress or discomfort noted at this time. will continue to monitor. Addendum: 10/18/19 at 1923 by Mounika Shen RN please disregard- wrong time
--- NOTE | 2019-10-18 19:29 | NUR ---
report given to alivia-heel burnishernight time nanny nurse. pt stable at this time. l
--- NOTE | 2019-10-18 19:30 | NUR ---
RECEIVED BEDSIDE REPORT FROM DAY SHIFT NURSESTEFFANIE. PT SLEEPING IN BED COMFORTABLY. BREATHING EVEN AND UNLABORED. IV SITE ON LAC 20G, PATENT, INTACT AND ASYMPTOMATIC, RUNNING POTASSIUM MD ORDERED. SKIN INTACT, WARM AND DRY TO TOUCH. ALL SAFETY MEASUREMENT ARE MET. BED IN LOW POSITION, CALL LIGHT WITHIN REACH. WILL CONTINUE TO MONITOR.
[2019-10-18 20:00] VITALS: BP 95/49
[2019-10-18] MEDS: METOPROLOL 25 MG TAB PO SCH (21:00)
[2019-10-18] MEDS ORDERED: LOVENOX 1MG/KG Q12H SUBQ SCH (21:00)
[2019-10-18] MEDS: SODIUM PHOS / POTASSIUM PHOS 1 PKT PDR PO SCH (21:49)
--- NOTE | 2019-10-18 21:50 | NUR ---
GIVEN NEUTRA-PHOS MD ORDERED. PT TOLERATED WELL. HELD METOPROLOL D/T DECREASED BP, 94/49. WILL CONTINUE TO MONITOR.
--- NOTE | 2019-10-18 23:44 | NUR ---
ENDORSED PT TO RN, MJ FOR CONTINUOUS CARE. PT IN STABLE CONDITION.
[2019-10-19] VITALS: BP 108/54
--- NOTE | 2019-10-19 | NUR ---
TOOK OVER THE PT FROM OFELIA GONZALEZ. PT ASLEEP BUT AROUSABLE. DIVEHI SPEAKING ONLY. FULL STACK SOFTWARE ENGINEER [place]ALO AIDE WITH THE TRANSLATION. PT HAS NO COMPLAIN AT THIS TIME. NO S/SX OF DISTRESS NOTED. GAVE THE SCHEDULED ANTIBIOTIC ZOSYN ORDERED. SAFETY MEASURES IN PLACED. CALL LIGHT WITHIN REACH. WILL CONTINUE POC. VSS, AFEBRILE, SATING 100% ON RA.
[2019-10-19] MEDS: PIPERACILLIN/TAZOBACTAM 2.25 GM in DEXTROSE 5% 50 ML IV SCH ×4 (00:26→18:25)
--- NOTE | 2019-10-19 02:00 | NUR ---
PT ASLEEP. NO DISTRESS NOTED. CALL LIGHT WITHIN REACH. WILL CONTINUE POC.
[2019-10-19 04:00] VITALS: BP 131/70
--- NOTE | 2019-10-19 04:00 | NUR ---
PT ASLEEP.TOOK THE PT VS, STABLE, AFEBRILE, SATING 98% ON RA. NO COMPLAIN AT THIS TIME. SAFETY MEASURES IN PLACED.
[2019-10-19 06:06] LABS: BASOPHILS % (AUTO) 0.2 % (0.0-2.0); EOSINOPHILS # (AUTO) 0.1 K/uL (0-0.4); EOSINOPHILS % (AUTO) 0.6 % (0.0-4.0); HEMATOCRIT 26.7 % (36-48); HEMOGLOBIN 8.4 g/dL (12.0-16.0); LYMPHOCYTES # (AUTO) 1.8 K/uL (2.5-16.5); LYMPHOCYTES % (AUTO) 10.2 % (20.5-51.1); MEAN CORPUSCULAR HEMOGLOBIN 27 pg (27-31); MEAN CORPUSCULAR HGB CONC 32 g/dL (33-37); MEAN CORPUSCULAR VOLUME 85.8 fL (80-94); MONOCYTES # (AUTO) 1.7 K/uL (0.8-1.0); MONOCYTES % (AUTO) 9.6 % (1.7-9.3); NEUTROPHILS % (AUTO) 79.4 % (42.2-75.2); PLATELET COUNT (AUTO) 153 K/uL (140-450); RED BLOOD CELL COUNT(AUTO) 3.11 MIL/uL (4.20-5.40); RED CELL DISTRIBUTION WIDTH 19.1 % (11.6-13.7); WHITE BLOOD COUNT (AUTO) 17.6 K/uL (4.8-10.8)
--- NOTE | 2019-10-19 06:29 | NUR ---
PT STABLE AND NO SIGN AND SYMPTOMS OF DISTRESS NOTED. NO COMPLAIN AT THIS TIME. ALL NEEDS ATTENDED. CALL LIGHT WITHIN REACH. WILL ENDORSE THE PT TO THE ONCOMING RN FOR CONTINUITY OF CARE.
[2019-10-19] MEDS: NACL 0.9% 1,000 ML IV SCH (06:32)
[2019-10-19 06:48] LABS: CHOL/HDL RATIO 3.2 (1-4.5)
[2019-10-19 07:03] LABS: MAGNESIUM 2.4 mg/dL (1.8-2.4); PHOSPHORUS 2.9 mg/dL (2.5-4.9)
[2019-10-19 07:08] LABS: ANION GAP 11.5 (8-16); ASPARTATE AMINOTRANSFERASE 33 U/L (15-37); CARBON DIOXIDE 25.1 mmol/L (21-32); CHLORIDE 106 mmol/L (98-107); GLUCOSE 101 mg/dL (74-106); LACTATE DEHYDROGENASE 205 U/L (81-234); POTASSIUM 4.6 mmol/L (3.5-5.1); SODIUM SERUM 138 mmol/L (136-145); TOTAL BILIRUBIN 0.5 mg/dL (0.0-1.0); UREA NITROGEN, BLOOD 14 mg/dL (7-18)
--- NOTE | 2019-10-19 07:16 | NUR ---
RECEIVED REPORT FROM NETWORK CONTROL SUPERVISOR NURSE FOR CONTINUITY OF CARE. A&OX3-4; HEBREW SPEAKING. RESPIRATIONS EVEN AND UNLABORED BREATHING TO RA. L HAND 20G IV IS PATENT AND INTACT, RUNNING PER ORDERS. RT CHEST PORTACATH NOTED. REVIEWED PLAN OF CARE WITH PATIENT. TELE MONITOR ATTACHED. SAFETY MEASURES IN PLACE; CALL LIGHT WITHIN REACH, BED IN LOW POSITION. NO DISTRESS NOTED. WILL CONTINUE TO MONITOR.
[2019-10-19 08:00] VITALS: BP 121/67
[2019-10-19 08:09] LABS: FOLIC ACID 13.3 ng/mL (>3.0)
[2019-10-19] MEDS: ISOSORBIDE MONONITRATE 30 MG TABER PO SCH (08:52)
[2019-10-19] MEDS: amLODIPine 5 MG TAB PO SCH (08:52)
[2019-10-19] MEDS: FUROSEMIDE 20 MG TAB PO SCH (08:52)
[2019-10-19] MEDS: SODIUM PHOS / POTASSIUM PHOS 1 PKT PDR PO SCH ×2 (08:54→21:00)
[2019-10-19] MEDS: METOPROLOL 25 MG TAB PO SCH ×2 (08:54→21:00)
--- NOTE | 2019-10-19 08:59 | NUR ---
SCHEDULED MEDICATIONS ADMINISTERED. BP: 121/67; PULSE: 81. PT TOLERATED PO MEDICATIONS WELL. NO DISTRESS NOTED. SAFETY MEASURES IN PLACE. TELE MONITOR ATTACHED. WILL CONTINUE TO MONITOR.
[2019-10-19] MEDS ORDERED: ISOSORBIDE DINITRATE PO SCH (09:00)
--- NOTE | 2019-10-19 11:00 | NUR ---
PT SWABBED FOR SECOND COVID TEST. IV FLUIDS HUNG, AND RUNNING PER ORDERS. NO ACUTE DISTRESS NOTED. WILL CONTINUE TO MONITOR.
--- NOTE | 2019-10-19 11:10 | NUR ---
ASSISTED PATIENT TO BATHROOM. PT COMPLAINS OF PAIN AND HARD STOOL. STOOL COLLECTED IN TOILET HAT APPEARS HARD, WITH RED COLORED LIQUID NOTED. ASSISTED PT BACK TO BED. BED ALARM ON, SAFETY MEASURES IN PLACE. WILL CONTINUE TO MONITOR.
--- NOTE | 2019-10-19 11:45 | NUR ---
ORDERED OCCULT STOOL SAMPLE DROPPED OFF TO LAB.
[2019-10-19 12:00] VITALS: BP 112/60
--- NOTE | 2019-10-19 12:35 | NUR ---
IVPB ZOSYN, HUNG, AND RUNNING PER ORDERS. PT IS GETTING READY TO EAT HER LUNCH. NO DISTRESS NOTED.
[2019-10-19] MEDS ORDERED: BISACODYL 10 MG SUPP RC SCH (14:00)
--- NOTE | 2019-10-19 14:46 | NUR ---
ASSISTED PT TO BATHROOM, AND BACK TO BED. BED ALARM ON; SAFETY MEASURES IN PLACE. WILL CONTINUE TO MONITOR.
[2019-10-19] MEDS: VANCOMYCIN 750 MG in DEXTROSE 5% 250 ML IV SCH (15:15)
--- NOTE | 2019-10-19 15:15 | NUR ---
ORDERED SUPPOSITORY ADMINISTERED. LOVENOX ADMINISTERED SUBQ. IVPB ANTIBIOTICS, RUNNING PER ORDERS. WILL CONTINUE TO MONITOR.
[2019-10-19] MEDS: ENOXAPARIN 60 MG/0.6 ML SYR SUBQ SCH (15:17)
--- NOTE | 2019-10-19 15:20 | NUR ---
10/19/19 RD INITIAL ASSESSMENT COMPLETED PLEASE REFER TO NUTRITION ASSESSMENT UNDER CARE ACTIVITY FOR ESTIMATED NUTRITIONAL NEEDS. 1. CONTINUE MECHANICAL SOFT DIET TOLERATED 2. RECOMMEND ENSURE CLEAR TID 3. ENCOURAGE PO INTAKE 4. RD TO FOLLOW-UP 2-3 DAYS, HIGH RISK ALEXANDRA MIN, RD
[2019-10-19 16:00] VITALS: BP 116/53
--- NOTE | 2019-10-19 19:14 | NUR ---
GAVE BEDSIDE REPORT TO NIGHTSHIFT NURSE, FOR CONTINUITY OF CARE. PT IS IN STABLE CONDITION.
--- NOTE | 2019-10-19 19:20 | NUR ---
RECEIVED PT FROM DAY SHIFT NURSE PT IS AAOX4 AMBULATORY WITH ROTARY DRILLER HELPER SLOVENIAN SPEAKER, , IV ON LEFT AC INFUSING WELL AND PT HAS A PORT A CATH ON RT UPPER CHEST FOR HX PANCREATIC AND LIVER CANCER, ON TELEMETRY SR INITIAL ASSESSMENT DONE
[2019-10-19 19:50] LABS: BASOPHILS % (AUTO) 0.1 % (0.0-2.0); EOSINOPHILS # (AUTO) 0.1 K/uL (0-0.4); EOSINOPHILS % (AUTO) 0.5 % (0.0-4.0); HEMATOCRIT 26.4 % (36-48); HEMOGLOBIN 8.4 g/dL (12.0-16.0); LYMPHOCYTES # (AUTO) 1.4 K/uL (2.5-16.5); LYMPHOCYTES % (AUTO) 9.6 % (20.5-51.1); MEAN CORPUSCULAR HEMOGLOBIN 27 pg (27-31); MEAN CORPUSCULAR HGB CONC 32 g/dL (33-37); MEAN CORPUSCULAR VOLUME 85.4 fL (80-94); MONOCYTES % (AUTO) 6.5 % (1.7-9.3); NEUTROPHILS # (AUTO) 12.5 K/uL (1.8-7.7); NEUTROPHILS % (AUTO) 83.3 % (42.2-75.2); PLATELET COUNT (AUTO) 169 K/uL (140-450); RED BLOOD CELL COUNT(AUTO) 3.09 MIL/uL (4.20-5.40); RED CELL DISTRIBUTION WIDTH 18.9 % (11.6-13.7); WHITE BLOOD COUNT (AUTO) 15.1 K/uL (4.8-10.8)
[2019-10-19 20:00] VITALS: BP 109/60
--- NOTE | 2019-10-19 21:00 | NUR ---
PT COVID TEST # 2 IS NEGATIVE
--- NOTE | 2019-10-19 21:30 | NUR ---
DR GEORGES WAS HERE AND SEE LIAM PT.
--- NOTE | 2019-10-19 23:00 | NUR ---
PT SLEEPING WELL AND QUIET AFTER PAIN MEDIC GIVEN NOT DISTRESS NOTED ON TELMETRY SR
[2019-10-20] VITALS (7 sets, daily range): BP systolic 100–142; BP diastolic 51–85
[2019-10-20] MEDS: PIPERACILLIN/TAZOBACTAM 2.25 GM in DEXTROSE 5% 50 ML IV SCH ×5 (00:28→23:52)
--- NOTE | 2019-10-20 01:53 | NUR ---
PT SLEEPING WELL ON TELEMETRY SR NOT DISTRESS NOTED
--- NOTE | 2019-10-20 04:00 | NUR ---
SPONGE BATH GIVEN LINEN CHANGED, REPOSITIONED Q2H ON TELEMETRY SR
[2019-10-20 06:16] LABS: BASOPHILS % (AUTO) 0.2 % (0.0-2.0); EOSINOPHILS # (AUTO) 0.2 K/uL (0-0.4); EOSINOPHILS % (AUTO) 1.3 % (0.0-4.0); HEMATOCRIT 23.1 % (36-48); HEMOGLOBIN 7.5 g/dL (12.0-16.0); LYMPHOCYTES # (AUTO) 2.1 K/uL (2.5-16.5); LYMPHOCYTES % (AUTO) 15.7 % (20.5-51.1); MEAN CORPUSCULAR HEMOGLOBIN 27 pg (27-31); MEAN CORPUSCULAR HGB CONC 32 g/dL (33-37); MEAN CORPUSCULAR VOLUME 84.5 fL (80-94); MONOCYTES # (AUTO) 1.8 K/uL (0.8-1.0); MONOCYTES % (AUTO) 13.6 % (1.7-9.3); NEUTROPHILS # (AUTO) 9.2 K/uL (1.8-7.7); NEUTROPHILS % (AUTO) 69.2 % (42.2-75.2); PLATELET COUNT (AUTO) 146 K/uL (140-450); RED BLOOD CELL COUNT(AUTO) 2.73 MIL/uL (4.20-5.40); RED CELL DISTRIBUTION WIDTH 19.2 % (11.6-13.7); WHITE BLOOD COUNT (AUTO) 13.3 K/uL (4.8-10.8)
[2019-10-20] MEDS: NACL 0.9% 1,000 ML IV SCH (06:32)
--- NOTE | 2019-10-20 06:50 | NUR ---
DENIES ANY PAIN OR DISCOMFORT PT WILL BE ENDORSED TO DAY SHIFT NURSE FOR CONTINUE ON CARE
[2019-10-20 07:02] LABS: MAGNESIUM 1.8 mg/dL (1.8-2.4); PHOSPHORUS 3.3 mg/dL (2.5-4.9)
[2019-10-20 07:03] LABS: ANION GAP 11.5 (8-16); CHLORIDE 105 mmol/L (98-107); CREATININE 0.9 mg/dL (0.6-1.3); GLUCOSE 135 mg/dL (74-106); POTASSIUM 3.5 mmol/L (3.5-5.1); SODIUM SERUM 138 mmol/L (136-145); UREA NITROGEN, BLOOD 10 mg/dL (7-18)
--- NOTE | 2019-10-20 07:15 | NUR ---
RECEIVED BEDSIDE REPORT FROM NIGHTSHIFT NURSE. PT RESTING IN BED. ABLE TO MAKE NEEDS KNOWN. RESPIRATIONS EVEN AND UNLABORED WITH NO SOB OR RESPIRATORY DISTRESS. SKIN WARM AND DRY TO TOUCH. IV SITE IN LAC 20G IS CLEAN, DRY, AND INTACT. SAFETY MEASURES IN PLACE. WILL CONTINUE TO MONITOR
[2019-10-20] MEDS: FUROSEMIDE 20 MG TAB PO SCH (08:36)
[2019-10-20] MEDS: ISOSORBIDE MONONITRATE 30 MG TABER PO SCH (08:36)
[2019-10-20] MEDS: amLODIPine 5 MG TAB PO SCH (08:36)
[2019-10-20] MEDS: METOPROLOL 25 MG TAB PO SCH ×2 (08:37→21:00)
[2019-10-20] MEDS: SODIUM PHOS / POTASSIUM PHOS 1 PKT PDR PO SCH ×2 (08:37→21:14)
--- NOTE | 2019-10-20 08:43 | NUR ---
ADMINISTERED SCHED MED PRESCRIBED PER MD ORDER. PT TOLERATED WELL. MEDICATION EDUCATION PERFORMED. PT VERBALIZED UNDERSTANDING. SAFETY MEASURES IN PLACE. WILL CONTINUE TO MONITOR
[2019-10-20] MEDS: ENOXAPARIN 60 MG/0.6 ML SYR SUBQ SCH (09:08)
--- NOTE | 2019-10-20 09:14 | NUR ---
OBTAINED CONSENT FOR MEDIPORT REMOVAL. EXPLAINED PROCEDURE TO PATIENT. CONSENT PLACED IN CHART. SAFETY MEASURES IN PLACE. WILL CONTINUE TO MONITOR
[2019-10-20] MEDS ORDERED: BISACODYL 10 MG SUPP RC SCH (12:15)
[2019-10-20] MEDS ORDERED: SODIUM FERRIC GLUCONATE 125 MG in NACL 0.9% 100 ML IV SCH (12:30)
--- NOTE | 2019-10-20 12:30 | NUR ---
ADMINISTERED SCHED MED PRESCRIBED PER MD ORDER. PT TOLERATED WELL. MEDICATION EDUCATION PERFORMED. PT VERBALIZED UNDERSTANDING. SAFETY MEASURES IN PLACE. WILL CONTINUE TO MONITOR
--- NOTE | 2019-10-20 12:40 | NUR ---
OR CAME AND TOOK PATIENT FOR PROCEDURE. SAFETY MEASURES IN PLACE. WILL CONTINUE TO MONITOR
[2019-10-20] MEDS ORDERED: PROPOFOL 200 MG/20 ML VIAL IV ONE (13:09)
[2019-10-20] MEDS ORDERED: BUPIVACAINE-MPF/EPI 0.25% 30 ML VIAL INJ ONE (13:22)
[2019-10-20] MEDS ORDERED: LIDOCAINE 1% 500 MG/50 ML VIAL ONE (13:22)
[2019-10-20] MEDS ORDERED: HYDROcodone/APAP 5/325 MG 1 TAB TAB PO PRN (13:45)
--- NOTE | 2019-10-20 14:15 | NUR ---
PT RETURNED FROM OR. PT SUCCESSFULLY HAD PORT A CATH REMOVED. SAFETY MEASURES IN PLACE. WILL CONTINUE TO MONITOR
--- NOTE | 2019-10-20 14:48 | NUR ---
ADMINISTERED SCHED MED PRESCRIBED PER MD ORDER. PT TOLERATED WELL. MEDICATION EDUCATION PERFORMED. PT VERBALIZED UNDERSTANDING. SAFETY MEASURES IN PLACE. WILL CONTINUE TO MONITOR
--- NOTE | 2019-10-20 17:23 | NUR ---
ADMINISTERED SCHED MED PRESCRIBED PER MD ORDER. PT TOLERATED WELL. MEDICATION EDUCATION PERFORMED. PT VERBALIZED UNDERSTANDING. SAFETY MEASURES IN PLACE. WILL CONTINUE TO MONITOR
--- NOTE | 2019-10-20 19:20 | NUR ---
ENDORSED AT BEDSIDE TO NIGHTSHIFT NURSE FOR CONTINUITY OF CARE. PT IS STABLE
[2019-10-20 19:29] LABS: BASOPHILS % (AUTO) 0.1 % (0.0-2.0); EOSINOPHILS # (AUTO) 0.1 K/uL (0-0.4); HEMATOCRIT 27.5 % (36-48); HEMOGLOBIN 8.8 g/dL (12.0-16.0); LYMPHOCYTES # (AUTO) 1.3 K/uL (2.5-16.5); LYMPHOCYTES % (AUTO) 10.8 % (20.5-51.1); MEAN CORPUSCULAR HEMOGLOBIN 27 pg (27-31); MEAN CORPUSCULAR HGB CONC 32 g/dL (33-37); MEAN CORPUSCULAR VOLUME 84.4 fL (80-94); MONOCYTES # (AUTO) 0.9 K/uL (0.8-1.0); MONOCYTES % (AUTO) 7.2 % (1.7-9.3); NEUTROPHILS % (AUTO) 80.9 % (42.2-75.2); PLATELET COUNT (AUTO) 182 K/uL (140-450); RED BLOOD CELL COUNT(AUTO) 3.25 MIL/uL (4.20-5.40); RED CELL DISTRIBUTION WIDTH 19.5 % (11.6-13.7); WHITE BLOOD COUNT (AUTO) 12.4 K/uL (4.8-10.8)
[2019-10-20 19:36] LABS: CARBON DIOXIDE 24.1 mmol/L (21-32); CHLORIDE 101 mmol/L (98-107); GLUCOSE 220 mg/dL (74-106); POTASSIUM 3.1 mmol/L (3.5-5.1); SODIUM SERUM 137 mmol/L (136-145); UREA NITROGEN, BLOOD 7 mg/dL (7-18)
--- NOTE | 2019-10-20 19:49 | NUR ---
RECEIVED REPORT FROM AM SHIFT NURSE. PATIENT ALERT AND ORIENTED X4. SHE IS AWAKE AND LAYING IN BED ON ROOM AIR, NO S/S OF RESP DISTRESS NOTED. WILL CONTINUE TO MONITOR. BED IN LOW POSITION AND CALL LIGHT WITHIN REACH. Addendum: 10/20/19 at 1958 by Yenny Best RN REPORT RECEIVED AT 1909
--- NOTE | 2019-10-20 20:30 | NUR ---
LOPRESSOR NOT GIVEN. BP INITIALLY 92/43. HR-95. WILL CONTINUE TO MONITOR.
--- NOTE | 2019-10-20 21:00 | NUR ---
PATIENT RECEIVED MEDICATIONS PER ORDER. TOLERATED WELL. PATIENT ASSISTED TO THE RESTROOM WELL, NO S/S OF DISTRESS NOTED. WILL CONTINUE TO MONITOR
--- NOTE | 2019-10-20 23:55 | NUR ---
ANTIBIOTIC MEDICATION HUNG ORDERED. IV LINE PATENT AND INTACT. PATIENT SLEEPING, BED IN LOW POSITION AND CALL LIGHT WITHIN REACH
--- NOTE | 2019-10-21 01:30 | NUR ---
PT AWAKE. ASSISTED UP TO THE BATHROOM. HAD A SMALL BM NOTED. BACK TO BED WITH NO DISCOMFORT NOTED.
--- NOTE | 2019-10-21 03:22 | NUR ---
ROUNDS DONE AND PATIENT SLEEPING, IN SIDE LYING POSITION. NO S/S OF DISTRESS NOTED, PATIENT CONTINUES ON ROOM AIR. WILL CONTINUE TO MONITOR.
[2019-10-21] MEDS ORDERED: POTASSIUM CHLORIDE 10 MEQ TABER PO SCH (03:35)
[2019-10-21 04:00] VITALS: BP 135/78
--- NOTE | 2019-10-21 04:05 | NUR ---
KDUR GIVEN TO COVER 3.1 POTASSIUM, PATIENT TOLERATED MEDICATION BY MOUTH. ASSISTED TO THE RESTROOM AND BACK TO BED. CALL LIGHT WITHIN REACH AND BED IN LOW POSITION. WILL CONTINUE TO MONITOR
[2019-10-21] MEDS: PIPERACILLIN/TAZOBACTAM 2.25 GM in DEXTROSE 5% 50 ML IV SCH ×3 (05:43→17:13)
--- NOTE | 2019-10-21 06:18 | NUR ---
PATIENT SLEEPING, NO S/S OF DISTRESS NOTED. PATIENT CONTINUES ON ROOM AIR WITH O2 SAT AT 99%
[2019-10-21] MEDS: NACL 0.9% 1,000 ML IV SCH (06:21)
[2019-10-21 07:30] LABS: ANION GAP 11.4 (8-16); CARBON DIOXIDE 25.3 mmol/L (21-32); CHLORIDE 103 mmol/L (98-107); CREATININE 0.8 mg/dL (0.6-1.3); GLUCOSE 125 mg/dL (74-106); POTASSIUM 3.7 mmol/L (3.5-5.1); SODIUM SERUM 136 mmol/L (136-145); UREA NITROGEN, BLOOD 8 mg/dL (7-18)
--- NOTE | 2019-10-21 07:32 | NUR ---
REPORT GIVEN TO AM SHIFT NURSE FOR CONTINUITY OF CARE. PATIENT IN STABLE CONDITION AT THIS TIME
--- NOTE | 2019-10-21 07:33 | NUR ---
RECEIVED REPORT FROM FISHER CLAM NURSE BRENTON/ALEXANDRA-OFELIA. PT SLEEPING IN BED, AOX4- [place] SPEAKING, ON ROOM AIR WITH LEFT AC #20G RUNNING NS @20ML/HR. S/P REMOVAL OF MAXWELL CATH ON 10/20/2019. AMBULATORY WITH ASSISTANCE. CALL LIGHT WITHIN REACH. NO S/S OF RESPIRATORY DISTRESS OR DISCOMFORT NOTED AT THIS TIME. WILL CONTINUE TO MONITOR.
[2019-10-21 07:34] LABS: MAGNESIUM 1.6 mg/dL (1.8-2.4); PHOSPHORUS 3.5 mg/dL (2.5-4.9)
[2019-10-21 07:36] LABS: BASOPHILS % (AUTO) 0.2 % (0.0-2.0); EOSINOPHILS # (AUTO) 0.2 K/uL (0-0.4); EOSINOPHILS % (AUTO) 1.4 % (0.0-4.0); LYMPHOCYTES % (AUTO) 17.2 % (20.5-51.1); MEAN CORPUSCULAR HEMOGLOBIN 27 pg (27-31); MEAN CORPUSCULAR HGB CONC 32 g/dL (33-37); MONOCYTES # (AUTO) 1.4 K/uL (0.8-1.0); NEUTROPHILS % (AUTO) 69.2 % (42.2-75.2); PLATELET COUNT (AUTO) 165 K/uL (140-450); RED BLOOD CELL COUNT(AUTO) 2.97 MIL/uL (4.20-5.40); RED CELL DISTRIBUTION WIDTH 18.9 % (11.6-13.7); WHITE BLOOD COUNT (AUTO) 11.6 K/uL (4.8-10.8)
[2019-10-21 08:00] VITALS: BP 132/73
[2019-10-21] MEDS: ISOSORBIDE MONONITRATE 30 MG TABER PO SCH (09:29)
[2019-10-21] MEDS: FUROSEMIDE 20 MG TAB PO SCH (09:30)
[2019-10-21] MEDS ORDERED: MAG SULF 2000 MG/WATER PREMIX 50 ML IV SCH (09:30)
[2019-10-21] MEDS: METOPROLOL 25 MG TAB PO SCH ×3 (09:30→20:28)
[2019-10-21] MEDS: amLODIPine 5 MG TAB PO SCH (09:31)
[2019-10-21] MEDS: SODIUM PHOS / POTASSIUM PHOS 1 PKT PDR PO SCH ×2 (09:31→20:18)
--- NOTE | 2019-10-21 09:32 | NUR ---
SPOKE WITH DR. REID REGARDING MAGNESIUM 1.6 AND WAS GIVEN ORDER FOR MAG RIDDER. SCHEDULED MEDICATIONS GIVEN WELL MAG RIDDER AND TOLERATED WELL. ASSISTED PT TO THE BATHROOM AND NOW SITTING ON BEDSIDE CHAIR. CALL LIGHT AND TELEPHONE WITHIN REACH. NO S/S OF RESPIRATORY DISTRESS OR DISCOMFORT NOTED AT THIS TIME. WILL CONTINUE TO MONITOR.
--- NOTE | 2019-10-21 11:00 | NUR ---
PT RESTING IN BED. CALL LIGHT WITHIN REACH. NO S/S OF RESPIRATORY DISTRESS OR DISCOMFORT NOTED AT THIS TIME. WILL CONTINUE TO MONITOR.
[2019-10-21 12:00] VITALS: BP 88/43
--- NOTE | 2019-10-21 12:45 | NUR ---
SCHEDULED MEDICATION ZOSYN GIVEN AND TOLERATED WELL. CALL LIGHT WITHIN REACH. NO S/S OF RESPIRATORY DISTRESS OR DISCOMFORT NOTED AT THIS TIME. WILL CONTINUE TO MONITOR.
--- NOTE | 2019-10-21 14:25 | NUR ---
NEW IV SITE LEFT FA #22G. OLD IV SITE WAS ACCIDENTALLY PULLED. CANNULA INTACT. PT TOLERATED WELL. CALL LIGHT WITHIN REACH. NO S/S OF RESPIRATORY DISTRESS OR DISCOMFORT NOTED AT THIS TIME. WILL CONTINUE TO MONITOR.
[2019-10-21] MEDS: ENOXAPARIN 60 MG/0.6 ML SYR SUBQ SCH (15:05)
--- NOTE | 2019-10-21 15:05 | NUR ---
SCHEDULED MEDICATION LOVENOX GIVEN AND TOLERATED WELL. CALL LIGHT WITHIN REACH. NO S/S OF RESPIRATORY DISTRESS OR DISCOMFORT NOTED AT THIS TIME. WILL CONTINUE TO MONITOR.
[2019-10-21 16:00] VITALS: BP 95/59
[2019-10-21] MEDS: FERROUS SULFATE 325 MG TABEC PO SCH (17:12)
--- NOTE | 2019-10-21 17:13 | NUR ---
SCHEDULED MEDICATIONS ZOSYN AND FERROUS SULFATE GIVEN AND TOLERATED WELL. CALL LIGHT WITHIN REACH. NO S/S OF RESPIRATORY DISTRESS OR DISCOMFORT NOTED AT THIS TIME. WILL CONTINUE TO MONITOR.
--- NOTE | 2019-10-21 18:45 | NUR ---
PT RESTING IN BED. CALL LIGHT WITHIN REACH. NO S/S OF RESPIRATORY DISTRESS OR DISCOMFORT NOTED AT THIS TIME. WILL CONTINUE TO MONITOR.
--- NOTE | 2019-10-21 19:16 | NUR ---
REPORT GIVEN TO HAMMERER TAB NURSE IGOR-RN. PT STABLE AT THIS TIME.
--- NOTE | 2019-10-21 19:18 | NUR ---
RECEIVED ENDORSEMENT FROM AM SHIFT RN. PATIENT IS SITTING IN BED, CITIZEN OF [place] SPEAKING. ABLE TO MAKE NEEDS KNOWN. RESPIRATION EVEN AND UNLABORED. DENIES PAIN. ASSESSMENT DONE. WITH IV SITE AT LFA 20 G, INFUSING IVF AT 20CC/HR. PLAN OF CARE WAS DISCUSSED. FALL RISK PROTOCOL ON PLACE. CALL LIGHT WITHIN REACH. WILL CONTINUE TO MONITOR.
[2019-10-21 20:00] VITALS: BP 110/66
--- NOTE | 2019-10-21 20:28 | NUR ---
METOPROLOL WASTED, WITNESSED BY OFELIA NICHOLS. BP 110/66. HR 94.
--- NOTE | 2019-10-21 22:31 | NUR ---
PATIENT IS SLEEPING. NO SOB NOTED.
[2019-10-22] VITALS: BP 118/70
[2019-10-22] MEDS: PIPERACILLIN/TAZOBACTAM 2.25 GM in DEXTROSE 5% 50 ML IV SCH ×4 (00:30→18:26)
--- NOTE | 2019-10-22 00:30 | NUR ---
ADMINISTERED ZOSYN 2.25G IV. NO A/R NOTED. TOLERATED WELL.
--- NOTE | 2019-10-22 02:17 | NUR ---
PATIENT IS ASLEEP AT THIS TIME. RESPIRATION EVEN AND UNLABORED.
[2019-10-22 04:00] VITALS: BP 132/72
[2019-10-22 06:05] LABS: BASOPHILS % (AUTO) 0.4 % (0.0-2.0); EOSINOPHILS # (AUTO) 0.3 K/uL (0-0.4); EOSINOPHILS % (AUTO) 2.8 % (0.0-4.0); HEMATOCRIT 25.6 % (36-48); HEMOGLOBIN 8.3 g/dL (12.0-16.0); LYMPHOCYTES # (AUTO) 2.3 K/uL (2.5-16.5); LYMPHOCYTES % (AUTO) 24.8 % (20.5-51.1); MEAN CORPUSCULAR HEMOGLOBIN 27 pg (27-31); MEAN CORPUSCULAR HGB CONC 32 g/dL (33-37); MEAN CORPUSCULAR VOLUME 83.8 fL (80-94); MONOCYTES # (AUTO) 1.1 K/uL (0.8-1.0); NEUTROPHILS # (AUTO) 5.5 K/uL (1.8-7.7); PLATELET COUNT (AUTO) 208 K/uL (140-450); RED BLOOD CELL COUNT(AUTO) 3.05 MIL/uL (4.20-5.40); RED CELL DISTRIBUTION WIDTH 18.9 % (11.6-13.7); WHITE BLOOD COUNT (AUTO) 9.1 K/uL (4.8-10.8)
[2019-10-22 06:19] LABS: ANION GAP 14.4 (8-16); CARBON DIOXIDE 23.1 mmol/L (21-32); CHLORIDE 104 mmol/L (98-107); CREATININE 0.8 mg/dL (0.6-1.3); GLUCOSE 129 mg/dL (74-106); POTASSIUM 3.5 mmol/L (3.5-5.1); SODIUM SERUM 138 mmol/L (136-145); UREA NITROGEN, BLOOD 9 mg/dL (7-18)
[2019-10-22] MEDS: NACL 0.9% 1,000 ML IV SCH (06:32)
--- NOTE | 2019-10-22 07:25 | NUR ---
PATIENT IS IN STABLE CONDITION. ENDORSED TO AM SHIFT RN FOR CONTINUITY OF CARE.
[2019-10-22 08:00] VITALS: BP 126/63
[2019-10-22 08:00] LABS: MAGNESIUM 1.9 mg/dL (1.8-2.4); PHOSPHORUS 4.2 mg/dL (2.5-4.9)
[2019-10-22] MEDS: SODIUM PHOS / POTASSIUM PHOS 1 PKT PDR PO SCH ×2 (09:21→20:37)
[2019-10-22] MEDS: ASCORBIC ACID 500 MG TAB PO SCH (09:22)
[2019-10-22] MEDS: ISOSORBIDE MONONITRATE 30 MG TABER PO SCH (09:22)
[2019-10-22] MEDS: amLODIPine 5 MG TAB PO SCH (09:22)
[2019-10-22] MEDS: FERROUS SULFATE 325 MG TABEC PO SCH ×2 (09:22→16:28)
--- NOTE | 2019-10-22 09:22 | NUR ---
GAVE ORDERED DUE MEDICATION AT THIS TIME. PATIENT IN STABLE CONDITION. BED IN LOW POSITION. CALL LIGHT AT BEDSIDE. BED ALARM ON. WILL CONTINUE TO MONITOR.
[2019-10-22] MEDS: FUROSEMIDE 20 MG TAB PO SCH (09:23)
[2019-10-22] MEDS: METOPROLOL 25 MG TAB PO SCH ×2 (09:23→20:36)
--- NOTE | 2019-10-22 09:49 | NUR ---
X-RAY AT BEDSIDE AT THIS TIME FOR CHEST X-RAY. PATIENT IN STABLE CONDITION.
--- NOTE | 2019-10-22 11:33 | NUR ---
ASSISTED PATIENT TO RESTROOM AT THIS TIME. HOLDS FURNITURE WHEN AMBULATING. PATIENT TOLERATED WELL. PATIENT IN STABLE CONDITION. BED IN LOW POSITION. CALL LIGHT AT BEDSIDE. BED ALARM ON. WILL CONTINUE TO MONITOR.
[2019-10-22 12:00] VITALS: BP 108/66
--- NOTE | 2019-10-22 13:14 | NUR ---
10/22/19 RD FOLLOW UP COMPLETED PLEASE REFER TO NUTRITION PROGRESS NOTE UNDER CARE ACTIVITY FOR ESTIMATED NUTRITION NEEDS. RD RECOMMENDATIONS: 1. CONTINUE RENAL MECHANICAL SOFT DIET TOLERATED 2. CONTINUE ENSURE CLEAR TID 3. ENCOURAGE PO INTAKE 4. RD TO FOLLOW-UP 2-3 DAYS, HIGH RISK SAMMY TAN MBA, RD
--- NOTE | 2019-10-22 14:26 | NUR ---
PATIENT SLEEPING AT THIS TIME. RESPIRATIONS EVEN AND UNLABORED. PATIENT IN STABLE CONDITION. BED IN LOW POSITION. CALL LIGHT AT BEDSIDE. BED ALARM ON. WILL CONTINUE TO MONITOR.
[2019-10-22 16:00] VITALS: BP 101/57
[2019-10-22] MEDS: ENOXAPARIN 60 MG/0.6 ML SYR SUBQ SCH (16:38)
--- NOTE | 2019-10-22 17:22 | NUR ---
PATIENT SITTING IN CHAIR BEDSIDE AT THIS TIME IN STABLE CONDITION. CALL LIGHT WITHIN REACH. WILL CONTINUE TO MONITOR.
--- NOTE | 2019-10-22 19:20 | NUR ---
RECEIVED ENDORSEMENT FROM AM SHIFT RN. PATIENT AO X 4, CHAIRFAST, PT IS SITTING IN BED, [place] SPEAKING. ABLE TO MAKE NEEDS KNOWN. RESPIRATION EVEN AND UNLABORED. DENIES PAIN. ASSESSMENT DONE. WITH IV SITE AT LFA 20 G, INFUSING IVF AT 20CC/HR. PLAN OF CARE WAS DISCUSSED. FALL RISK PROTOCOL ON PLACE. CALL LIGHT WITHIN REACH. WILL CONTINUE TO MONITOR.
[2019-10-22 20:00] VITALS: BP 99/52
--- NOTE | 2019-10-22 21:00 | NUR ---
PT HAS BP OF 90/52 [facility] ; HR 91; PT HAS ORDER TO HOLD LOPRESSOR FOR HR LESS THAN 100; AND SBP LESS THAN 100.
--- NOTE | 2019-10-22 23:19 | NUR ---
PT ABLE TO GO TO BEDSIDE COMMODE, CHAIRFAST, URINE NOTED, MAX AMOUNT, CLEAR. PT HAS NO DIFFUCULTY IN URINATION. PT ALSO HAS GOOD ORAL INTAKE.
[2019-10-23] VITALS: BP 101/32
--- NOTE | 2019-10-23 02:15 | NUR ---
PT WENT TO BATHROOM COMMODE, STANDBY ASSIST, PT IS ABLE TO GO TO COMMODE TO BED, UNASSISTED AND STABLE IN GAIT. URINE OUTPUT NOTED, CLEAR, MODERATE AMOUNT
[2019-10-23 04:00] VITALS: BP 101/40
--- NOTE | 2019-10-23 04:15 | NUR ---
PT SLEEPING,NO SIGNS OF RESPIRATORY DISTRESS, NO COMPLAINTS OF PAIN
[2019-10-23] MEDS: NACL 0.9% 1,000 ML IV SCH (06:32)
--- NOTE | 2019-10-23 06:32 | NUR ---
PT IN STABLE CONDITION, A AO X 4, ABLE TO AMBUL;ATE W/ STANDBY ASSIST. NO SIGNS OF RESPIRATORY DISTRESS WILL ENDORSE TO NEXT SHIFT FOR CONTINUITY OF CARE
--- NOTE | 2019-10-23 06:33 | NUR ---
RECEIVED REPORT FROM SECURITY INCIDENT RESPONSE ENGINEER NURSE FORD-OFELIA. PT SLEEPING IN BED, AOX4- CITIZEN OF [place] SPEAKING, ON ROOM AIR WITH LEFT AC #20G RUNNING NS @20ML/HR. S/P REMOVAL OF MAXWELL CATH ON 10/20/2019. AMBULATORY WITH ASSISTANCE. CALL LIGHT WITHIN REACH. NO S/S OF RESPIRATORY DISTRESS OR DISCOMFORT NOTED AT THIS TIME. WILL CONTINUE TO MONITOR.
[2019-10-23 06:56] LABS: BASOPHILS % (AUTO) 0.4 % (0.0-2.0); EOSINOPHILS # (AUTO) 0.3 K/uL (0-0.4); EOSINOPHILS % (AUTO) 3.3 % (0.0-4.0); HEMATOCRIT 25.7 % (36-48); HEMOGLOBIN 8.2 g/dL (12.0-16.0); LYMPHOCYTES # (AUTO) 1.9 K/uL (2.5-16.5); MEAN CORPUSCULAR HEMOGLOBIN 27 pg (27-31); MEAN CORPUSCULAR HGB CONC 32 g/dL (33-37); MEAN CORPUSCULAR VOLUME 84.4 fL (80-94); MONOCYTES % (AUTO) 11.4 % (1.7-9.3); NEUTROPHILS # (AUTO) 5.7 K/uL (1.8-7.7); NEUTROPHILS % (AUTO) 63.9 % (42.2-75.2); PLATELET COUNT (AUTO) 227 K/uL (140-450); RED BLOOD CELL COUNT(AUTO) 3.05 MIL/uL (4.20-5.40); RED CELL DISTRIBUTION WIDTH 19.2 % (11.6-13.7); WHITE BLOOD COUNT (AUTO) 8.9 K/uL (4.8-10.8)
[2019-10-23 07:12] LABS: ANION GAP 11.1 (8-16); CARBON DIOXIDE 26.7 mmol/L (21-32); CHLORIDE 104 mmol/L (98-107); CREATININE 0.9 mg/dL (0.6-1.3); GLUCOSE 122 mg/dL (74-106); POTASSIUM 3.8 mmol/L (3.5-5.1); SODIUM SERUM 138 mmol/L (136-145); UREA NITROGEN, BLOOD 7 mg/dL (7-18)
[2019-10-23 07:20] LABS: MAGNESIUM 1.8 mg/dL (1.8-2.4); PHOSPHORUS 3.3 mg/dL (2.5-4.9)
[2019-10-23 08:00] VITALS: BP 145/77
[2019-10-23] MEDS: SODIUM PHOS / POTASSIUM PHOS 1 PKT PDR PO SCH (08:46)
[2019-10-23] MEDS: ASCORBIC ACID 500 MG TAB PO SCH (08:46)
[2019-10-23] MEDS: FERROUS SULFATE 325 MG TABEC PO SCH ×2 (08:47→17:00)
[2019-10-23] MEDS: METOPROLOL 25 MG TAB PO SCH (08:47)
[2019-10-23] MEDS: ISOSORBIDE MONONITRATE 30 MG TABER PO SCH (08:47)
[2019-10-23] MEDS: FUROSEMIDE 20 MG TAB PO SCH (08:47)
--- NOTE | 2019-10-23 08:47 | NUR ---
SCHEDULED MEDICATIONS GIVEN AND TOLERATED WELL. COLACE GIVEN FOR CONSTIPATION. PT TOLERATED WELL. CALL LIGHT WITHIN REACH. NO S/S OF RESPIRATORY DISTRESS OR DISCOMFORT NOTED AT THIS TIME. WILL CONTINUE TO MONITOR.
[2019-10-23] MEDS: amLODIPine 5 MG TAB PO SCH (08:48)
--- NOTE | 2019-10-23 11:00 | NUR ---
PT RESTING IN BED. CALL LIGHT WITHIN REACH. NO S/S OF RESPIRATORY DISTRESS OR DISCOMFORT NOTED AT THIS TIME. WILL CONTINUE TO MONITOR.
--- NOTE | 2019-10-23 12:28 | NUR ---
STRAP SETTER NOTE: SW WAS UNABLE TO MEET WITH PATIENT AT BEDSIDE DUE TO MEDICAL CONDITION. SW CONTACTED PATIENT'S GRANDDAUGHTER ABDIRAHMAN DU [phone]. SW LEFT . SW WILL FOLLOW UP.
--- NOTE | 2019-10-23 13:00 | NUR ---
PT RESTING IN THE CHAIR. CALL LIGHT WITHIN REACH. NO S/S OF RESPIRATORY DISTRESS OR DISCOMFORT NOTED AT THIS TIME. WILL CONTINUE TO MONITOR.
[2019-10-23] MEDS ORDERED: PIPE1SOL IV (13:06)
[2019-10-23] MEDS: ENOXAPARIN 60 MG/0.6 ML SYR SUBQ SCH (15:00)
--- NOTE | 2019-10-23 15:00 | NUR ---
PT RESTING IN BED. CALL LIGHT WITHIN REACH. NO S/S OF RESPIRATORY DISTRESS OR DISCOMFORT NOTED AT THIS TIME. WILL CONTINUE TO MONITOR.
[2019-10-23 16:20] VITALS: BP 111/77
--- NOTE | 2019-10-23 17:00 | NUR ---
PT REFUSED FERROUS SULFATE STATING THAT THE MEDICATION IS WHAT IS CAUSING HER CONSTIPATION. CALL LIGHT WITHIN REACH. NO S/S OF RESPIRATORY DISTRESS OR DISCOMFORT NOTED AT THIS TIME. WILL CONTINUE TO MONITOR.
--- NOTE | 2019-10-23 19:09 | NUR ---
PT TAKEN BY TRANSPORT [facility] TO [facility] IN STABLE CONDITION.
== END 2019-10-23 19:05 | DRG 314 ==
LOC: MED 07:24 → MMU 09:56 → EEVIPCON 09:56 → MMU 11:11 → MTU 10-22 20:07
PROVIDERS: ADMIT General Practice; ATTEND General Practice
PROC: 0JPT0WZ Removal of Totally Implantable Vascular Access Device from Trunk Subcutaneous Tissue and Fascia, Open Approach (ICD-10-PCS; principal; 2019-10-20 13:00)
DX: T80.211A Bloodstream infection due to central venous catheter, initial encounter (principal); A41.51 Sepsis due to Escherichia coli [E. coli]; E43 Unspecified severe protein-calorie malnutrition; J96.00 Acute respiratory failure, unspecified whether with hypoxia or hypercapnia; J18.9 Pneumonia, unspecified organism; R65.20 Severe sepsis without septic shock; G93.41 Metabolic encephalopathy; N17.0 Acute kidney failure with tubular necrosis; C25.9 Malignant neoplasm of pancreas, unspecified; C78.00 Secondary malignant neoplasm of unspecified lung; C78.7 Secondary malignant neoplasm of liver and intrahepatic bile duct; N39.0 Urinary tract infection, site not specified; N13.30 Unspecified hydronephrosis; D68.9 Coagulation defect, unspecified; Z96.653 Presence of artificial knee joint, bilateral; Y84.8 Other medical procedures as the cause of abnormal reaction of the patient, or of later complication, without mention of misadventure at the time of the procedure; I10 Essential (primary) hypertension; R47.02 Dysphasia; E87.6 Hypokalemia; E83.39 Other disorders of phosphorus metabolism; E83.42 Hypomagnesemia; D63.8 Anemia in other chronic diseases classified elsewhere; Z86.711 Personal history of pulmonary embolism; Z87.440 Personal history of urinary (tract) infections; Z88.6 Allergy status to analgesic agent; Z90.49 Acquired absence of other specified parts of digestive tract; Z92.21 Personal history of antineoplastic chemotherapy; Z88.5 Allergy status to narcotic agent; Z68.24 Body mass index [BMI] 24.0-24.9, adult; Z20.828 Contact with and (suspected) exposure to other viral communicable diseases
CPT/HCPCS: 36415; 36600; 71045; 71250; 80048; 80053; 81001; 82150; 82272; 82550; 82607; 82728; 82746; 82803; 82948; 83036; 83540; 83605; 83615; 83690; 83735; 83880; 84100; 84134; 84439; 84443; 84484; 85025; 85045; 85379; 85384; 85610; 85651; 85730; 86140; 87040; 87070; 87081; 87086; 87186; 87420; 87804; 92610; 93005; 96365; 96367; 96375; 99291; J0456; J0696; J1650; J2001; J2270; J2405; J2543; J2704; J2916; J3370; J3475; J3480; J3490; J7030; J7060; Q0092; U0003-CS

== ENCOUNTER 2019-10-31 02:38 | Inpatient (IN) | payer OTHER ==
[~2019-10-31] VITALS: Ht 144.8 cm; Wt 56.7 kg
[~2019-10-31 02:38] MED LIST changes: +FURO-572 PO; +PIPE1SOL IV; +RIVA20TA PO
[2019-10-31 02:53] VITALS: BP 116/60
--- NOTE | 2019-10-31 02:57 | NUR ---
PT TAKEN TO BED 4 VIA WHEELCHAIR
--- NOTE | 2019-10-31 03:05 | NUR ---
Dr. Saenz examining patient.
--- NOTE | 2019-10-31 03:05 | NUR ---
84 Y/O FEMALE BROUGHT INTO ER BY GRANDDAUGHTER FOR LEFT HAND EDEMA X 3 DAYS 10/10 PAIN. GRANDDAUGHTER STATES PT WAS IN SNF AND HAD AN IV IN THE LEFT HAND, AND SINCE COMING HOME HAND, AND ARM HAVE BEEN SWOLLEN, WITH 10/10 PAIN WITH ROM. LEFT HAND IS WARM, AND TTP. PT IS AFEBRILE, NO C/O NAUSEA, VOMITING, DIARRHEA. R/R EQUAL ,AND UNLABORED. O2: 97% ON ROOM AIR. GRANDDAUGHTER AT BEDSIDE, PT LAYING IN BED SIDERAIL X1, BED IN LOW POSITION, WILL CONTINUE TO MONITOR. ALLERGY: ASPIRIN PMH: STAGE 4 PANCREATIC CANCER, HTN, HYPOTHYROIDISM, ANXIETY
[2019-10-31] MEDS ORDERED: NACL 0.9% 1,000 ML IV ONE (03:15)
[2019-10-31] MEDS ORDERED: MORPHINE SULFATE 2 MG/ML SYR IVP ONE (03:25)
[2019-10-31] MEDS ORDERED: VANCOMYCIN 1,000 MG in DEXTROSE 5% 250 ML IV ONE (03:25)
--- NOTE | 2019-10-31 03:32 | NUR ---
Respiratory Therapist at bedside for respiratory intervention.
[2019-10-31 03:39] LABS: BASOPHILS # (AUTO) 0.1 K/uL (0.00-0.22); BASOPHILS % (AUTO) 0.6 % (0.0-2.0); EOSINOPHILS # (AUTO) 0.2 K/uL (0-0.4); EOSINOPHILS % (AUTO) 1.4 % (0.0-4.0); HEMATOCRIT 27.4 % (36-48); HEMOGLOBIN 8.7 g/dL (12.0-16.0); LYMPHOCYTES # (AUTO) 1.9 K/uL (2.5-16.5); LYMPHOCYTES % (AUTO) 14.7 % (20.5-51.1); MEAN CORPUSCULAR HEMOGLOBIN 27 pg (27-31); MEAN CORPUSCULAR HGB CONC 32 g/dL (33-37); MEAN CORPUSCULAR VOLUME 84.6 fL (80-94); MONOCYTES # (AUTO) 0.8 K/uL (0.8-1.0); MONOCYTES % (AUTO) 6.3 % (1.7-9.3); NEUTROPHILS # (AUTO) 9.9 K/uL (1.8-7.7); PLATELET COUNT (AUTO) 376 K/uL (140-450); RED BLOOD CELL COUNT(AUTO) 3.24 MIL/uL (4.20-5.40); RED CELL DISTRIBUTION WIDTH 19.6 % (11.6-13.7); WHITE BLOOD COUNT (AUTO) 12.9 K/uL (4.8-10.8)
[2019-10-31 03:51] LABS: ALBUMIN 2.4 g/dL (3.4-5.0); ANION GAP 13.9 (8-16); ASPARTATE AMINOTRANSFERASE 35 U/L (15-37); CHLORIDE 96 mmol/L (98-107); GLUCOSE 120 mg/dL (74-106); POTASSIUM 3.9 mmol/L (3.5-5.1); SODIUM SERUM 131 mmol/L (136-145); TOTAL BILIRUBIN 0.4 mg/dL (0.0-1.0); UREA NITROGEN, BLOOD 14 mg/dL (7-18)
[2019-10-31 03:53] LABS: PROTHROMBIN TIME 10.3 secs (10.8-13.4)
[2019-10-31] MEDS ORDERED: VANCOMYCIN 1,000 MG VIAL ONE (03:59)
[2019-10-31] MEDS: NACL 0.9% 1,000 ML IV SCH ×2 (04:27→23:26)
[2019-10-31] MEDS ORDERED: ACETAMINOPHEN 325 MG TAB PO PRN (04:30)
[2019-10-31] MEDS ORDERED: MORPHINE SULFATE 2 MG/ML SYR IVP PRN ×2 (04:30→04:55)
[2019-10-31] MEDS ORDERED: VANCOMYCIN PER PHARMACY MC PRN (04:30)
[2019-10-31] MEDS ORDERED: ONDANSETRON 4 MG/2 ML VIAL IM/IVP PRN (04:30)
[2019-10-31] MEDS ORDERED: DOCUSATE SODIUM 100 MG GELCAP PO PRN (04:30)
--- NOTE | 2019-10-31 04:30 | NUR ---
X-Ray at bedside.
--- NOTE | 2019-10-31 04:37 | NUR ---
Dr. Jenkins examining patient.
[2019-10-31] MEDS ORDERED: DICYCLOMINE 10 MG CAP PO SCH (05:00)
[2019-10-31 05:38] LABS: CHOL/HDL RATIO 2.5 (1-4.5); PHOSPHORUS 3.5 mg/dL (2.5-4.9)
--- NOTE | 2019-10-31 05:45 | NUR ---
PT BROUGHT IN FROM ER VIA GURNEY, PT UNABLE TO AMBULATE TO OTHER BED. TRANSFERRED BY TEAM WITHOUT INCIDENT. RECEIVED REPORT FROM ER NURSE. PT AWAKE AND ALERT, MAKES NEEDS KNOWN, FOLLOWS COMMANDS. ON ROOM AIR, LUNG SOUNDS CLEAR, NO SIGNS OF COUGH OR CONGESTION. SATURATIONS 98%. S1S2, SR ON MONITOR. BP STABLE. SKIN WARM AND DRY, AFEBRILE. LEFT HAND INTACT BUT EDEMATOUS, RED, AND VERY TENDER. PT SCREAMS WITH VERY LIGHT TOUCH. ALL OTHER AREAS INTACT. THERE IS A RIGHT UPPER CHEST S/P TUNNELED CATH REMOVAL. STITCHES INTACT, SKIN INTACT. ABDOMEN SOFT AND TENDER TO TOUCH. PT HAS HX: STAGE 4 PANCREATIC CANCER. RIGHT FOREARM 22G, FLUSHED AND PATENT WITHOUT SYMPTOMS. IV BOLUS INFUSING. PT IS CONTINENT, WAS GIVEN BEDPAN IN ER. ORIENTED TO CALL LIGHT AND TREATMENT PLAN. BED LOCKED AND IN LOWEST POSITION, WILL ENDORSE TO DAYSHIFT NURSE.
--- NOTE | 2019-10-31 06:02 | NUR ---
Patient will be admitted to care of DR. MOSS. Admited to TELE. Will go to room 122 B. Belongings list completed. Report to OFELIA SMALLWOOD.
--- NOTE | 2019-10-31 06:30 | NUR ---
PT REQUESTING TO USE THE RESTROOM, ATTEMPTED TO ASSIST PT TO GET UP AND USE RESTROOM BUT PATIENT STARTED SCREAMING IN PAIN AND GRABBING LEFT SHOULDER. REORIENTED PATIENT TO JAMIE PADS AND BED ADAME. PT TRIED TO GET UP ON HER OWN BUT WAS C/O TOO MUCH PAIN. HAD A OVERHAULER BUS TRUCK REORIENT HER TO JAMIE PADS-IN CHINESE, PT VERBALIZED UNDERSTANDING. WILL CHECK ORDERS, IV MORPHINE WAS ALREADY GIVEN IN ER.
[2019-10-31 07:01] LABS: APPEARANCE,URINE CLEAR (CLEAR); BILIRUBIN,URINE NEGATIVE (NEGATIVE); BLOOD, URINE NEGATIVE (NEGATIVE); COLOR,URINE YELLOW (YELLOW); LEUKOCYTE ESTERASE ,URINE TRACE (NEGATIVE); NITRITE, URINE NEGATIVE (NEGATIVE); UGLUCOSE NEGATIVE (NEGATIVE)
[2019-10-31 07:13] LABS: RBC,URINE NONE SEEN /HPF (0-5); WBC,URINE 0-5 /HPF (0-5)
--- NOTE | 2019-10-31 07:20 | NUR ---
RECEIVED BEDSIDE SHIFT REPORT FROM IMPORT/EXPORT CLERK NURSE FOR CONTINUATION OF CARE.
[2019-10-31 08:00] VITALS: BP 122/80
--- NOTE | 2019-10-31 09:30 | NUR ---
PATIENT HAS BEEN SCREENED AND CATEGORIZED HIGH NUTRITION RISK. PATIENT WILL BE SEEN WITHIN 1-2 DAYS OF ADMISSION. 10/31/19-11/01/[address]
--- NOTE | 2019-10-31 09:30 | NUR ---
MEDICATIONS ADMINISTERED, TOLERATED WELL, COMPLAINS OF ABDOMINAL AND RIGHT HAND PAIN. RIGHT HAND TENDER TO TOUCH AND SWOLLEN. PAIN MEDICATIONS ADMINISTERED. WILL CONTINUE TO MONITOR.
--- NOTE | 2019-10-31 10:24 | NUR ---
CAROUSEL OPERATOR NOTE: SW CONTACTED GRANDDAUGHTER ABDIRAHMAN DU [phone] TO COMPLETE ASSESSMENT. CALL WAS UNSUCCESSFUL. SW WILL FOLLOW UP.
[2019-10-31] MEDS: ISOSORBIDE MONONITRATE 30 MG TABER PO SCH (10:34)
[2019-10-31] MEDS: FUROSEMIDE 20 MG TAB PO SCH (10:35)
[2019-10-31] MEDS: METOPROLOL 25 MG TAB PO SCH ×2 (10:35→20:53)
[2019-10-31] MEDS: HYDROmorphone 1 MG/ML AMP IVP PRN ×2 (10:36→21:03)
[2019-10-31] MEDS: amLODIPine 5 MG TAB PO SCH (10:36)
--- NOTE | 2019-10-31 11:22 | NUR ---
PATIENT IS RESTING IN BED. Addendum: 10/31/19 at 1124 by Doyle Thompson RN BED IS IN LOW POSITION, EDUCATED LENS MOLDER LIGHT, VERBALIZED UNDERSTANDING. AAOX4. BED IN LOW POSITION. WILL CONTINUE TO MONITOR.
--- NOTE | 2019-10-31 11:30 | NUR ---
REPORT GIVEN TO ESTELLA GILBERT FOR CONTINUATION OF CARE.
--- NOTE | 2019-10-31 11:31 | NUR ---
RECEIVED REPORT FROM DAY SHIFT RN GODFREY FOR CONTINUITY OF CARE. PT IN STABLE CONDITION AT THIS TIME. WILL ROUND FREQUENTLY ON PT THROUGHOUT THE SHIFT.
[2019-10-31 11:39] VITALS: BP 122/80
--- NOTE | 2019-10-31 13:24 | NUR ---
PT RESTING IN BED. ALL NEEDS MET. WILL CONTINUE TO ROUND FREQUENTLY ON PT. BED IN LOW POSITION, CALL LIGHT WITHIN REACH.
[2019-10-31] MEDS ORDERED: MELATONIN 3 MG TAB PO PRN (14:25)
[2019-10-31] MEDS ORDERED: ALBUTEROL SULFATE/IPRATROPIU 3 ML SOL IH PRN (14:30)
[2019-10-31] MEDS ORDERED: FUROSEMIDE 40 MG/4 ML VIAL IVP SCH (14:34)
--- NOTE | 2019-10-31 15:20 | NUR ---
DC [age] YRS OLD FEMALE PATIENT WAS ADMITTED FROM HOME WITH A DX OF CELLULITIS OF THE LEFT HAND. PT HAS A HX OF METASTATIC PANCREATIC CANCER, HTN, INSOMNIA . PT IS CURRENTLY RECEIVED CHEMOTHERAPY AT [facility] UNDER THE CARE OF DR COLLAZO . CT ABD/PELVIS SHOWED NEW LIKELY METASTATIC LESION OF THE LIVER. BLOOD AND URINE CULTURE PENDING STARTED IVF, IV ABX VANCOMYCIN ,ZOFRAN FOR NAUSEA AND IV DILAUDID FOR PAIN. DC PLAN TO GO HOME WHEN STABLE. CM TO FOLLOW Addendum: 11/03/19 at 1221 by Lisa Kirkland CM DC PLANING: PT HAS A DC ORDER TO GO HOME WITH HOSPICE. [facility] ACCEPTED PATIENT, SPOKE WITH CHYNA STATED, ONCE THEY DELIVER THE EQUIPMENT WILL REGISTERED CLINICAL DIETITIAN PATIENT. CM TO FOLLOW Addendum: 11/03/19 at 1606 by Lisa Kirkland CM DC PLANING: PT IS ACCEPTED WITH [facility] ,SPOKE WITH CHYNA , REGISTERED CLINICAL DIETITIAN TIME BETWEEN 6-7 PM NOTIFIED TREVON GILBERT
--- NOTE | 2019-10-31 15:40 | NUR ---
PT ASLEEP. ALL NEEDS MET.
--- NOTE | 2019-10-31 15:52 | NUR ---
10/31/19 RD INITIAL ASSESSMENT COMPLETED PLEASE REFER TO NUTRITION ASSESSMENT UNDER CARE ACTIVITY FOR ESTIMATED NUTRITIONAL NEEDS. 1. CONTINUE CARDIAC MECHANICAL SOFT CHOPPED DIET TOLERATED 2. RECOMMEND ENSURE DAILY 3. ENCOURAGE PO INTAKE 4. RD TO FOLLOW-UP 2-3 DAYS, HIGH RISK ALEXANDRA MIN, RD
[2019-10-31 16:00] VITALS: BP 113/54
[2019-10-31] MEDS: HYDROcodone/APAP 5/325 MG 1 TAB TAB PO PRN (16:00)
[2019-10-31] MEDS: RIVAROXABAN 10 MG TAB PO SCH (17:47)
--- NOTE | 2019-10-31 17:54 | NUR ---
PT EATING DINNER. ALL NEEDS MET. WILL CONTINUE TO ROUND FREQUENTLY ON PT.
--- NOTE | 2019-10-31 19:20 | NUR ---
BEDSIDE REPORT WAS RECEIVED FROM DAY SHIFT NURSE FOR CONTINUITY OF CARE. PT IS LAYING IN SEMI FOWLERS POSITION WATCHING TV. ALERT AND AWAKE X 4. RESPIRATIONS ARE EVEN AND UNLABORED. SHE IS CURRENTLY ON 2 LITERS NC WITH NO SIGNS OF DISTRESS. PT DENIES PAIN. THE SKIN IS WARM, DRY, AND INTACT. SHE HAS CELLULITIS OF THE LEFT HAND AND THE SKIN IS INTACT. SHE HAS A RIGHT FOREARM 22 GAUGE RUNNING NS AT 20 ML PER HOUR PER DOCTORS ORDER. THE PT IS ON FLUID RESTRICTION PER DOCTORS ORDER OF 1.5 LITERS PER DAY AND SHE IS ON STRICT I&O'S. PT IS ON A CARDIAC DIET. BED IS IN LOWEST POSITION AND CALL LIGHT IS WITHIN REACH. PT IS STABLE AT THIS TIME, WILL CONTINUE TO MONITOR.
--- NOTE | 2019-10-31 19:38 | NUR ---
ENDORSED PT TO HEATER WORKER FOR CONTINUITY OF CARE. PT IN STABLE CONDITION A THIS TIME.
[2019-10-31 20:00] VITALS: BP 94/58
[2019-10-31] MEDS ORDERED: ZOLPIDEM 5 MG TAB PO SCH (21:00)
--- NOTE | 2019-10-31 21:03 | NUR ---
PATIENT FACIAL GRIMACING AND VERBALIZED LEFT HAND PAIN 7/10, ADMINISTERED DILAUDID ORDERED PRN. WILL REASSESS LATER.
--- NOTE | 2019-10-31 22:00 | NUR ---
JOAQUIN OF PENDING SALE TO [facility] CALLED RE: ZACHARY LOBO( GRANDSON'S REQUEST TO COME HOME, TO DISCUSS CARE PLANS W/ DOCTORS) GRANDSON IS WITH . IF DR. VARGAS IS ABLE TO CALL [facility] NO: [phone] RE: CASE NO: [id number] TO GIVE RECOMMENDATION FOR FAMILY TO BE WITH PATIENT DESPITE HAVING HOSPITAL VISITORS RESTRICTIONS IN PLACE ([employer] POLICIES). ALSO IF DR. VARGAS CAN CALL ALSO GRANDSON IN HIS CELLPHONE NO: [phone]
--- NOTE | 2019-10-31 22:10 | NUR ---
CHECKED ON PATIENT,PT SLEEPING, NO RESPIRATORY DISTRESS NOTED. NO FACIAL GRIMACING NOTED.
[2019-11-01] VITALS: BP 109/56
--- NOTE | 2019-11-01 03:07 | NUR ---
PT SLEEPING, NO RESPIRATORY DISTRESS NO FACIAL GRIMACING
[2019-11-01 04:00] VITALS: BP 134/65
--- NOTE | 2019-11-01 05:00 | NUR ---
PT IS SLEEPING AND CHEST RISE IS SYMMETRICAL. THERE APPEARS TO BE NO APPARENT SIGNS OF DISTRESS. PT IS EASILY AROUSED WITH NOISE OR BY CALLING HER NAME. PT IS IN STABLE CONDITION.
[2019-11-01] MEDS: VANCOMYCIN 750 MG in DEXTROSE 5% 250 ML IV SCH (05:31)
--- NOTE | 2019-11-01 06:25 | NUR ---
PT A A O X 4, BEDREST, NO COMPLAINTS OF PAIN. NOT IN RESPIRATORY DISTRESS. PT IN STABLE CONDITION AT THIS TIME. WILL ENDORSE TO NEXT SHIFT FOR CONTINUITY OF CARE.
[2019-11-01 06:43] LABS: BASOPHILS % (AUTO) 0.5 % (0.0-2.0); EOSINOPHILS # (AUTO) 0.2 K/uL (0-0.4); EOSINOPHILS % (AUTO) 2.7 % (0.0-4.0); HEMATOCRIT 23.6 % (36-48); HEMOGLOBIN 7.7 g/dL (12.0-16.0); LYMPHOCYTES # (AUTO) 2.1 K/uL (2.5-16.5); LYMPHOCYTES % (AUTO) 25.1 % (20.5-51.1); MEAN CORPUSCULAR HEMOGLOBIN 28 pg (27-31); MEAN CORPUSCULAR HGB CONC 33 g/dL (33-37); MEAN CORPUSCULAR VOLUME 84.2 fL (80-94); MONOCYTES # (AUTO) 0.7 K/uL (0.8-1.0); MONOCYTES % (AUTO) 8.4 % (1.7-9.3); NEUTROPHILS # (AUTO) 5.3 K/uL (1.8-7.7); NEUTROPHILS % (AUTO) 63.3 % (42.2-75.2); PLATELET COUNT (AUTO) 318 K/uL (140-450); RED BLOOD CELL COUNT(AUTO) 2.81 MIL/uL (4.20-5.40); RED CELL DISTRIBUTION WIDTH 19.9 % (11.6-13.7); WHITE BLOOD COUNT (AUTO) 8.3 K/uL (4.8-10.8)
--- NOTE | 2019-11-01 07:00 | NUR ---
REPORT GIVEN FROM MANAGER ENTERPRISE NURSE FORD-OFELIA. PT RESTING IN BED, AOX4- [place]ER[place] SPEAKING, ON 2L/NC WITH RIGHT AC #22G RUNNING NS @ 20ML/HR. DISCUSSED PLAN OF CARE AND PT VERBALIZED UNDERSTANDING. CALL LIGHT WITHIN REACH. NO S/S OF RESPIRATORY DISTRESS OR DISCOMFORT NOTED AT THIS TIME. WILL CONTINUE TO MONITOR.
[2019-11-01 07:07] LABS: ANION GAP 11.5 (8-16); CARBON DIOXIDE 25.2 mmol/L (21-32); CHLORIDE 101 mmol/L (98-107); CREATININE 0.9 mg/dL (0.6-1.3); GLUCOSE 107 mg/dL (74-106); MAGNESIUM 1.9 mg/dL (1.8-2.4); PHOSPHORUS 3.9 mg/dL (2.5-4.9); POTASSIUM 3.7 mmol/L (3.5-5.1); SODIUM SERUM 134 mmol/L (136-145); UREA NITROGEN, BLOOD 18 mg/dL (7-18)
[2019-11-01] MEDS ORDERED: DICYCLOMINE 10 MG CAP PO PRN (07:45)
[2019-11-01 08:00] VITALS: BP 123/71
[2019-11-01] MEDS: METOPROLOL 25 MG TAB PO SCH ×3 (09:00→21:53)
[2019-11-01] MEDS: amLODIPine 5 MG TAB PO SCH (09:00)
[2019-11-01] MEDS: FUROSEMIDE 20 MG TAB PO SCH (09:44)
[2019-11-01] MEDS: ISOSORBIDE MONONITRATE 30 MG TABER PO SCH (09:44)
--- NOTE | 2019-11-01 09:44 | NUR ---
SCHEDULED MEDICATIONS GIVEN AND TOLERATED WELL. BP MEDS HELD 123/71, HR 89. CALL LIGHT WITHIN REACH. NO S/S OF RESPIRATORY DISTRESS OR DISCOMFORT NOTED AT THIS TIME. WILL CONTINUE TO MONITOR.
[2019-11-01 12:00] VITALS: BP 120/80
--- NOTE | 2019-11-01 12:00 | NUR ---
PT RESTING IN BED SLEEPING. CALL LIGHT WITHIN REACH. NO S/S OF RESPIRATORY DISTRESS OR DISCOMFORT NOTED AT THIS TIME. WILL CONTINUE TO MONITOR.
--- NOTE | 2019-11-01 14:00 | NUR ---
PT RESTING IN BED. CALL LIGHT WITHIN REACH. NO S/S OF RESPIRATORY DISTRESS OR DISCOMFORT NOTED AT THIS TIME. WILL CONTINUE TO MONITOR.
--- NOTE | 2019-11-01 15:40 | NUR ---
LATE ENTRY- VANCOMYCIN IVPB DISCONTINUED AT 0602.
[2019-11-01] MEDS: DOCUSATE SODIUM 100 MG GELCAP PO SCH (16:38)
[2019-11-01] MEDS: RIVAROXABAN 10 MG TAB PO SCH (16:39)
--- NOTE | 2019-11-01 16:39 | NUR ---
SCHEDULED MEDICATIONS GIVEN AND TOLERATED WELL. CALL LIGHT WITHIN REACH. NO S/S OF RESPIRATORY DISTRESS OR DISCOMFORT NOTED AT THIS TIME. WILL CONTINUE TO MONITOR.
--- NOTE | 2019-11-01 19:05 | NUR ---
RECD. RESTING IN BED, AWAKE, A/OX4 RESPIRATION EVEN AND UNLABORED. WATCHING TV. K-RIDER INFUSING AT 68 ML/HR LEFT HAND G24, SALINE LOCK AT THE RIGHT AC G20, PATENT AND INTACT. AMBULATORY TO BR. PLAN OF CARE FOR THE NIGHT DISCUSSED. VERBALIZED UNDERSTANDING. DENIES PAIN 0/10.
--- NOTE | 2019-11-01 19:06 | NUR ---
Patient's Plan of Care was discussed and reviewed with JEFFERY REYES, PATIENT ALERT AND ORIENTED X4,SHE IS ON ROOM AIR WITH O2 SAT 97%. AMBULATES WITH ASSIST,DENIES PAIN AT THIS TIME. IV FLUIDS RUNNING, BED IN LOW POSITION AND CALL LIGHT WITHIN REACH. WILL CONTINUE TO MONITOR
--- NOTE | 2019-11-01 21:55 | NUR ---
REFUSED METOPROLOL, STATED HER BLOOD PRESSURE IS NOT TO HIGH, BP -118/65.
[2019-11-01] MEDS: HYDROcodone/APAP 5/325 MG 1 TAB TAB PO PRN (21:59)
[2019-11-01] MEDS: NACL 0.9% 1,000 ML IV SCH (23:26)
--- NOTE | 2019-11-02 | NUR ---
SLEEPING COMFORTABLY IN BED.
--- NOTE | 2019-11-02 03:00 | NUR ---
COMFORTABLE IN BED, SLEEPING. WARM BLANKET PUT ON.
[2019-11-02 04:42] LABS: ANION GAP 12.3 (8-16); CARBON DIOXIDE 25.1 mmol/L (21-32); CHLORIDE 100 mmol/L (98-107); CREATININE 0.8 mg/dL (0.6-1.3); GLUCOSE 110 mg/dL (74-106); POTASSIUM 3.4 mmol/L (3.5-5.1); SODIUM SERUM 134 mmol/L (136-145); UREA NITROGEN, BLOOD 15 mg/dL (7-18)
[2019-11-02] MEDS: VANCOMYCIN 750 MG in DEXTROSE 5% 250 ML IV SCH (05:27)
--- NOTE | 2019-11-02 05:27 | NUR ---
VANCO THROUGH - 6.5. VANCOMYCIN 750 MG. IVPB INFUSED BY OFELIA DAVIS.
[2019-11-02] MEDS ORDERED: POTASSIUM CHLORIDE 40 MEQ, LIDOCAINE MPF 1% 25 MG in NACL 0.9% 250 ML IV ONE (06:35)
--- NOTE | 2019-11-02 07:05 | NUR ---
CONDITION REMAIN STABLE, WILL ENDORSED TO AM SHIFT NURSE FOR CONTINUITY OF CARE.
--- NOTE | 2019-11-02 07:15 | NUR ---
RECEIVED REPORT FROM SERVICE ADVOCATE CONTACT NURSE ERIC FOR CONTINUITY OF CARE. PATIENT IN STABLE CONDITION. RESPIRATIONS EVEN AND UNLABORED, O2 2L VIA NC. IV INTACT AND PATENT. SAFETY MEASURES IN PLACE. BED IN LOW POSITION. BED ALARM ON. CALL LIGHT WITHIN REACH. WILL CONTINUE TO MONITOR.
[2019-11-02 07:56] LABS: BASOPHILS # (AUTO) 0.1 K/uL (0.00-0.22); BASOPHILS % (AUTO) 1.4 % (0.0-2.0); EOSINOPHILS # (AUTO) 0.2 K/uL (0-0.4); EOSINOPHILS % (AUTO) 1.9 % (0.0-4.0); HEMATOCRIT 23.5 % (36-48); HEMOGLOBIN 7.7 g/dL (12.0-16.0); MEAN CORPUSCULAR HEMOGLOBIN 28 pg (27-31); MEAN CORPUSCULAR HGB CONC 33 g/dL (33-37); MEAN CORPUSCULAR VOLUME 84.5 fL (80-94); MONOCYTES # (AUTO) 0.8 K/uL (0.8-1.0); MONOCYTES % (AUTO) 8.7 % (1.7-9.3); PLATELET COUNT (AUTO) 327 K/uL (140-450); RED BLOOD CELL COUNT(AUTO) 2.78 MIL/uL (4.20-5.40); RED CELL DISTRIBUTION WIDTH 19.4 % (11.6-13.7); WHITE BLOOD COUNT (AUTO) 9.1 K/uL (4.8-10.8)
[2019-11-02 08:00] VITALS: BP 133/69
[2019-11-02 08:02] LABS: MAGNESIUM 2.9 mg/dL (1.8-2.4)
[2019-11-02] MEDS: FUROSEMIDE 20 MG TAB PO SCH (09:18)
[2019-11-02] MEDS: DOCUSATE SODIUM 100 MG GELCAP PO SCH (09:18)
[2019-11-02] MEDS: ISOSORBIDE MONONITRATE 30 MG TABER PO SCH (09:18)
[2019-11-02] MEDS: amLODIPine 5 MG TAB PO SCH (09:19)
[2019-11-02] MEDS: METOPROLOL 25 MG TAB PO SCH ×2 (09:19→21:02)
--- NOTE | 2019-11-02 09:45 | NUR ---
GAVE ORDERED DUE MEDICATIONS AT THIS TIME. PATIENT TOLERATED WELL. PATIENT IN STABLE CONDITION. PATIENT SITTING IN CHAIR AT BEDSIDE. CALL LIGHT WITHIN REACH. WILL CONTINUE TO MONITOR.
--- NOTE | 2019-11-02 10:33 | NUR ---
ASSISTED PATIENT TO RESTROOM AT THIS TIME. PATIENT TOLERATED WELL. WILL CONTINUE TO MONITOR.
--- NOTE | 2019-11-02 12:24 | NUR ---
GAVE LUNCH TRAY AT THIS TIME. BED IN LOW POSITION. BED ALARM ON. CALL LIGHT AT BEDSIDE. WILL CONTINUE TO MONITOR.
--- NOTE | 2019-11-02 14:04 | NUR ---
SCRAP CRUSHER NOTE: Patient's Orientation Person Situation Place Time Information Provided By ABDIRAHMAN DU - YE Remarketing Manager, Realtionship and Phone Number ABDIRAHMAN DU GRANDDAUGHTER [phone] ISABELLA JOY DAUGHTER [phone] Healthcare Power of Utility Worker Driver No Does Patient Have a POLST Yes Identifying Problems Readmission Is A Social Work Consult Needed No Mandate Report Filed No Explanation Of Identifying Problems PATIENT IS AN 84-YEAR-OLD MALE ADMITTED FOR CELLULITIS. PATIENT HAS PMHX OF PANCREATIC CARCINOMA W/ METASTASES TO THE LUNG AND LIVER. Admitted From Home Pre-Admission Level Of Functioning Status Total Care Prior Resources/Services Used In Last 12 Months [facility] Prior Resources/Service Comments PATIENT RECEIVES 84 HOURS MONTHLY FROM [facility]. Prior DME Cane Walker Wheelchair Living Situation Mobile Home Patient Had Caregiver Yes Name and Contact Number Of Designated Caregiver ISABELLA JOY - [phone] Home Support CG/Fam Able To Meet Need Explanation Of Home Support PATIENT HAS MULTIPLE FAMILY MEMBERS THAT LIVE WITH PATIENT. Financial Issues No Known Financial Issue Factors/Needs No D/C Needs Identified Pt/Rep Participated In Discharge Plan Yes Discharge Plan Comments TENTATIVE DISCHARGE PLAN IS FOR PATIENT TO RETURN HOME. NO FURTHER NEEDS IDENTIFIED. DC Plan Status Initiated
--- NOTE | 2019-11-02 15:20 | NUR ---
ASSISTED PATIENT TO BEDSIDE CHAIR. CALL LIGHT AT BEDSIDE. WILL CONTINUE TO MONITOR.
--- NOTE | 2019-11-02 16:05 | NUR ---
ASSISTED PATIENT TO BED. BED IN LOW POSITION. BED ALARM ON. CALL LIGHT AT BEDSIDE. WILL CONTINUE TO MONITOR.
[2019-11-02] MEDS: RIVAROXABAN 10 MG TAB PO SCH (18:00)
--- NOTE | 2019-11-02 19:15 | NUR ---
GAVE REPORT TO SHIP CONSTRUCTION TEACHER NURSE FOR CONTINUITY OF CARE. PATIENT IN STABLE CONDITION.
--- NOTE | 2019-11-02 19:30 | NUR ---
RECEIVED REPORT FORM ELLIE GILBERT DAYSHIFT NURSE AT BEDSIDE FOR CONTINUITY OF CARE, PT IN STABLE CONDITION.
--- NOTE | 2019-11-02 20:00 | NUR ---
PT IN BED AOX3, SKIN INTACT IV SITE RAC 22G INTACT AND ASYMPTOMATIC. PT RUNNING N/S AT 20MLS. V/S FOLLOWS: T 99.1 P 101 R 20 B/P 142/54 02 99% ON ROOM AIR, ALL FALLS PRECAUTIONS IN PLACE.
--- NOTE | 2019-11-02 20:30 | NUR ---
PT FINGERSTICK IS 202, SHE WAS GIVEN 4 UNITS COVERAGE OF HUMALOG PER S/S.
[2019-11-02] MEDS ORDERED: CRUSHER, PILL MC ONE (20:54)
--- NOTE | 2019-11-02 21:00 | NUR ---
PT GIVEN VANCOCIN IV ABT HUNG AND RUINING ORDERED, PT ALSO GIVEN ORDERED LOPRESSOR. EDUCATION REGARDING PT MEDICATION PROVIDED AT BEDSIDE, PT VERBALIZED UNDERSTANDING. ALL FALLS PRECAUTIONS IN PLACE.MADE RESIDENT TOM AND ANDRIY MADE AWARE OF PT HEMOGLOBIN, WILL CONTINUE TO MONITOR PT HH LEVEL.
[2019-11-02] MEDS: VANCOMYCIN 1,000 MG in DEXTROSE 5% 250 ML IV SCH (21:19)
[2019-11-02] MEDS: NACL 0.9% 1,000 ML IV SCH (23:26)
--- NOTE | 2019-11-03 | NUR ---
PT RESTING NON BED NO S/S OF PAIN RO DISTRESS NOTED V/S FOLLOWS: T 99 P 79 R 20 B/P 132/90 02 97% ON ROOM AIR. ALL UNIVERSAL PRECAUTIONS IN PLACE.
--- NOTE | 2019-11-03 02:00 | NUR ---
PT IN BED ASLEEP NO S/S OF PAIN OR DISTRESS NOTED. ALL FALLS PRECAUTIONS IN PLACE.
--- NOTE | 2019-11-03 04:00 | NUR ---
PT IN BED , AROUSABLE, SHE DENIES PAIN AT THIS TIME, IV SITE ON RIGHT F/A INTACT AND ASYMPTOMATIC. V/S FOLLOWS: T 97.5 P 83 R 18 B/P 121/47 02 95% ON ROOM AIR. FLUIDS RUNNING ORDERED, ALL ORDERED PRECAUTIONS IN PLACE.
--- NOTE | 2019-11-03 05:56 | NUR ---
FINGERSTICK IS 112, NO HUMALOG COVERAGE NEEDED.
[2019-11-03 06:46] LABS: BASOPHILS # (AUTO) 0.1 K/uL (0.00-0.22); BASOPHILS % (AUTO) 0.9 % (0.0-2.0); EOSINOPHILS # (AUTO) 0.1 K/uL (0-0.4); EOSINOPHILS % (AUTO) 1.5 % (0.0-4.0); HEMOGLOBIN 7.8 g/dL (12.0-16.0); LYMPHOCYTES # (AUTO) 2.2 K/uL (2.5-16.5); LYMPHOCYTES % (AUTO) 22.2 % (20.5-51.1); MEAN CORPUSCULAR HEMOGLOBIN 27 pg (27-31); MEAN CORPUSCULAR HGB CONC 33 g/dL (33-37); MEAN CORPUSCULAR VOLUME 83.6 fL (80-94); MONOCYTES # (AUTO) 0.7 K/uL (0.8-1.0); MONOCYTES % (AUTO) 6.9 % (1.7-9.3); NEUTROPHILS # (AUTO) 6.7 K/uL (1.8-7.7); NEUTROPHILS % (AUTO) 68.5 % (42.2-75.2); PLATELET COUNT (AUTO) 334 K/uL (140-450); RED BLOOD CELL COUNT(AUTO) 2.87 MIL/uL (4.20-5.40); RED CELL DISTRIBUTION WIDTH 19.4 % (11.6-13.7); WHITE BLOOD COUNT (AUTO) 9.7 K/uL (4.8-10.8)
[2019-11-03 06:55] LABS: MAGNESIUM 1.8 mg/dL (1.8-2.4)
--- NOTE | 2019-11-03 07:15 | NUR ---
RECEIVED REPORT FROM [employer]ACH[employer] ATTENDANT NURSE KEVIN FOR CONTINUITY OF CARE. PATIENT IN STABLE CONDITION RESPIRATIONS EVEN AND UNLABORED, ROOM AIR, IV INTACT AND PATENT. SAFETY MEASURES IN PLACE. BED IN LOW POSITION. BED ALARM ON. BED LOCKED. CALL LIGHT AT BEDSIDE. WILL CONTINUE TO MONITOR.
[2019-11-03 08:00] VITALS: BP 122/64
[2019-11-03] MEDS: FUROSEMIDE 20 MG TAB PO SCH (08:55)
[2019-11-03] MEDS: DOCUSATE SODIUM 100 MG GELCAP PO SCH (08:55)
[2019-11-03] MEDS: METOPROLOL 25 MG TAB PO SCH (08:56)
[2019-11-03] MEDS: ISOSORBIDE MONONITRATE 30 MG TABER PO SCH (08:56)
[2019-11-03] MEDS: amLODIPine 5 MG TAB PO SCH (08:56)
--- NOTE | 2019-11-03 09:01 | NUR ---
GAVE ORDERED DUE MEDICATIONS AT THIS TIME. PATIENT IN STABLE CONDITION.
[2019-11-03 09:23] LABS: ANION GAP 19.3 (8-16); CARBON DIOXIDE 19.6 mmol/L (21-32); CHLORIDE 100 mmol/L (98-107); CREATININE 0.9 mg/dL (0.6-1.3); GLUCOSE 115 mg/dL (74-106); POTASSIUM 3.9 mmol/L (3.5-5.1); SODIUM SERUM 135 mmol/L (136-145); UREA NITROGEN, BLOOD 15 mg/dL (7-18)
--- NOTE | 2019-11-03 11:33 | NUR ---
PATIENT SITTING AT BEDSIDE IN CHAIR AT THIS TIME. PATIENT IN STABLE CONDITION. RESPIRATIONS EVEN AND UNLABORED, ROOM AIR. CALL LIGHT AT BEDSIDE. WILL CONTINUE TO MONITOR.
--- NOTE | 2019-11-03 13:00 | NUR ---
GAVE REPORT TO ANNA FROM [facility] FOR CONTINUITY OF CARE. ALL QUESTIONS ANSWERED AT THIS TIME. ANNA VERBALIZED UNDERSTANDING OF INSTRUCTIONS.
[2019-11-03] MEDS ORDERED: SULF-59 PO (13:13)
[2019-11-03] MEDS: VANCOMYCIN 1,000 MG in DEXTROSE 5% 250 ML IV SCH (15:00)
--- NOTE | 2019-11-03 15:00 | NUR ---
PATIENT C/O PAIN AT IV SITE. NO INJURY TO SITE NOTED. REMOVED IV, LUMEN INTACT. NO ADMINISTRATION OF IV MEDICATION AT THIS TIME. PATIENT DISCHARGING TO HOME FOR HOSPICE CARE. PATIENT IN STABLE CONDITION.
[2019-11-03 16:00] VITALS: BP 104/50
--- NOTE | 2019-11-03 17:02 | NUR ---
SPOKE WITH ABDIRAHMAN DU, GRANDDAUGHTER TO INFORM FAMILY OF UPCOMING DISCHARGE. ALL QUESTIONS ANSWERED AT THIS TIME. ABDIRAHMAN VERBALIZED UNDERSTANDING OF DISCHARGE PLAN.
[2019-11-03] MEDS: RIVAROXABAN 10 MG TAB PO SCH (18:21)
--- NOTE | 2019-11-03 18:30 | NUR ---
GAVE DISCHARGE INSTRUCTIONS TO PATIENT AND TRANSPORT TEAM FOR CONTINUITY OF CARE. PATIENT AND TRANSPORT TEAM VERBALIZED UNDERSTANDING OF INSTRUCTIONS. ALL QUESTIONS ANSWERED AT THIS TIME. ID BAND REMOVED. PATIENT PLACED ON GURNEY IN STABLE CONDITION.
== END 2019-11-03 18:30 | disposition hospice, home (50) | DRG 871 ==
LOC: MED 02:38 → EEVIPCON 04:30 → MTU 04:30
PROVIDERS: ADMIT General Practice; ATTEND General Practice
DX: A41.9 Sepsis, unspecified organism (principal); E43 Unspecified severe protein-calorie malnutrition; I50.43 Acute on chronic combined systolic (congestive) and diastolic (congestive) heart failure; L03.114 Cellulitis of left upper limb; E87.1 Hypo-osmolality and hyponatremia; J98.11 Atelectasis; C25.9 Malignant neoplasm of pancreas, unspecified; C78.00 Secondary malignant neoplasm of unspecified lung; C78.7 Secondary malignant neoplasm of liver and intrahepatic bile duct; Z68.27 Body mass index [BMI] 27.0-27.9, adult; E87.8 Other disorders of electrolyte and fluid balance, not elsewhere classified; Z92.21 Personal history of antineoplastic chemotherapy; Z88.6 Allergy status to analgesic agent; F41.9 Anxiety disorder, unspecified; Z90.49 Acquired absence of other specified parts of digestive tract; Z96.653 Presence of artificial knee joint, bilateral; Z86.711 Personal history of pulmonary embolism; D63.8 Anemia in other chronic diseases classified elsewhere; G47.00 Insomnia, unspecified; M11.232 Other chondrocalcinosis, left wrist; M85.88 Other specified disorders of bone density and structure, other site; I11.0 Hypertensive heart disease with heart failure; Z66 Do not resuscitate
CPT/HCPCS: 36415; 71045; 73110; 80048; 80053; 80202; 81001; 82550; 82553; 82803; 83605; 83735; 83874; 83880; 84100; 84484; 85025; 85610; 85730; 87040; 87081; 87086; 93005; 93971; 96365; 96375; 97110; 97112; 97116; 97530; 99285; J1170; J1940; J2001; J2270; J3370; J3480; J7030; J7060; Q0092